=== PATIENT | male | born 1950 | race Caucasian/White ===

== ENCOUNTER 2017-08-21 09:41 | Inpatient (IN) | payer MEDICAID ==
[~2017-08-21] VITALS: Ht 182.9 cm; Wt 97.9 kg
[2017-08-21 10:30] LABS: Basophils # (auto) 0 uL; Basophils % (auto) 0.3 % (0.0-2.0); Eosinophils # (auto) 0.1 uL; Eosinophils % (auto) 1.2 % (0.0-7.0); Hematocrit 39.4 % (41.0-53.0); Hemoglobin 13.5 g/dL (13.5-17.5); Lymphocytes # (auto) 0.8 uL; Lymphocytes % (auto) 12.4 % (10.0-50.0); Mean Corpuscular Hemoglobin 31.5 pg (28.0-32.0); Mean Corpuscular Hgb Conc. 34.3 g/dL (32.0-36.0); Mean Corpuscular Volume 91.9 fL (80.0-100.0); Monocytes # (auto) 0.4 uL; Monocytes % (auto) 5.7 % (0.0-12.0); Neutrophils # (auto) 5.1 uL; Neutrophils % (auto) 80.4 % (37.0-80.0); Nucleated Red Blood Cells % 0.1 %; Platelet Count (auto) 222 10^3/uL (140-450); Red Blood Cells 4.28 10^6/uL (4.5-5.90); Red Cell Distribution Width 14.2 % (11.8-14.3); White Blood Cell 6.3 10^3/uL (4.4-10.8)
[2017-08-21] MEDS ORDERED: ONDANSETRON HCL 4 MG/2 ML VIAL IV ONE (10:30)
[2017-08-21] MEDS ORDERED: MORPHINE SULFATE 8mg/ml INJ SDV IV ONE (10:30)
[2017-08-21] MEDS ORDERED: ASPirin 81 mg TAB PO ONE (10:30)
[2017-08-21 10:53] LABS: Alanine Aminotransferase 38 U/L (16-61); Albumin 2.9 g/dL (3.4-5.0); Alkaline Phosphatase 61 U/L (45-117); Anion Gap 7 (5-15); Aspartate Aminotransferase 22 U/L (15-37); BUN/Creatinine Ratio 13.5; Bilirubin, Total 0.5 mg/dL (0.2-1.0); Blood Urea Nitrogen 17 mg/dL (7-18); Calcium 8.7 mg/dL (8.5-10.1); Carbon Dioxide 30 mmol/L (21-32); Chloride 100 mmol/L (98-107); GFR African American 74 mL/min; GFR Non-African American 61 mL/min; Glucose 95 mg/dL (74-106); Magnesium 1.4 mg/dL (1.6-2.6); Potassium 3.7 mmol/L (3.5-5.1); Sodium 137 mmol/L (136-145); Total Protein 6.9 g/dL (6.4-8.2)
[2017-08-21] MEDS ORDERED: IOHEXOL 350 MG/ML 100ML IJ ONE (11:05)
[2017-08-21] MEDS ORDERED: NITROGLYCERIN 0.4 MG SL TAB SL PRN (13:15)
[2017-08-21] MEDS ORDERED: ALBUTEROL SULF 2.5 MG/0.5ML(0.5%) NEB SOLN NEB PRN (13:15)
[2017-08-21] MEDS ORDERED: cefTRIAXone 1GM/10ml IVPUSH 10 ML IV ONE (13:15)
[2017-08-21] MEDS ORDERED: AZITHROMYCIN 500MG/ 250ML 250 ML IV ONE (13:15)
[2017-08-21] MEDS ORDERED: LACTULOSE 20Gm/30ML SOLN PO PRN (13:15)
[2017-08-21] MEDS: PROMETHAZINE HCL 25 MG/ML 1ML IV PRN (14:10)
[2017-08-21] MEDS: MORPHINE SULFATE 8mg/ml INJ SDV IV PRN ×3 (14:14→20:50)
[2017-08-21] MEDS: SODIUM CHLORIDE 0.9% 1,000 ML IV SCH (14:17)
[2017-08-21] MEDS ORDERED: ENOXAPARIN SOD 40 MG/0.4 ML SYRINGE SC SCH (14:30)
[2017-08-21 14:35] LABS: Lactic Acid w/Reflex 3.5 mmol/L (0.4-2.0)
[2017-08-21] MEDS ORDERED: ENOXAPARIN SOD 100 MG/1 ML SYRINGE SC ONE (15:00)
[2017-08-21] MEDS: DIGOXIN (250MCG/ML) 2 ML AMPULE IV SCH ×2 (15:08→21:13)
[2017-08-21 16:53] LABS: INR 1.31 (0.9-1.15); Partial Thromboplastin Time 27.8 sec (23.78-33.04); Prothrombin Time 13.8 sec (9.27-12.13)
[2017-08-21] MEDS: LORazepam 0.5 MG TAB PO PRN (18:12)
[2017-08-21] MEDS: IPRATROPIUM BROM 0.5 MG/2.5ML INH SOL NEB SCH (19:00)
[2017-08-21] MEDS: ALBUTEROL SULF 2.5 MG/0.5ML(0.5%) NEB SOLN NEB SCH (19:00)
[2017-08-21 21:28] VITALS: BP 109/66
[2017-08-21] MEDS: ENOXAPARIN SOD 100 MG/1 ML SYRINGE SC SCH (22:06)
[2017-08-22] MEDS: ALBUTEROL SULF 2.5 MG/0.5ML(0.5%) NEB SOLN NEB SCH ×4 (00:56→18:52)
[2017-08-22] MEDS: IPRATROPIUM BROM 0.5 MG/2.5ML INH SOL NEB SCH ×4 (00:56→18:52)
[2017-08-22] MEDS: BUDESONIDE (INHALATION) 0.5 MG/2 ML NEB NEB SCH ×3 (00:56→18:52)
[2017-08-22] MEDS: TEMAZEPAM 15 MG CAP PO PRN (01:06)
[2017-08-22] MEDS: LORazepam 0.5 MG TAB PO PRN (01:06)
[2017-08-22] MEDS: SODIUM CHLORIDE 0.9% 1,000 ML IV SCH ×3 (04:00→23:54)
[2017-08-22] MEDS: DIGOXIN (250MCG/ML) 2 ML AMPULE IV SCH (04:00)
[2017-08-22] MEDS ORDERED: LORazepam 2MG/ML-1ML VIAL IV ONE (05:15)
[2017-08-22 05:37] LABS: INR 1.32 (0.9-1.15); Partial Thromboplastin Time 37.9 sec (23.78-33.04); Prothrombin Time 13.9 sec (9.27-12.13)
[2017-08-22] MEDS ORDERED: FUROSEMIDE 20 MG/2 ML VIAL IV ONE (05:45)
[2017-08-22] MEDS ORDERED: diphenhdrAMINE HCL 50 MG/1 ML VL IV ONE (08:00)
[2017-08-22] MEDS ORDERED: LORazepam 2MG/ML-1ML VIAL ONE (08:01)
[2017-08-22 08:48] LABS: Hemoglobin 11.9 g/dL (13.5-17.5); Mean Corpuscular Hemoglobin 31.2 pg (28.0-32.0); Platelet Count (auto) 176 10^3/uL (140-450); Red Blood Cells 3.81 10^6/uL (4.5-5.90); Red Cell Distribution Width 14.2 % (11.8-14.3); White Blood Cell 6.6 10^3/uL (4.4-10.8)
[2017-08-22 08:50] LABS: Basophils % (manual) 0 (0.0-2.0); Eosinophils % (manual) 0 (0-7)
[2017-08-22 08:51] LABS: Blast Cells 0; Myelocytes % 0; Promyelocytes % 0; Reactive Lymphocytes 0
[2017-08-22] MEDS ORDERED: cefTRIAXone 1GM/10ml IVPUSH 10 ML IV SCH (09:00)
[2017-08-22 09:05] LABS: Albumin 2.7 g/dL (3.4-5.0); BUN/Creatinine Ratio 14.8; Bilirubin, Total 0.6 mg/dL (0.2-1.0); Potassium 3.3 mmol/L (3.5-5.1); Total Protein 6.9 g/dL (6.4-8.2)
[2017-08-22 09:07] LABS: Lactic Acid w/Reflex 4.5 mmol/L (0.4-2.0)
[2017-08-22 09:41] LABS: Band Neutrophils % (manual) 30; Lymphocytes % (manual) 7 (10.0-50.0)
[2017-08-22 09:42] LABS: Metamyelocytes % 6; Monocytes % (manual) 14 (0-12)
[2017-08-22] MEDS ORDERED: DILTIAZEM 125mg/125ml BAG KIT 125 ML IV SCH (09:45)
[2017-08-22] MEDS ORDERED: DILTIAZEM HCL 25 MG/5 ML VIAL IV ONE (09:45)
[2017-08-22] MEDS: LORazepam 2MG/ML-1ML VIAL IV PRN ×2 (10:00→19:47)
[2017-08-22] MEDS: PROMETHAZINE HCL 25 MG/ML 1ML IV PRN ×2 (10:04→16:30)
[2017-08-22] MEDS: MORPHINE SULFATE 8mg/ml INJ SDV IV PRN ×2 (10:04→16:30)
[2017-08-22] MEDS: DIGOXIN 0.25 MG TAB PO SCH (10:15)
[2017-08-22] MEDS: LINEZOLID 600MG/300ML 300 ML IV SCH ×2 (10:24→22:21)
[2017-08-22] MEDS: AZITHROMYCIN 500MG/ 250ML 250 ML IV SCH (10:53)
[2017-08-22] MEDS: ENOXAPARIN SOD 100 MG/1 ML SYRINGE SC SCH ×2 (11:02→22:00)
[2017-08-22] MEDS: PIPERACILLIN-TAZOB 3.375GM 100 ML IV SCH ×3 (12:19→23:53)
[2017-08-22 12:51] LABS: Urine Amorphous Crystal FEW /hpf (None Seen); Urine Bacteria NONE SEEN /hpf (None Seen); Urine Blood 3+ /uL (Negative); Urine Hyaline Cast FEW /lpf (0 - 2); Urine Mucus FEW (None Seen); Urine Specific Gravity 1.014 (1.001-1.035); Urine WBC 1 /hpf (0 - 3)
[2017-08-22 13:05] LABS: Alcohol, Urine < 3.0 mg/dL (0-5); Amphetamine Screen, Urine NEGATIVE (NEGATIVE); Barbiturate Scree,Urine NEGATIVE (NEGATIVE); Benzodiazephine Screen, Urine NEGATIVE (NEGATIVE); Cannabinoid Screen, Urine NEGATIVE (NEGATIVE); Cocaine Screen, Urine NEGATIVE (NEGATIVE); Opiate Scree,Urine NEGATIVE (NEGATIVE); Phencyclidine Screen, Urine NEGATIVE (NEGATIVE)
[2017-08-22] MEDS ORDERED: SODIUM CHLORIDE 0.9% 500 ML IV ONE (14:00)
[2017-08-22] MEDS ORDERED: POTASSIUM CHL 20MEQ/100ML 100 ML IV ONE ×2 (14:15→20:39)
[2017-08-22] MEDS ORDERED: PANTOPRAZOLE 40 MG TAB PO ONE (14:30)
[2017-08-22] MEDS ORDERED: ATOR10TA52 (14:49)
[2017-08-22] MEDS ORDERED: CARV3.1240 (14:49)
[2017-08-22] MEDS ORDERED: DIGO0.1262 (14:49)
[2017-08-22] MEDS ORDERED: TIOTCAP (14:49)
[2017-08-22] MEDS ORDERED: ALBUAER3 (14:49)
[2017-08-22] MEDS ORDERED: WARFARIN SODIUM 2.5 MG TAB PO ONE (17:00)
[2017-08-22] MEDS ORDERED: METOPROLOL SUCCINATE XL 50 MG TAB PO ONE (17:30)
[2017-08-22] MEDS ORDERED: POTASSIUM CHLORIDE 40 MEQ, LIDOCAINE 1% (LOCAL ANESTH.) 4 ML in SODIUM CHL 0.9% 100 ML IV ONE ×2 (17:30→20:30)
[2017-08-22] MEDS: ACETAMINOPHEN 500 MG TAB PO PRN (18:08)
[2017-08-22] MEDS ORDERED: POTASSIUM CHL 20MEQ/100ML 100 ML IV SCH ×2 (18:15→20:45)
[2017-08-22] MEDS ORDERED: ALBUMIN 25% 50 ML IV ONE ×2 (20:45→20:49)
[2017-08-22] MEDS: POTASSIUM CHL 20MEQ/100ML 100 ML IV SCH ×2 (20:45→22:45)
[2017-08-22] MEDS ORDERED: FUROSEMIDE 40 MG/4 ML VIAL ONE (21:10)
[2017-08-22] MEDS ORDERED: FUROSEMIDE 40 MG/4 ML VIAL IV ONE (21:15)
[2017-08-22] MEDS: METOPROLOL SUCCINATE XL 50 MG TAB PO SCH (22:00)
[2017-08-22] MEDS: ATORVASTATIN 20 MG TAB PO SCH (22:21)
[2017-08-23] MEDS: SODIUM CHLORIDE 0.9% 1,000 ML IV SCH ×3 (00:15→13:12)
[2017-08-23] MEDS: IPRATROPIUM BROM 0.5 MG/2.5ML INH SOL NEB SCH ×4 (00:46→18:28)
[2017-08-23] MEDS: ALBUTEROL SULF 2.5 MG/0.5ML(0.5%) NEB SOLN NEB SCH ×4 (00:46→18:00)
[2017-08-23] MEDS: ACETAMINOPHEN 500 MG TAB PO PRN (02:08)
[2017-08-23] MEDS ORDERED: MAGNESIUM SULFATE 1GM/100ML 100 ML IV ONE ×2 (04:30→05:00)
[2017-08-23] MEDS: POTASSIUM CHL 20MEQ/100ML 100 ML IV SCH ×2 (05:37→08:10)
[2017-08-23] MEDS: PIPERACILLIN-TAZOB 3.375GM 100 ML IV SCH ×3 (05:46→17:12)
[2017-08-23] MEDS: BUDESONIDE (INHALATION) 0.5 MG/2 ML NEB NEB SCH ×2 (06:09→18:28)
[2017-08-23 07:06] LABS: Basophils # (auto) 0 uL; Basophils % (auto) 0.1 % (0.0-2.0); Eosinophils # (auto) 0 uL; Eosinophils % (auto) 0.5 % (0.0-7.0); Hematocrit 32.7 % (41.0-53.0); Hemoglobin 11.3 g/dL (13.5-17.5); Lymphocytes # (auto) 0.3 uL; Lymphocytes % (auto) 4.6 % (10.0-50.0); Mean Corpuscular Hemoglobin 31.8 pg (28.0-32.0); Mean Corpuscular Hgb Conc. 34.6 g/dL (32.0-36.0); Mean Corpuscular Volume 91.9 fL (80.0-100.0); Monocytes # (auto) 0.2 uL; Monocytes % (auto) 2.3 % (0.0-12.0); Neutrophils # (auto) 6.6 uL; Neutrophils % (auto) 92.5 % (37.0-80.0); Platelet Count (auto) 159 10^3/uL (140-450); Red Blood Cells 3.56 10^6/uL (4.5-5.90); Red Cell Distribution Width 14.3 % (11.8-14.3); White Blood Cell 7.1 10^3/uL (4.4-10.8)
[2017-08-23 07:11] LABS: INR 1.07 (0.9-1.15); Prothrombin Time 11.4 sec (9.27-12.13)
[2017-08-23 07:24] LABS: Albumin 2.6 g/dL (3.4-5.0); BUN/Creatinine Ratio 19.4; Bilirubin, Total 0.7 mg/dL (0.2-1.0); Calcium 8.5 mg/dL (8.5-10.1); Potassium 3.4 mmol/L (3.5-5.1); Total Protein 6.9 g/dL (6.4-8.2)
[2017-08-23] MEDS: DIGOXIN 0.25 MG TAB PO SCH (09:50)
[2017-08-23] MEDS: PANTOPRAZOLE 40 MG TAB PO SCH (09:51)
[2017-08-23] MEDS: METOPROLOL SUCCINATE XL 50 MG TAB PO SCH ×2 (09:51→22:40)
[2017-08-23] MEDS: PROMETHAZINE HCL 25 MG/ML 1ML IV PRN ×2 (09:51→22:44)
[2017-08-23] MEDS: AZITHROMYCIN 500MG/ 250ML 250 ML IV SCH (09:52)
[2017-08-23] MEDS: ENOXAPARIN SOD 100 MG/1 ML SYRINGE SC SCH (09:56)
[2017-08-23] MEDS ORDERED: VANCOMYCIN PER PHARMACY 0 MG IV SCH (10:00)
[2017-08-23] MEDS: VANCOMYCIN 1,250 MG in D5W 5% 250 ML IV SCH ×2 (10:33→22:01)
[2017-08-23] MEDS ORDERED: FUROSEMIDE 20 MG/2 ML VIAL IV ONE (11:15)
[2017-08-23] MEDS: LORazepam 2MG/ML-1ML VIAL IV PRN (13:59)
[2017-08-23] MEDS ORDERED: WARFARIN SODIUM 2.5 MG TAB PO ONE (17:00)
[2017-08-23] MEDS ORDERED: SALINE 0.65 % NASAL SPRAY 45ML BOTTLE EACHNOSTRI SCH (18:00)
[2017-08-23] MEDS: SALINE 0.65 % NASAL SPRAY 45ML BOTTLE EACHNOSTRI SCH ×2 (18:02→22:50)
[2017-08-23] MEDS: ATORVASTATIN 20 MG TAB PO SCH (22:37)
[2017-08-23] MEDS: TEMAZEPAM 15 MG CAP PO PRN (22:44)
[2017-08-24] MEDS: IPRATROPIUM BROM 0.5 MG/2.5ML INH SOL NEB SCH ×4 (00:19→19:28)
[2017-08-24] MEDS: ALBUTEROL SULF 2.5 MG/0.5ML(0.5%) NEB SOLN NEB SCH ×4 (00:19→19:28)
[2017-08-24] MEDS: PIPERACILLIN-TAZOB 3.375GM 100 ML IV SCH ×4 (00:49→17:44)
[2017-08-24] MEDS: SODIUM CHLORIDE 0.9% 1,000 ML IV SCH ×2 (03:18→17:44)
[2017-08-24 06:22] LABS: Basophils # (auto) 0 uL; Basophils % (auto) 0.1 % (0.0-2.0); Eosinophils # (auto) 0 uL; Eosinophils % (auto) 0.1 % (0.0-7.0); Hematocrit 32.2 % (41.0-53.0); Lymphocytes # (auto) 0.6 uL; Lymphocytes % (auto) 5.3 % (10.0-50.0); Mean Corpuscular Hemoglobin 31.5 pg (28.0-32.0); Mean Corpuscular Hgb Conc. 34.2 g/dL (32.0-36.0); Mean Corpuscular Volume 92.2 fL (80.0-100.0); Monocytes # (auto) 0.7 uL; Monocytes % (auto) 6.6 % (0.0-12.0); Neutrophils # (auto) 9.4 uL; Neutrophils % (auto) 87.9 % (37.0-80.0); Nucleated Red Blood Cells % 0.1 %; Platelet Count (auto) 183 10^3/uL (140-450); Red Blood Cells 3.49 10^6/uL (4.5-5.90); Red Cell Distribution Width 14.5 % (11.8-14.3); White Blood Cell 10.7 10^3/uL (4.4-10.8)
[2017-08-24 06:36] LABS: INR 1.33 (0.9-1.15); Partial Thromboplastin Time 27.3 sec (23.78-33.04)
[2017-08-24] MEDS: SALINE 0.65 % NASAL SPRAY 45ML BOTTLE EACHNOSTRI SCH ×4 (06:46→22:00)
[2017-08-24 06:50] LABS: BUN/Creatinine Ratio 27.9; Calcium 9.2 mg/dL (8.5-10.1); Potassium 3.2 mmol/L (3.5-5.1)
[2017-08-24] MEDS: METOPROLOL SUCCINATE XL 50 MG TAB PO SCH (10:00)
[2017-08-24] MEDS ORDERED: LORATADINE 10 MG TAB PO SCH (10:00)
[2017-08-24] MEDS: BUDESONIDE (INHALATION) 0.5 MG/2 ML NEB NEB SCH ×2 (10:00→19:29)
[2017-08-24] MEDS: VANCOMYCIN 1,250 MG in D5W 5% 250 ML IV SCH ×3 (10:01→22:37)
[2017-08-24] MEDS: DIGOXIN 0.25 MG TAB PO SCH (10:02)
[2017-08-24] MEDS: LORATADINE 10 MG TAB PO SCH (10:02)
[2017-08-24] MEDS: PANTOPRAZOLE 40 MG TAB PO SCH (10:02)
[2017-08-24] MEDS: AZITHROMYCIN 500MG/ 250ML 250 ML IV SCH (10:05)
[2017-08-24] MEDS ORDERED: POTASSIUM CHL 20 Meq TABLET PO ONE (12:30)
[2017-08-24 13:00] VITALS: BP 111/42
[2017-08-24 16:58] VITALS: BP 148/79
[2017-08-24 17:00] VITALS: BP 148/79
[2017-08-24] MEDS ORDERED: WARFARIN SODIUM 2.5 MG TAB PO ONE (17:00)
[2017-08-24] MEDS: PROMETHAZINE HCL 25 MG/ML 1ML IV PRN (17:47)
[2017-08-24] MEDS: HYDROcodone-ACET 5/325MG TAB PO PRN (20:21)
[2017-08-24] MEDS: TEMAZEPAM 15 MG CAP PO PRN (20:21)
[2017-08-24] MEDS: ACETAMINOPHEN 500 MG TAB PO PRN (21:42)
[2017-08-24 22:00] VITALS: BP 166/74
[2017-08-24 23:40] VITALS: BP 166/74
[2017-08-25] MEDS: ATORVASTATIN 20 MG TAB PO SCH ×2 (00:06→21:42)
[2017-08-25] MEDS: METOPROLOL SUCCINATE XL 50 MG TAB PO SCH ×3 (00:07→21:41)
[2017-08-25] MEDS: ALBUTEROL SULF 2.5 MG/0.5ML(0.5%) NEB SOLN NEB SCH ×4 (00:28→19:52)
[2017-08-25] MEDS: IPRATROPIUM BROM 0.5 MG/2.5ML INH SOL NEB SCH ×4 (00:28→19:52)
[2017-08-25] MEDS: PIPERACILLIN-TAZOB 3.375GM 100 ML IV SCH ×6 (01:41→23:15)
[2017-08-25] MEDS: LORazepam 2MG/ML-1ML VIAL IV PRN (01:53)
[2017-08-25] MEDS: SALINE 0.65 % NASAL SPRAY 45ML BOTTLE EACHNOSTRI SCH ×4 (06:00→21:53)
[2017-08-25 06:06] LABS: Hematocrit 37.2 % (41.0-53.0); Hemoglobin 12.5 g/dL (13.5-17.5); Mean Corpuscular Hemoglobin 30.8 pg (28.0-32.0); Mean Corpuscular Hgb Conc. 33.7 g/dL (32.0-36.0); Mean Corpuscular Volume 91.5 fL (80.0-100.0); Platelet Count (auto) 177 10^3/uL (140-450); Red Blood Cells 4.07 10^6/uL (4.5-5.90); Red Cell Distribution Width 14.7 % (11.8-14.3); White Blood Cell 11.2 10^3/uL (4.4-10.8)
[2017-08-25] MEDS: BUDESONIDE (INHALATION) 0.5 MG/2 ML NEB NEB SCH ×2 (06:18→19:52)
[2017-08-25 06:23] LABS: Basophils % (manual) 0 (0.0-2.0); Blast Cells 0; Metamyelocytes % 0; Myelocytes % 0; Promyelocytes % 0; Reactive Lymphocytes 0
[2017-08-25 06:25] LABS: INR 2.95 (0.9-1.15); Prothrombin Time 29.7 sec (9.27-12.13)
[2017-08-25 06:26] LABS: Albumin 2.4 g/dL (3.4-5.0); BUN/Creatinine Ratio 22.9
[2017-08-25 06:28] LABS: Bilirubin, Total 0.5 mg/dL (0.2-1.0); Total Protein 6.9 g/dL (6.4-8.2)
[2017-08-25 07:44] LABS: Band Neutrophils % (manual) 1; Eosinophils % (manual) 4 (0-7); Lymphocytes % (manual) 6 (10.0-50.0); Monocytes % (manual) 14 (0-12)
[2017-08-25] MEDS: SODIUM CHLORIDE 0.9% 1,000 ML IV SCH (09:04)
[2017-08-25] MEDS: LORATADINE 10 MG TAB PO SCH (09:48)
[2017-08-25] MEDS: DIGOXIN 0.25 MG TAB PO SCH (09:49)
[2017-08-25] MEDS: PANTOPRAZOLE 40 MG TAB PO SCH (09:49)
[2017-08-25] MEDS ORDERED: VANCOMYCIN 1,250 MG in D5W 5% 250 ML IV SCH (10:00)
[2017-08-25] MEDS: AZITHROMYCIN 500MG/ 250ML 250 ML IV SCH (11:13)
[2017-08-25 13:00] VITALS: BP 124/76
[2017-08-25] MEDS ORDERED: POTASSIUM CHL 20 Meq TABLET PO ONE (13:30)
[2017-08-25] MEDS: predniSONE 20 MG TAB PO SCH (14:23)
[2017-08-25] MEDS: SOD CHL 0.45% WITH 20MEQ KCL 1,000 ML IV SCH (14:23)
[2017-08-25 17:00] VITALS: BP 104/61
[2017-08-25 22:00] VITALS: BP 117/67
[2017-08-25 22:40] VITALS: BP 112/61
[2017-08-25] MEDS: TEMAZEPAM 15 MG CAP PO PRN (23:15)
[2017-08-26] MEDS: IPRATROPIUM BROM 0.5 MG/2.5ML INH SOL NEB SCH ×4 (01:36→19:27)
[2017-08-26] MEDS: ALBUTEROL SULF 2.5 MG/0.5ML(0.5%) NEB SOLN NEB SCH ×4 (01:36→19:27)
[2017-08-26] MEDS: SOD CHL 0.45% WITH 20MEQ KCL 1,000 ML IV SCH ×2 (03:32→21:09)
[2017-08-26 04:45] VITALS: BP 128/69
[2017-08-26] MEDS: PIPERACILLIN-TAZOB 3.375GM 100 ML IV SCH ×4 (05:29→23:42)
[2017-08-26] MEDS: SALINE 0.65 % NASAL SPRAY 45ML BOTTLE EACHNOSTRI SCH ×4 (05:29→21:09)
[2017-08-26] MEDS: BUDESONIDE (INHALATION) 0.5 MG/2 ML NEB NEB SCH ×2 (05:54→19:27)
[2017-08-26 06:41] LABS: Hematocrit 36.8 % (41.0-53.0); Hemoglobin 12.7 g/dL (13.5-17.5); Mean Corpuscular Hemoglobin 31.5 pg (28.0-32.0); Mean Corpuscular Hgb Conc. 34.5 g/dL (32.0-36.0); Mean Corpuscular Volume 91.3 fL (80.0-100.0); Platelet Count (auto) 204 10^3/uL (140-450); Red Blood Cells 4.03 10^6/uL (4.5-5.90); Red Cell Distribution Width 14.3 % (11.8-14.3); White Blood Cell 16.7 10^3/uL (4.4-10.8)
[2017-08-26 06:59] LABS: Calcium 9.1 mg/dL (8.5-10.1); Potassium 3.6 mmol/L (3.5-5.1)
[2017-08-26 07:02] LABS: BUN/Creatinine Ratio 24.2
[2017-08-26 07:16] LABS: Band Neutrophils % (manual) 0; Basophils % (manual) 0 (0.0-2.0); Blast Cells 0; Metamyelocytes % 0; Myelocytes % 0; Promyelocytes % 0; Reactive Lymphocytes 0
[2017-08-26 07:43] LABS: INR 3.29 (0.9-1.15); Partial Thromboplastin Time 32.4 sec (23.78-33.04); Prothrombin Time 32.9 sec (9.27-12.13)
[2017-08-26 09:00] VITALS: BP 113/57
[2017-08-26] MEDS: AZITHROMYCIN 500MG/ 250ML 250 ML IV SCH (10:06)
[2017-08-26] MEDS: DIGOXIN 0.25 MG TAB PO SCH (10:06)
[2017-08-26] MEDS: predniSONE 20 MG TAB PO SCH (10:06)
[2017-08-26] MEDS: METOPROLOL SUCCINATE XL 50 MG TAB PO SCH ×2 (10:07→21:10)
[2017-08-26] MEDS: LORATADINE 10 MG TAB PO SCH (10:07)
[2017-08-26] MEDS: PANTOPRAZOLE 40 MG TAB PO SCH (10:08)
[2017-08-26 10:17] LABS: Lymphocytes % (manual) 13 (10.0-50.0); Monocytes % (manual) 16 (0-12)
[2017-08-26 10:18] LABS: Eosinophils % (manual) 2 (0-7)
[2017-08-26 13:00] VITALS: BP 119/61
[2017-08-26 17:00] VITALS: BP 111/63
[2017-08-26 20:38] VITALS: BP 104/48
[2017-08-26] MEDS: ATORVASTATIN 20 MG TAB PO SCH (21:09)
[2017-08-26] MEDS: TEMAZEPAM 15 MG CAP PO PRN (21:10)
[2017-08-26 22:10] VITALS: BP 124/62
[2017-08-27] VITALS (7 sets, daily range): BP systolic 103–137; BP diastolic 49–67
[2017-08-27] MEDS: IPRATROPIUM BROM 0.5 MG/2.5ML INH SOL NEB SCH ×4 (00:41→19:07)
[2017-08-27] MEDS: ALBUTEROL SULF 2.5 MG/0.5ML(0.5%) NEB SOLN NEB SCH ×4 (00:41→19:08)
[2017-08-27] MEDS: PIPERACILLIN-TAZOB 3.375GM 100 ML IV SCH ×4 (05:29→23:42)
[2017-08-27] MEDS: SALINE 0.65 % NASAL SPRAY 45ML BOTTLE EACHNOSTRI SCH ×4 (05:29→21:36)
[2017-08-27] MEDS: SOD CHL 0.45% WITH 20MEQ KCL 1,000 ML IV SCH ×2 (05:29→19:05)
[2017-08-27 05:51] LABS: Hematocrit 34.7 % (41.0-53.0); Hemoglobin 11.6 g/dL (13.5-17.5); Mean Corpuscular Hgb Conc. 33.4 g/dL (32.0-36.0); Mean Corpuscular Volume 92.8 fL (80.0-100.0); Platelet Count (auto) 286 10^3/uL (140-450); Red Blood Cells 3.74 10^6/uL (4.5-5.90); Red Cell Distribution Width 14.6 % (11.8-14.3); White Blood Cell 28.4 10^3/uL (4.4-10.8)
[2017-08-27 06:05] LABS: INR 2.23 (0.9-1.15); Partial Thromboplastin Time 28.5 sec (23.78-33.04); Prothrombin Time 22.8 sec (9.27-12.13)
[2017-08-27 06:19] LABS: Band Neutrophils % (manual) 0; Basophils % (manual) 0 (0.0-2.0); Blast Cells 0; Promyelocytes % 0; Reactive Lymphocytes 0
[2017-08-27 06:23] LABS: BUN/Creatinine Ratio 17.2; Calcium 9.1 mg/dL (8.5-10.1)
[2017-08-27 06:37] LABS: Potassium 2.9 mmol/L (3.5-5.1)
[2017-08-27] MEDS: BUDESONIDE (INHALATION) 0.5 MG/2 ML NEB NEB SCH ×2 (06:37→19:08)
[2017-08-27] MEDS ORDERED: POTASSIUM CHL 20 Meq TABLET PO ONE (07:45)
[2017-08-27] MEDS: HYDROcodone-ACET 5/325MG TAB PO PRN ×2 (08:56→20:08)
[2017-08-27] MEDS: METOPROLOL SUCCINATE XL 50 MG TAB PO SCH ×2 (10:00→21:37)
[2017-08-27] MEDS: AZITHROMYCIN 500MG/ 250ML 250 ML IV SCH (10:04)
[2017-08-27] MEDS: predniSONE 20 MG TAB PO SCH (10:04)
[2017-08-27] MEDS: PANTOPRAZOLE 40 MG TAB PO SCH (10:04)
[2017-08-27] MEDS: LORATADINE 10 MG TAB PO SCH (10:05)
[2017-08-27] MEDS: DIGOXIN 0.25 MG TAB PO SCH (10:05)
[2017-08-27] MEDS: PROMETHAZINE HCL 25 MG/ML 1ML IV PRN ×2 (11:16→18:17)
[2017-08-27 11:48] LABS: Eosinophils % (manual) 3 (0-7); Lymphocytes % (manual) 18 (10.0-50.0); Metamyelocytes % 4; Monocytes % (manual) 9 (0-12); Myelocytes % 3
[2017-08-27] MEDS ORDERED: WARFARIN SODIUM 2 MG TAB PO ONE (17:00)
[2017-08-27] MEDS: ATORVASTATIN 20 MG TAB PO SCH (21:36)
[2017-08-28] MEDS: IPRATROPIUM BROM 0.5 MG/2.5ML INH SOL NEB SCH ×4 (01:17→18:35)
[2017-08-28] MEDS: ALBUTEROL SULF 2.5 MG/0.5ML(0.5%) NEB SOLN NEB SCH ×4 (01:17→18:35)
[2017-08-28 04:50] VITALS: BP 108/75
[2017-08-28] MEDS: HYDROcodone-ACET 5/325MG TAB PO PRN (05:06)
[2017-08-28] MEDS: SALINE 0.65 % NASAL SPRAY 45ML BOTTLE EACHNOSTRI SCH ×4 (05:19→21:23)
[2017-08-28] MEDS: PIPERACILLIN-TAZOB 3.375GM 100 ML IV SCH ×4 (05:20→23:28)
[2017-08-28 05:52] LABS: Hematocrit 33.8 % (41.0-53.0); Mean Corpuscular Hemoglobin 30.5 pg (28.0-32.0); Mean Corpuscular Hgb Conc. 32.7 g/dL (32.0-36.0); Mean Corpuscular Volume 93.4 fL (80.0-100.0); Platelet Count (auto) 341 10^3/uL (140-450); Red Blood Cells 3.62 10^6/uL (4.5-5.90); Red Cell Distribution Width 14.8 % (11.8-14.3); White Blood Cell 27.5 10^3/uL (4.4-10.8)
[2017-08-28 06:06] LABS: Basophils % (manual) 0 (0.0-2.0); Blast Cells 0; Metamyelocytes % 0; Myelocytes % 0; Promyelocytes % 0
[2017-08-28 06:09] LABS: INR 1.89 (0.9-1.15); Partial Thromboplastin Time 26.8 sec (23.78-33.04); Prothrombin Time 19.5 sec (9.27-12.13)
[2017-08-28 06:40] LABS: Calcium 8.7 mg/dL (8.5-10.1); Magnesium 2.1 mg/dL (1.6-2.6); Potassium 3.4 mmol/L (3.5-5.1)
[2017-08-28] MEDS: BUDESONIDE (INHALATION) 0.5 MG/2 ML NEB NEB SCH ×2 (07:07→18:35)
[2017-08-28 07:57] LABS: Band Neutrophils % (manual) 5; Eosinophils % (manual) 2 (0-7); Lymphocytes % (manual) 27 (10.0-50.0); Monocytes % (manual) 5 (0-12); Reactive Lymphocytes 4
[2017-08-28 08:02] VITALS: BP 119/57
[2017-08-28] MEDS: SOD CHL 0.45% WITH 20MEQ KCL 1,000 ML IV SCH ×2 (08:25→17:00)
[2017-08-28] MEDS: LORATADINE 10 MG TAB PO SCH (09:39)
[2017-08-28] MEDS: PANTOPRAZOLE 40 MG TAB PO SCH (09:39)
[2017-08-28] MEDS: METOPROLOL SUCCINATE XL 50 MG TAB PO SCH ×2 (09:40→21:24)
[2017-08-28] MEDS: DIGOXIN 0.25 MG TAB PO SCH (09:41)
[2017-08-28] MEDS ORDERED: predniSONE 20 MG TAB PO SCH (10:00)
[2017-08-28 11:55] VITALS: BP 124/52
[2017-08-28] MEDS ORDERED: TEMAZEPAM 15 MG CAP PO PRN (13:00)
[2017-08-28] MEDS ORDERED: POTASSIUM CHL 20 Meq TABLET PO ONE (13:00)
[2017-08-28] MEDS ORDERED: HYDROcodone-ACET 5/325MG TAB PO PRN (13:00)
[2017-08-28 16:06] VITALS: BP 115/68
[2017-08-28] MEDS ORDERED: WARFARIN SODIUM 5 MG TAB PO ONE (17:00)
[2017-08-28] MEDS: ATORVASTATIN 20 MG TAB PO SCH (21:23)
[2017-08-28 22:00] VITALS: BP 110/64
[2017-08-28] MEDS: PROMETHAZINE HCL 25 MG/ML 1ML IV PRN (23:32)
[2017-08-29 05:00] VITALS: BP 115/71
[2017-08-29] MEDS: PROMETHAZINE HCL 25 MG/ML 1ML IV PRN ×2 (05:02→06:24)
[2017-08-29 05:45] LABS: Basophils # (auto) 0.1 uL; Basophils % (auto) 0.3 % (0.0-2.0); Eosinophils # (auto) 0.4 uL; Hematocrit 32.5 % (41.0-53.0); Hemoglobin 10.9 g/dL (13.5-17.5); Lymphocytes # (auto) 4.1 uL; Lymphocytes % (auto) 19.5 % (10.0-50.0); Mean Corpuscular Hemoglobin 31.2 pg (28.0-32.0); Mean Corpuscular Hgb Conc. 33.6 g/dL (32.0-36.0); Mean Corpuscular Volume 92.9 fL (80.0-100.0); Monocytes # (auto) 1.8 uL; Monocytes % (auto) 8.7 % (0.0-12.0); Neutrophils # (auto) 14.5 uL; Neutrophils % (auto) 69.5 % (37.0-80.0); Nucleated Red Blood Cells % 0.1 %; Platelet Count (auto) 365 10^3/uL (140-450); Red Cell Distribution Width 14.5 % (11.8-14.3); White Blood Cell 20.9 10^3/uL (4.4-10.8)
[2017-08-29 06:05] LABS: Potassium 3.5 mmol/L (3.5-5.1)
[2017-08-29] MEDS: PIPERACILLIN-TAZOB 3.375GM 100 ML IV SCH ×2 (06:23→11:50)
[2017-08-29] MEDS: SALINE 0.65 % NASAL SPRAY 45ML BOTTLE EACHNOSTRI SCH ×2 (06:23→11:50)
[2017-08-29] MEDS: IPRATROPIUM BROM 0.5 MG/2.5ML INH SOL NEB SCH ×3 (07:01→11:55)
[2017-08-29] MEDS: ALBUTEROL SULF 2.5 MG/0.5ML(0.5%) NEB SOLN NEB SCH ×3 (07:02→11:55)
[2017-08-29] MEDS: BUDESONIDE (INHALATION) 0.5 MG/2 ML NEB NEB SCH (07:02)
[2017-08-29 09:00] VITALS: BP 112/72
[2017-08-29] MEDS: PANTOPRAZOLE 40 MG TAB PO SCH (09:22)
[2017-08-29] MEDS: DIGOXIN 0.25 MG TAB PO SCH (09:22)
[2017-08-29] MEDS: LORATADINE 10 MG TAB PO SCH (09:22)
[2017-08-29] MEDS: METOPROLOL SUCCINATE XL 50 MG TAB PO SCH (09:23)
[2017-08-29] MEDS ORDERED: predniSONE 20 MG TAB PO SCH (10:00)
[2017-08-29] MEDS: SOD CHL 0.45% WITH 20MEQ KCL 1,000 ML IV SCH (11:06)
[2017-08-29 11:20] LABS: INR 1.4 (0.9-1.15); Prothrombin Time 14.7 sec (9.27-12.13)
[2017-08-29] MEDS ORDERED: POTASSIUM CHL 20 Meq TABLET PO ONE (11:30)
[2017-08-29 13:00] VITALS: BP_SYST 105; BP_SYST 175; BP_DIAS 57; BP_DIAS 80
[2017-08-29 13:10] LABS: Hematocrit 36.4 % (41.0-53.0); Mean Corpuscular Hemoglobin 30.8 pg (28.0-32.0); Mean Corpuscular Hgb Conc. 32.9 g/dL (32.0-36.0); Mean Corpuscular Volume 93.7 fL (80.0-100.0); Platelet Count (auto) 413 10^3/uL (140-450); Red Blood Cells 3.89 10^6/uL (4.5-5.90); Red Cell Distribution Width 15.1 % (11.8-14.3); White Blood Cell 18.5 10^3/uL (4.4-10.8)
[2017-08-29 13:24] LABS: Basophils % (manual) 0 (0.0-2.0); Blast Cells 0; Promyelocytes % 0; Reactive Lymphocytes 0
[2017-08-29 13:42] LABS: Band Neutrophils % (manual) 1; Eosinophils % (manual) 2 (0-7); Lymphocytes % (manual) 17 (10.0-50.0); Metamyelocytes % 3; Monocytes % (manual) 4 (0-12); Myelocytes % 3
[2017-08-29] MEDS ORDERED: LEVO750T2 PO (14:19)
[2017-08-29] MEDS ORDERED: TIOTCAP IN (14:19)
[2017-08-29] MEDS ORDERED: APIX5TAB PO (14:19)
[2017-08-29] MEDS ORDERED: ALBUAER3 IN (14:19)
[2017-08-29] MEDS ORDERED: SACC250C PO (14:22)
[2017-08-29] MEDS ORDERED: APIXABAN 5 MG TAB PO SCH (22:00)
== END 2017-08-29 16:50 | disposition home health service (06) | DRG 720 ==
LOC: ER 09:41 → TELE 09:42 → TELE-WESTW 08-24 12:41
PROVIDERS: ADMIT Internal Medicine; ATTEND Internal Medicine
DX: A41.9 Sepsis, unspecified organism (principal); N17.0 Acute kidney failure with tubular necrosis; J96.01 Acute respiratory failure with hypoxia; J13 Pneumonia due to Streptococcus pneumoniae; E44.0 Moderate protein-calorie malnutrition; I11.9 Hypertensive heart disease without heart failure; K76.0 Fatty (change of) liver, not elsewhere classified; J44.0 Chronic obstructive pulmonary disease with (acute) lower respiratory infection; I48.0 Paroxysmal atrial fibrillation; I48.91 Unspecified atrial fibrillation; F41.9 Anxiety disorder, unspecified; G47.00 Insomnia, unspecified; J44.1 Chronic obstructive pulmonary disease with (acute) exacerbation; E87.6 Hypokalemia; I25.10 Atherosclerotic heart disease of native coronary artery without angina pectoris; E78.5 Hyperlipidemia, unspecified; E66.01 Morbid (severe) obesity due to excess calories; T38.0X5A Adverse effect of glucocorticoids and synthetic analogues, initial encounter; Z86.711 Personal history of pulmonary embolism; I25.2 Old myocardial infarction; Z87.891 Personal history of nicotine dependence; Z95.5 Presence of coronary angioplasty implant and graft; Z68.29 Body mass index [BMI] 29.0-29.9, adult
CPT/HCPCS: 36415; 36600; 71045; 71046; 71275; 80048; 80053; 80061; 80162; 80202; 80307; 81001; 82805; 82962; 83605; 83735; 83880; 84132; 84484; 85007; 85025; 85027; 85610; 85730; 87040; 87070; 87077; 87086; 87186; 87205; 93005; 93306; 94640; 97110; 97116; 97163; 97530; 99291; J2001; J2270; J2543; J3480; J7060

== ENCOUNTER 2017-09-10 11:13 | Emergency (ER) | payer MEDICAID ==
[~2017-09-10] VITALS: Ht 185.4 cm; Wt 93.0 kg
[~2017-09-10 11:13] MED LIST: ALBUAER3; ALBUAER3 IN; APIX5TAB PO; ATOR10TA52; CARV3.1240; DIGO0.1262; LEVO750T2 PO; SACC250C PO; TIOTCAP; TIOTCAP IN
[2017-09-10 11:30] VITALS: BP 94/70
[2017-09-10 12:50] LABS: Basophils # (auto) 0.1 uL; Basophils % (auto) 1.1 % (0.0-2.0); Eosinophils # (auto) 0.4 uL; Eosinophils % (auto) 3.2 % (0.0-7.0); Hematocrit 37.9 % (41.0-53.0); Hemoglobin 12.8 g/dL (13.5-17.5); Lymphocytes % (auto) 21.6 % (10.0-50.0); Mean Corpuscular Hgb Conc. 33.7 g/dL (32.0-36.0); Monocytes # (auto) 0.7 uL; Monocytes % (auto) 5.4 % (0.0-12.0); Neutrophils # (auto) 9.4 uL; Neutrophils % (auto) 68.7 % (37.0-80.0); Platelet Count (auto) 377 10^3/uL (140-450); Red Blood Cells 4.12 10^6/uL (4.5-5.90); Red Cell Distribution Width 13.9 % (11.8-14.3); White Blood Cell 13.7 10^3/uL (4.4-10.8)
[2017-09-10 13:28] LABS: Alanine Aminotransferase 40 U/L (16-61); Albumin 2.8 g/dL (3.4-5.0); Alkaline Phosphatase 86 U/L (45-117); Anion Gap 8 (5-15); Aspartate Aminotransferase 22 U/L (15-37); BUN/Creatinine Ratio 10.9; Bilirubin, Total 0.4 mg/dL (0.2-1.0); Blood Urea Nitrogen 10 mg/dL (7-18); Calcium 9.1 mg/dL (8.5-10.1); Carbon Dioxide 26 mmol/L (21-32); Chloride 106 mmol/L (98-107); GFR African American 106 mL/min; GFR Non-African American 88 mL/min; Glucose 101 mg/dL (74-106); Magnesium 2.1 mg/dL (1.6-2.6); Potassium 4.4 mmol/L (3.5-5.1); Sodium 140 mmol/L (136-145); Total Protein 7.8 g/dL (6.4-8.2)
== END 2017-09-10 18:28 | disposition home or self-care (01) ==
LOC: ER 11:13
DX: R42 Dizziness and giddiness (principal); R53.1 Weakness; J44.9 Chronic obstructive pulmonary disease, unspecified; I10 Essential (primary) hypertension; E78.5 Hyperlipidemia, unspecified; Z79.899 Other long term (current) drug therapy
CPT/HCPCS: 36415; 70450; 71046; 80053; 82962; 83735; 84484; 85025; 93005; 94761

== ENCOUNTER → 2018-11-01 | Outpatient (CLI) | payer MEDICARE, OTHER ==
[~2018-11-01] MED LIST changes: -ALBUAER3; -APIX5TAB PO; +ASPI-404 PO; -ATOR10TA52; +ATOR10TA52 PO; -CARV3.1240; +CARV3.1240 PO; -DIGO0.1262; +DIGO0.1262 PO; -LEVO750T2 PO; +METO25TA5 PO; +POM PO; -SACC250C PO; -TIOTCAP
[2018-11-01 10:50] LABS: Basophils # (auto) 0.1 uL; Eosinophils # (auto) 0.3 uL; Eosinophils % (auto) 3.1 % (0.0-7.0); Hemoglobin 14.2 g/dL (13.5-17.5); Lymphocytes # (auto) 2.1 uL; Mean Corpuscular Hemoglobin 32.2 pg (28.0-32.0); Mean Corpuscular Hgb Conc. 33.8 g/dL (32.0-36.0); Mean Corpuscular Volume 95.2 fL (80.0-100.0); Monocytes # (auto) 0.7 uL; Monocytes % (auto) 7.8 % (0.0-12.0); Neutrophils # (auto) 5.9 uL; Neutrophils % (auto) 65.1 % (37.0-80.0); Nucleated Red Blood Cells % 0.1 %; Platelet Count (auto) 250 10^3/uL (140-450); Red Blood Cells 4.41 10^6/uL (4.5-5.90)
[2018-11-01 11:01] LABS: Albumin 3.8 g/dL (3.4-5.0); BUN/Creatinine Ratio 21.4; Calcium 9.6 mg/dL (8.5-10.1); Potassium 3.8 mmol/L (3.5-5.1)
[2018-11-01 11:06] LABS: Bilirubin, Total 0.5 mg/dL (0.2-1.0)
== END | disposition home or self-care (01) ==
LOC: LAB 10:10
PROVIDERS: ATTEND Internal Medicine
DX: I25.2 Old myocardial infarction (principal); I48.0 Paroxysmal atrial fibrillation; I70.0 Atherosclerosis of aorta; I11.9 Hypertensive heart disease without heart failure; J43.9 Emphysema, unspecified; Z87.891 Personal history of nicotine dependence
CPT/HCPCS: 36415; 80053; 80061; 84153; 84443; 85025

== ENCOUNTER → 2018-12-04 | Outpatient (CLI) | payer MEDICARE, OTHER ==
[2018-12-04 13:08] LABS: Free T4 (Free Thyroxine) 1.23 ng/dL (0.89-1.76); T3 Total 0.97 ng/mL (0.60-1.81)
== END | disposition home or self-care (01) ==
LOC: LAB 11:07
PROVIDERS: ATTEND Internal Medicine
DX: E03.9 Hypothyroidism, unspecified (principal)
CPT/HCPCS: 36415; 84439; 84443; 84480

== ENCOUNTER 2019-08-04 16:28 | Inpatient (IN) | payer BC, MEDICAID ==
[~2019-08-04] VITALS: Ht 182.9 cm; Wt 102.7 kg
[2019-08-04] MEDS: MAGNESIUM SULFATE 1GM/100ML 100 ML IV SCH ×4 (01:32→23:36)
[~2019-08-04 16:28] MED LIST changes: +DIGO0.12 PO; -DIGO0.1262 PO
[2019-08-04] MEDS ORDERED: FUROSEMIDE 40 MG/4 ML VIAL IV ONE (17:00)
[2019-08-04 17:27] LABS: Basophils # (auto) 0.1 10 ^3/uL (0-0.2); Basophils % (auto) 0.8 % (0.0-2.0); Eosinophils # (auto) 0.5 10 ^3/uL (0-0.8); Eosinophils % (auto) 6.2 % (0.0-7.0); Hematocrit 37.2 % (41.0-53.0); Hemoglobin 12.4 g/dL (13.5-17.5); Lymphocytes # (auto) 1.4 10 ^3/uL (0.4-5.4); Mean Corpuscular Hemoglobin 31.7 pg (28.0-32.0); Mean Corpuscular Hgb Conc. 33.2 g/dL (32.0-36.0); Mean Corpuscular Volume 95.4 fL (80.0-100.0); Monocytes # (auto) 0.6 10 ^3/uL (0-1.3); Monocytes % (auto) 7.2 % (0.0-12.0); Neutrophils # (auto) 5.7 10 ^3/uL (1.6-8.6); Neutrophils % (auto) 68.8 % (37.0-80.0); Nucleated Red Blood Cells % 0.1 %; Platelet Count (auto) 217 10^3/uL (140-450); Red Cell Distribution Width 14.9 % (11.8-14.3); White Blood Cell 8.3 10^3/uL (4.4-10.8)
[2019-08-04 17:53] LABS: Alanine Aminotransferase 49 U/L (16-61); Albumin 2.9 g/dL (3.4-5.0); Anion Gap 6 (5-15); Calcium 9.1 mg/dL (8.5-10.1); Carbon Dioxide 27 mmol/L (21-32); Chloride 105 mmol/L (98-107); Glucose 103 mg/dL (74-106); Magnesium 1.2 mg/dL (1.6-2.6); Potassium 3.6 mmol/L (3.5-5.1); Sodium 138 mmol/L (136-145)
[2019-08-04 17:58] LABS: Alkaline Phosphatase 92 U/L (45-117); Aspartate Aminotransferase 42 U/L (15-37); BUN/Creatinine Ratio 18.1; Bilirubin, Total 0.4 mg/dL (0.2-1.0); Blood Urea Nitrogen 15 mg/dL (7-18); GFR African American 119 mL/min; GFR Non-African American 98 mL/min; Total Protein 7.1 g/dL (6.4-8.2)
[2019-08-04] MEDS ORDERED: NITROGLYCERIN 0.4 MG SL TAB SL PRN (18:15)
[2019-08-04] MEDS ORDERED: MORPHINE SULF INJ 2 MG/ML SYRINGE 1ML IV PRN (18:15)
[2019-08-04] MEDS ORDERED: IPRATROPIUM BROM 0.5 MG/2.5ML INH SOL NEB ONE (19:15)
[2019-08-04] MEDS ORDERED: ALBUTEROL SULF 2.5 MG/0.5ML(0.5%) NEB SOLN NEB ONE (19:30)
[2019-08-04] MEDS: IPRATROPIUM BROM 0.5 MG/2.5ML INH SOL NEB PRN (21:48)
[2019-08-04] MEDS: BUDESONIDE (INHALATION) 0.5 MG/2 ML NEB NEB SCH (21:50)
[2019-08-04] MEDS ORDERED: BUDESONIDE (INHALATION) 0.5 MG/2 ML NEB ONE (21:50)
[2019-08-04] MEDS: CARVEDILOL 3.125 MG TAB PO SCH (22:05)
[2019-08-04] MEDS: ATORVASTATIN 20 MG TAB PO SCH (22:05)
[2019-08-04] MEDS: DIGOXIN 0.125 MG TAB PO SCH (22:05)
[2019-08-04] MEDS: methylPREDNISolone SOD SUCC 40 MG/ML VL IV SCH (22:05)
[2019-08-04] MEDS: METOPROLOL TARTRATE 25 MG TAB PO SCH (22:06)
[2019-08-04] MEDS: DOXYCYCLINE 100 MG TAB/CAP PO SCH (22:30)
[2019-08-05] MEDS: BUDESONIDE (INHALATION) 0.5 MG/2 ML NEB NEB SCH ×3 (00:56→19:40)
[2019-08-05 01:45] VITALS: BP 104/69
[2019-08-05] MEDS: IPRATROPIUM BROM 0.5 MG/2.5ML INH SOL NEB PRN ×5 (01:51→22:42)
[2019-08-05] MEDS: ALBUTEROL SULF 2.5 MG/0.5ML(0.5%) NEB SOLN NEB PRN ×5 (01:51→22:42)
[2019-08-05 04:20] VITALS: BP 135/65
[2019-08-05 04:52] VITALS: BP 137/88
[2019-08-05] MEDS: FUROSEMIDE 40 MG/4 ML VIAL IV SCH ×2 (06:26→18:00)
[2019-08-05] MEDS: LEVOTHYROXINE SODIUM 100 MCG TAB PO SCH (06:26)
[2019-08-05 07:19] LABS: Basophils # (auto) 0 10 ^3/uL (0-0.2); Basophils % (auto) 0.6 % (0.0-2.0); Eosinophils # (auto) 0 10 ^3/uL (0-0.8); Eosinophils % (auto) 0.2 % (0.0-7.0); Hematocrit 39.8 % (41.0-53.0); Hemoglobin 13.4 g/dL (13.5-17.5); Lymphocytes # (auto) 0.4 10 ^3/uL (0.4-5.4); Mean Corpuscular Hemoglobin 31.9 pg (28.0-32.0); Mean Corpuscular Hgb Conc. 33.8 g/dL (32.0-36.0); Mean Corpuscular Volume 94.6 fL (80.0-100.0); Monocytes # (auto) 0.1 10 ^3/uL (0-1.3); Monocytes % (auto) 1.1 % (0.0-12.0); Neutrophils # (auto) 6.8 10 ^3/uL (1.6-8.6); Neutrophils % (auto) 92.1 % (37.0-80.0); Nucleated Red Blood Cells % 0.2 %; Platelet Count (auto) 243 10^3/uL (140-450); Red Blood Cells 4.21 10^6/uL (4.5-5.90); Red Cell Distribution Width 14.7 % (11.8-14.3); White Blood Cell 7.4 10^3/uL (4.4-10.8)
[2019-08-05 07:32] LABS: INR 1.02 (0.9-1.15); Partial Thromboplastin Time 24.7 sec (23.64-32.05)
[2019-08-05 07:41] LABS: Albumin 3.4 g/dL (3.4-5.0); Calcium 9.2 mg/dL (8.5-10.1); Magnesium 2.3 mg/dL (1.6-2.6)
[2019-08-05 07:46] LABS: BUN/Creatinine Ratio 19.6; Bilirubin, Total 0.4 mg/dL (0.2-1.0); Phosphorus 1.8 mg/dL (2.5-4.90); Total Protein 7.9 g/dL (6.4-8.2)
[2019-08-05 09:00] VITALS: BP 125/68
[2019-08-05] MEDS: methylPREDNISolone SOD SUCC 40 MG/ML VL IV SCH ×2 (10:46→21:38)
[2019-08-05] MEDS: AMIODARONE HCL 200 MG TAB PO SCH (10:47)
[2019-08-05] MEDS: CARVEDILOL 3.125 MG TAB PO SCH ×2 (10:49→21:34)
[2019-08-05] MEDS: ASPirin-EC 81 mg tab PO SCH (10:49)
[2019-08-05] MEDS: DOXYCYCLINE 100 MG TAB/CAP PO SCH ×2 (10:50→21:35)
[2019-08-05] MEDS: METOPROLOL TARTRATE 25 MG TAB PO SCH ×2 (10:50→21:36)
[2019-08-05] MEDS: LISINOPRIL 10 MG TAB PO SCH (10:50)
[2019-08-05 11:38] LABS: Urine Bacteria NONE SEEN /hpf (None Seen); Urine Blood Negative /uL (Negative); Urine Specific Gravity 1.007 (1.001-1.035); Urine WBC 6 /hpf (0 - 3)
[2019-08-05 13:00] VITALS: BP 134/81
[2019-08-05] MEDS ORDERED: BUDE1AER4 IN (16:07)
[2019-08-05] MEDS ORDERED: ATOR40TA52 PO (16:14)
[2019-08-05] MEDS ORDERED: HYDR12.56 PO (16:16)
[2019-08-05] MEDS ORDERED: AMIO200T33 PO (16:16)
[2019-08-05] MEDS ORDERED: RIVA20TA PO (16:17)
[2019-08-05] MEDS ORDERED: LEVO100T8 PO (16:18)
[2019-08-05] MEDS ORDERED: ALBU0.084 NEB (16:18)
[2019-08-05] MEDS ORDERED: RIVAROXABAN 20 MG TAB PO SCH (18:00)
[2019-08-05] MEDS ORDERED: FUROSEMIDE 100 MG/10ML VIAL IV ONE (20:15)
[2019-08-05] MEDS: RIVAROXABAN 20 MG TAB PO SCH (21:35)
[2019-08-05] MEDS: ATORVASTATIN 20 MG TAB PO SCH (21:36)
[2019-08-05] MEDS: DIGOXIN 0.125 MG TAB PO SCH (21:37)
[2019-08-05 22:00] VITALS: BP 120/69
[2019-08-06] MEDS: guaiFENesin-DM 100/10mg/5ml SYR PO PRN ×4 (00:59→20:02)
[2019-08-06] MEDS: IPRATROPIUM BROM 0.5 MG/2.5ML INH SOL NEB PRN ×3 (02:39→10:24)
[2019-08-06] MEDS: ALBUTEROL SULF 2.5 MG/0.5ML(0.5%) NEB SOLN NEB PRN ×3 (02:39→10:24)
[2019-08-06 05:00] VITALS: BP 116/64
[2019-08-06] MEDS: BUDESONIDE (INHALATION) 0.5 MG/2 ML NEB NEB SCH ×2 (06:16→19:04)
[2019-08-06] MEDS: LEVOTHYROXINE SODIUM 100 MCG TAB PO SCH (06:25)
[2019-08-06] MEDS: FUROSEMIDE 40 MG/4 ML VIAL IV SCH ×2 (06:25→17:45)
[2019-08-06] MEDS ORDERED: ADENOSINE 87 MG in GIVE UN-DILUTED 0 ML IV STA (08:33)
[2019-08-06 09:00] VITALS: BP 115/68
[2019-08-06] MEDS: methylPREDNISolone SOD SUCC 40 MG/ML VL IV SCH ×2 (10:38→22:32)
[2019-08-06] MEDS: CARVEDILOL 3.125 MG TAB PO SCH ×2 (10:40→22:33)
[2019-08-06] MEDS: AMIODARONE HCL 200 MG TAB PO SCH (10:40)
[2019-08-06] MEDS: METOPROLOL TARTRATE 25 MG TAB PO SCH ×2 (10:41→22:36)
[2019-08-06] MEDS: DOXYCYCLINE 100 MG TAB/CAP PO SCH ×2 (10:41→22:36)
[2019-08-06] MEDS: ASPirin-EC 81 mg tab PO SCH (10:41)
[2019-08-06] MEDS: LISINOPRIL 10 MG TAB PO SCH (10:42)
[2019-08-06 13:00] VITALS: BP 117/67
[2019-08-06] MEDS: ALBUTEROL SULF 2.5 MG/0.5ML(0.5%) NEB SOLN NEB SCH ×3 (14:37→22:29)
[2019-08-06] MEDS: IPRATROPIUM BROM 0.5 MG/2.5ML INH SOL NEB SCH ×3 (14:37→22:29)
[2019-08-06 17:00] VITALS: BP 137/85
[2019-08-06] MEDS ORDERED: SODIUM PHOSPHATES 24 MEQ in SODIUM CHL 0.9% 100 ML IV ONE (17:45)
[2019-08-06] MEDS: RIVAROXABAN 20 MG TAB PO SCH (17:45)
[2019-08-06 22:00] VITALS: BP 111/43
[2019-08-06] MEDS: DIGOXIN 0.125 MG TAB PO SCH (22:34)
[2019-08-06] MEDS: ATORVASTATIN 20 MG TAB PO SCH (22:34)
[2019-08-07] MEDS: guaiFENesin-DM 100/10mg/5ml SYR PO PRN ×5 (00:27→22:07)
[2019-08-07] MEDS: ALBUTEROL SULF 2.5 MG/0.5ML(0.5%) NEB SOLN NEB SCH ×6 (02:34→22:14)
[2019-08-07] MEDS: IPRATROPIUM BROM 0.5 MG/2.5ML INH SOL NEB SCH ×6 (02:34→22:14)
[2019-08-07 04:58] VITALS: BP 113/59
[2019-08-07] MEDS: FUROSEMIDE 40 MG/4 ML VIAL IV SCH ×2 (06:06→18:28)
[2019-08-07] MEDS: LEVOTHYROXINE SODIUM 100 MCG TAB PO SCH (06:07)
[2019-08-07 09:00] VITALS: BP 125/65
[2019-08-07] MEDS: AMIODARONE HCL 200 MG TAB PO SCH (09:54)
[2019-08-07] MEDS: ASPirin-EC 81 mg tab PO SCH (09:55)
[2019-08-07] MEDS: DOXYCYCLINE 100 MG TAB/CAP PO SCH ×2 (09:55→22:08)
[2019-08-07] MEDS: METOPROLOL TARTRATE 25 MG TAB PO SCH ×2 (09:55→22:10)
[2019-08-07] MEDS: CARVEDILOL 3.125 MG TAB PO SCH ×2 (09:55→22:08)
[2019-08-07] MEDS: LISINOPRIL 10 MG TAB PO SCH (09:56)
[2019-08-07] MEDS: BUDESONIDE (INHALATION) 0.5 MG/2 ML NEB NEB SCH ×2 (10:10→18:16)
[2019-08-07] MEDS ORDERED: DOCUSATE SOD 100 MG CAP PO ONE (11:15)
[2019-08-07] MEDS ORDERED: SENNA 8.6 MG TAB PO ONE (11:45)
[2019-08-07] MEDS ORDERED: DOCUSATE SOD 100 MG CAP PO SCH ×2 (12:00→22:00)
[2019-08-07 13:00] VITALS: BP 118/61
[2019-08-07] MEDS: methylPREDNISolone SOD SUCC 40 MG/ML VL IV SCH ×2 (13:46→22:11)
[2019-08-07 15:52] VITALS: BP 118/61
[2019-08-07 17:00] VITALS: BP 126/61
[2019-08-07 22:00] VITALS: BP 116/69
[2019-08-07] MEDS: DIGOXIN 0.125 MG TAB PO SCH (22:09)
[2019-08-07] MEDS: ATORVASTATIN 20 MG TAB PO SCH (22:09)
[2019-08-07] MEDS: DOCUSATE SOD 100 MG CAP PO SCH (22:10)
[2019-08-08] MEDS: SODIUM CHLORIDE 0.9% 500 ML IV SCH ×2 (00:01→10:01)
[2019-08-08] MEDS: ALBUTEROL SULF 2.5 MG/0.5ML(0.5%) NEB SOLN NEB SCH ×4 (02:00→14:28)
[2019-08-08] MEDS: IPRATROPIUM BROM 0.5 MG/2.5ML INH SOL NEB SCH ×4 (02:00→14:28)
[2019-08-08 05:00] VITALS: BP 128/54
[2019-08-08] MEDS: LEVOTHYROXINE SODIUM 100 MCG TAB PO SCH (06:46)
[2019-08-08] MEDS: BUDESONIDE (INHALATION) 0.5 MG/2 ML NEB NEB SCH (06:46)
[2019-08-08] MEDS: FUROSEMIDE 40 MG/4 ML VIAL IV SCH (06:46)
[2019-08-08 07:08] LABS: Basophils # (auto) 0 10 ^3/uL (0-0.2); Basophils % (auto) 0.1 % (0.0-2.0); Eosinophils # (auto) 0 10 ^3/uL (0-0.8); Eosinophils % (auto) 0.1 % (0.0-7.0); Hemoglobin 13.1 g/dL (13.5-17.5); Lymphocytes # (auto) 0.6 10 ^3/uL (0.4-5.4); Lymphocytes % (auto) 6.6 % (10.0-50.0); Mean Corpuscular Hemoglobin 31.9 pg (28.0-32.0); Mean Corpuscular Hgb Conc. 33.7 g/dL (32.0-36.0); Mean Corpuscular Volume 94.6 fL (80.0-100.0); Monocytes # (auto) 0.3 10 ^3/uL (0-1.3); Neutrophils # (auto) 7.4 10 ^3/uL (1.6-8.6); Neutrophils % (auto) 89.2 % (37.0-80.0); Platelet Count (auto) 262 10^3/uL (140-450); Red Blood Cells 4.12 10^6/uL (4.5-5.90); Red Cell Distribution Width 14.9 % (11.8-14.3); White Blood Cell 8.3 10^3/uL (4.4-10.8)
[2019-08-08 07:17] LABS: INR 1.07 (0.9-1.15); Partial Thromboplastin Time 23.2 sec (23.64-32.05)
[2019-08-08 07:28] LABS: Calcium 8.2 mg/dL (8.5-10.1)
[2019-08-08 07:29] LABS: BUN/Creatinine Ratio 36.3
[2019-08-08 09:00] VITALS: BP 115/68
[2019-08-08] MEDS: methylPREDNISolone SOD SUCC 40 MG/ML VL IV SCH (10:00)
[2019-08-08] MEDS: METOPROLOL TARTRATE 25 MG TAB PO SCH (10:00)
[2019-08-08] MEDS: ASPirin-EC 81 mg tab PO SCH (10:00)
[2019-08-08] MEDS: DOCUSATE SOD 100 MG CAP PO SCH (10:00)
[2019-08-08] MEDS: DOXYCYCLINE 100 MG TAB/CAP PO SCH (10:00)
[2019-08-08] MEDS: CARVEDILOL 3.125 MG TAB PO SCH (10:00)
[2019-08-08] MEDS: AMIODARONE HCL 200 MG TAB PO SCH (10:00)
[2019-08-08] MEDS: LISINOPRIL 10 MG TAB PO SCH (10:00)
[2019-08-08] MEDS ORDERED: IOHEXOL 350 MG/ML 100ML IJ ONE ×2 (12:07→12:20)
[2019-08-08] MEDS ORDERED: LIDOCAINE 2%HCL (LOCAL ANESTH.) INJ 20ML MDV ONE (12:07)
[2019-08-08] MEDS ORDERED: SODIUM CHL 0.9% 0 ML ONE (12:20)
[2019-08-08] MEDS ORDERED: ANGIOMAX 250 MG VIAL IV ONE (12:20)
[2019-08-08] MEDS ORDERED: fentaNYL CITRATE 100 MCG/2 ML VL ONE (12:20)
[2019-08-08] MEDS ORDERED: MIDAZOLAM HCL 1MG/1ML-2 ML VIAL ONE (12:20)
[2019-08-08] MEDS ORDERED: VERAPAMIL 2.5MG/ML INJ 2ML VIAL IV ONE (12:20)
[2019-08-08] MEDS ORDERED: HEPARIN SODIUM (PORCINE) 5000 UNITS/ML 1ML VIAL ONE (12:20)
[2019-08-08 17:00] VITALS: BP 104/51
[2019-08-08 17:36] VITALS: BP 128/54
[2019-08-08] MEDS ORDERED: SENNA 8.6 MG TAB PO SCH (22:00)
[2019-08-09] MEDS ORDERED: RIVAROXABAN 20 MG TAB PO SCH (18:00)
== END 2019-08-08 18:30 | disposition home or self-care (01) | DRG 286 ==
LOC: EDBD 16:28 → ER 16:28 → EDUNIT# 16:28 → TELE 16:29 → TELE-WESTW 08-05 02:45
PROVIDERS: ADMIT Hospitalist; ATTEND Internal Medicine
PROC: 4A023N7 Measurement of Cardiac Sampling and Pressure, Left Heart, Percutaneous Approach (ICD-10-PCS; principal; 2019-08-08)
PROC: B2111ZZ Fluoroscopy of Multiple Coronary Arteries using Low Osmolar Contrast (ICD-10-PCS; 2019-08-08)
PROC: B2151ZZ Fluoroscopy of Left Heart using Low Osmolar Contrast (ICD-10-PCS; 2019-08-08)
DX: I11.0 Hypertensive heart disease with heart failure (principal); J96.01 Acute respiratory failure with hypoxia; J44.1 Chronic obstructive pulmonary disease with (acute) exacerbation; E44.0 Moderate protein-calorie malnutrition; J98.11 Atelectasis; I74.9 Embolism and thrombosis of unspecified artery; I50.23 Acute on chronic systolic (congestive) heart failure; I25.10 Atherosclerotic heart disease of native coronary artery without angina pectoris; I25.5 Ischemic cardiomyopathy; E83.42 Hypomagnesemia; I48.0 Paroxysmal atrial fibrillation; I25.9 Chronic ischemic heart disease, unspecified; E66.9 Obesity, unspecified; E03.9 Hypothyroidism, unspecified; E11.9 Type 2 diabetes mellitus without complications; E78.00 Pure hypercholesterolemia, unspecified; E78.5 Hyperlipidemia, unspecified; F17.200 Nicotine dependence, unspecified, uncomplicated; F41.9 Anxiety disorder, unspecified; Z68.30 Body mass index [BMI] 30.0-30.9, adult; Z95.5 Presence of coronary angioplasty implant and graft; Z79.01 Long term (current) use of anticoagulants; Z79.82 Long term (current) use of aspirin; Z82.49 Family history of ischemic heart disease and other diseases of the circulatory system; Z83.3 Family history of diabetes mellitus; Z86.711 Personal history of pulmonary embolism; Z95.1 Presence of aortocoronary bypass graft
CPT/HCPCS: 36415; 71045; 71250; 78452; 80048; 80053; 80061; 81001; 83036; 83605; 83735; 83880; 84100; 84484; 85025; 85610; 85730; 87040; 93005; 93017; 93306; 93458; 93975; 94640; 96374; 99291; G0378; J0153; J2250

== ENCOUNTER → 2020-09-14 | Outpatient (CLI) | payer BC, MEDICAID ==
[~2020-09-14] MED LIST changes: +ALBU0.084 NEB; +AMIO200T33 PO; -ASPI-404 PO; +ASPI-543 PO; -ATOR10TA52 PO; +ATOR40TA52 PO; +BUDE1AER4 IN; -CARV3.1240 PO; -DIGO0.12 PO; +HYDR12.56 PO; +LEVO100T8 PO; -POM PO; +RIVA20TA PO
== END | disposition home or self-care (01) ==
LOC: LAB 10:40
PROVIDERS: ATTEND Internal Medicine Pulmonary Disease
DX: Z01.812 Encounter for preprocedural laboratory examination (principal); Z20.822 Contact with and (suspected) exposure to COVID-19
CPT/HCPCS: 36415; 87426

== ENCOUNTER → 2021-12-27 | Outpatient (CLI) | payer BC, MEDICAID | END | disposition home or self-care (01) | LOC: XYW 14:36 | PROVIDERS: ATTEND Nurse Practitioner Acute Care | DX: Z01.810 Encounter for preprocedural cardiovascular examination (principal); I08.2 Rheumatic disorders of both aortic and tricuspid valves | CPT/HCPCS: 93306 ==

== ENCOUNTER 2022-02-28 02:42 | Inpatient (IN) | payer BC ==
[~2022-02-28] VITALS: Ht 188 cm; Wt 94.2 kg
[2022-02-28] MEDS ORDERED: ALBUTEROL SULF 2.5 MG/0.5ML(0.5%) NEB SOLN NEB ONE ×3 (03:00→07:45)
[2022-02-28] MEDS ORDERED: IPRATROPIUM BROM 0.5 MG/2.5ML INH SOL NEB ONE ×2 (03:00→07:45)
[2022-02-28 03:15] LABS: Basophils # (auto) 0.1 10 ^3/uL (0-0.2); Basophils % (auto) 0.6 % (0.0-2.0); Eosinophils # (auto) 0.2 10 ^3/uL (0-0.8); Eosinophils % (auto) 2.4 % (0.0-7.0); Hemoglobin 10.3 g/dL (13.5-17.5); Lymphocytes # (auto) 0.8 10 ^3/uL (0.4-5.4); Lymphocytes % (auto) 8.6 % (10.0-50.0); Mean Corpuscular Hemoglobin 29.8 pg (28.0-32.0); Mean Corpuscular Hgb Conc. 33.3 g/dL (32.0-36.0); Mean Corpuscular Volume 89.4 fL (80.0-100.0); Monocytes # (auto) 0.8 10 ^3/uL (0-1.3); Monocytes % (auto) 8.2 % (0.0-12.0); Neutrophils # (auto) 7.9 10 ^3/uL (1.6-8.6); Neutrophils % (auto) 80.2 % (37.0-80.0); Nucleated Red Blood Cells % 0.1 %; Red Blood Cells 3.46 10^6/uL (4.5-5.90); Red Cell Distribution Width 15.6 % (11.8-14.3); White Blood Cell 9.8 10^3/uL (4.4-10.8)
[2022-02-28 03:28] LABS: INR 2.83 (0.9-1.15); Partial Thromboplastin Time 37.9 sec (24.6-33.4)
[2022-02-28 03:34] LABS: Potassium 3.1 mmol/L (3.5-5.1); Sodium 135 mmol/L (136-145)
[2022-02-28 03:35] LABS: Alanine Aminotransferase 32 U/L (16-61); Albumin 2.6 g/dL (3.4-5.0); Alkaline Phosphatase 76 U/L (45-117); Anion Gap 13 (5-15); Aspartate Aminotransferase 41 U/L (15-37); BUN/Creatinine Ratio 14.6; Bilirubin, Total 0.5 mg/dL (0.2-1.0); Blood Urea Nitrogen 31 mg/dL (7-18); Calcium 8.1 mg/dL (8.5-10.1); Carbon Dioxide 17 mmol/L (21-32); Chloride 105 mmol/L (98-107); GFR African American 40 mL/min; GFR Non-African American 33 mL/min; Glucose 133 mg/dL (74-106); Magnesium 1.6 mg/dL (1.6-2.6); Total Protein 8.2 g/dL (6.4-8.2)
[2022-02-28] MEDS ORDERED: MAGNESIUM SULFATE 1GM/100ML 100 ML IV ONE (04:00)
[2022-02-28] MEDS ORDERED: POTASSIUM EFFERVESENT TAB 25 MEQ PO ONE ×2 (04:00→13:15)
[2022-02-28 06:59] LABS: Urine Bacteria NONE SEEN /hpf (None Seen); Urine Blood Negative /uL (Negative); Urine Hyaline Cast FEW /lpf (0 - 2); Urine WBC 2 /hpf (0 - 3)
[2022-02-28] MEDS ORDERED: methylPREDNISolone SOD SUCC 125 MG/2 ML VL IV ONE (07:45)
[2022-02-28] MEDS ORDERED: NITROGLYCERIN 0.4 MG SL TAB SL PRN (10:30)
[2022-02-28] MEDS ORDERED: cefTRIAXone 1GM/50ML D5W 50 ML IV ONE (10:30)
[2022-02-28] MEDS ORDERED: SODIUM CHLORIDE 0.9% 1,000 ML IV ONE ×2 (10:30)
[2022-02-28] MEDS ORDERED: AZITHROMYCIN 500MG/ 250ML 250 ML IV ONE (10:30)
[2022-02-28] MEDS ORDERED: IPRATROPIUM BROM 0.5 MG/2.5ML INH SOL NEB PRN (11:00)
[2022-02-28] MEDS ORDERED: ALBUTEROL SULF 2.5 MG/0.5ML(0.5%) NEB SOLN NEB PRN (11:00)
[2022-02-28] MEDS: METOPROLOL TARTRATE 25 MG TAB PO SCH ×2 (11:08→23:56)
[2022-02-28] MEDS: ASPirin-EC 81 mg tab PO SCH (11:09)
[2022-02-28 11:10] VITALS: BP 107/71
[2022-02-28 11:16] LABS: Magnesium 1.9 mg/dL (1.6-2.6); Potassium 3.3 mmol/L (3.5-5.1)
[2022-02-28 11:19] LABS: Lactic Acid w/Reflex 3.3 mmol/L (0.4-2.0)
[2022-02-28] MEDS: ALBUTEROL SULF 2.5 MG/0.5ML(0.5%) NEB SOLN NEB SCH ×2 (11:34→19:33)
[2022-02-28] MEDS: IPRATROPIUM BROM 0.5 MG/2.5ML INH SOL NEB SCH ×2 (11:34→19:33)
[2022-02-28] MEDS ORDERED: guaiFENesin-DM 100/10mg/5ml SYR PO ONE (12:15)
[2022-02-28] MEDS ORDERED: AMIODARONE HCL 150 MG in D5W 5% 100 ML IV ONE (13:15)
[2022-02-28] MEDS ORDERED: DIGOXIN (250MCG/ML) 2 ML AMPULE IV ONE (13:15)
[2022-02-28] MEDS ORDERED: MAGNESIUM OXIDE 400 MG TAB PO ONE (13:15)
[2022-02-28] MEDS ORDERED: AMIODARONE 450mg/250ml AE 250 ML IV SCH (13:30)
[2022-02-28] MEDS: MORPHINE SULFATE INJ 2 MG/ml SYRG IV PRN ×2 (14:57→20:32)
[2022-02-28] MEDS ORDERED: WARFARIN SODIUM 2 MG TAB PO ONE (17:00)
[2022-02-28] MEDS: guaiFENesin-DM 100/10mg/5ml SYR PO PRN ×2 (17:08→20:33)
[2022-02-28] MEDS: AMIODARONE 450mg/250ml AE 250 ML IV SCH (20:30)
[2022-02-28] MEDS: methylPREDNISolone SOD SUCC 125 MG/2 ML VL IV SCH (21:48)
[2022-02-28] MEDS ORDERED: PATIENTS OWN MEDICATION (Atorvastatin Calcium 1 TAB) PO SCH (22:00)
[2022-02-28] MEDS: ATORVASTATIN 20 MG TAB PO SCH (23:55)
[2022-03-01 00:30] LABS: Urine Bacteria FEW /hpf (None Seen); Urine Blood TRACE /uL (Negative); Urine Mucus FEW (None Seen); Urine Specific Gravity 1.009 (1.001-1.035); Urine WBC 1 /hpf (0 - 3)
[2022-03-01] MEDS: AMIODARONE 450mg/250ml AE 250 ML IV SCH (00:40)
[2022-03-01] MEDS: guaiFENesin-DM 100/10mg/5ml SYR PO PRN ×3 (03:42→22:23)
[2022-03-01 04:12] LABS: Basophils # (auto) 0 10 ^3/uL (0-0.2); Basophils % (auto) 0.2 % (0.0-2.0); Eosinophils # (auto) 0 10 ^3/uL (0-0.8); Hematocrit 27.2 % (41.0-53.0); Lymphocytes # (auto) 0.8 10 ^3/uL (0.4-5.4); Lymphocytes % (auto) 5.6 % (10.0-50.0); Mean Corpuscular Hemoglobin 29.8 pg (28.0-32.0); Mean Corpuscular Hgb Conc. 33.2 g/dL (32.0-36.0); Mean Corpuscular Volume 89.9 fL (80.0-100.0); Monocytes # (auto) 0.8 10 ^3/uL (0-1.3); Monocytes % (auto) 5.7 % (0.0-12.0); Neutrophils % (auto) 88.5 % (37.0-80.0); Red Blood Cells 3.03 10^6/uL (4.5-5.90); Red Cell Distribution Width 15.4 % (11.8-14.3); White Blood Cell 14.7 10^3/uL (4.4-10.8)
[2022-03-01 04:29] LABS: Albumin 2.4 g/dL (3.4-5.0); Calcium 8.5 mg/dL (8.5-10.1); INR 3.61 (0.9-1.15); Potassium 4.3 mmol/L (3.5-5.1)
[2022-03-01 04:33] LABS: BUN/Creatinine Ratio 18.5; Bilirubin, Total 0.4 mg/dL (0.2-1.0); Total Protein 8.3 g/dL (6.4-8.2)
[2022-03-01] MEDS: LEVOTHYROXINE SODIUM 100 MCG TAB PO SCH (06:56)
[2022-03-01] MEDS ORDERED: AZITHROMYCIN 500MG/ 250ML 250 ML IV SCH (10:00)
[2022-03-01] MEDS ORDERED: ENOXAPARIN SOD 40 MG/0.4 ML SYRINGE SC SCH (10:00)
[2022-03-01] MEDS: cefTRIAXone 1GM/50ML D5W 50 ML IV SCH (11:33)
[2022-03-01] MEDS: methylPREDNISolone SOD SUCC 125 MG/2 ML VL IV SCH ×2 (11:37→22:30)
[2022-03-01] MEDS: ASPirin-EC 81 mg tab PO SCH (11:38)
[2022-03-01] MEDS: HCTZ 25 MG TAB PO SCH (11:39)
[2022-03-01] MEDS: DIGOXIN 0.125 MG TAB PO SCH (11:39)
[2022-03-01] MEDS: METOPROLOL TARTRATE 25 MG TAB PO SCH ×2 (11:41→22:29)
[2022-03-01] MEDS ORDERED: IOHEXOL 300 MG/ML 100ML BOTTLE IJ ONE (11:54)
[2022-03-01] MEDS: IPRATROPIUM BROM 0.5 MG/2.5ML INH SOL NEB SCH ×3 (12:00→19:07)
[2022-03-01] MEDS: ALBUTEROL SULF 2.5 MG/0.5ML(0.5%) NEB SOLN NEB SCH ×3 (12:00→19:07)
[2022-03-01 13:23] LABS: Basophils # (auto) 0 10 ^3/uL (0-0.2); Basophils % (auto) 0.2 % (0.0-2.0); Eosinophils # (auto) 0 10 ^3/uL (0-0.8); Hematocrit 28.4 % (41.0-53.0); Hemoglobin 9.3 g/dL (13.5-17.5); Lymphocytes % (auto) 5.4 % (10.0-50.0); Mean Corpuscular Hemoglobin 29.5 pg (28.0-32.0); Mean Corpuscular Hgb Conc. 32.8 g/dL (32.0-36.0); Mean Corpuscular Volume 89.8 fL (80.0-100.0); Monocytes # (auto) 1.3 10 ^3/uL (0-1.3); Monocytes % (auto) 7.6 % (0.0-12.0); Neutrophils # (auto) 15.3 10 ^3/uL (1.6-8.6); Neutrophils % (auto) 86.8 % (37.0-80.0); Nucleated Red Blood Cells % 0.1 %; Red Blood Cells 3.16 10^6/uL (4.5-5.90); Red Cell Distribution Width 15.6 % (11.8-14.3); White Blood Cell 17.6 10^3/uL (4.4-10.8)
[2022-03-01 13:38] LABS: BUN/Creatinine Ratio 19.7; Calcium 8.8 mg/dL (8.5-10.1); Potassium 3.9 mmol/L (3.5-5.1)
[2022-03-01 21:58] VITALS: BP 122/53
[2022-03-01] MEDS: DOXYCYCLINE 100 MG TAB/CAP PO SCH (22:23)
[2022-03-01] MEDS: ATORVASTATIN 20 MG TAB PO SCH (22:24)
[2022-03-02] MEDS: AMIODARONE 450mg/250ml AE 250 ML IV SCH ×2 (01:30→10:33)
[2022-03-02] MEDS: guaiFENesin-DM 100/10mg/5ml SYR PO PRN ×4 (02:59→22:01)
[2022-03-02 05:00] VITALS: BP 105/48
[2022-03-02 05:52] LABS: INR 3.67 (0.9-1.15); Partial Thromboplastin Time 36.7 sec (24.6-33.4)
[2022-03-02] MEDS: LEVOTHYROXINE SODIUM 100 MCG TAB PO SCH (06:07)
[2022-03-02] MEDS: ALBUTEROL SULF 2.5 MG/0.5ML(0.5%) NEB SOLN NEB SCH ×3 (07:15→18:53)
[2022-03-02] MEDS: IPRATROPIUM BROM 0.5 MG/2.5ML INH SOL NEB SCH ×3 (07:16→18:54)
[2022-03-02 09:00] VITALS: BP 120/57
[2022-03-02] MEDS: cefTRIAXone 1GM/50ML D5W 50 ML IV SCH (09:14)
[2022-03-02] MEDS: DOXYCYCLINE 100 MG TAB/CAP PO SCH ×2 (10:00→21:58)
[2022-03-02] MEDS: DIGOXIN 0.125 MG TAB PO SCH (10:00)
[2022-03-02] MEDS: METOPROLOL TARTRATE 25 MG TAB PO SCH ×2 (10:01→21:57)
[2022-03-02] MEDS: HCTZ 25 MG TAB PO SCH (10:01)
[2022-03-02] MEDS: methylPREDNISolone SOD SUCC 125 MG/2 ML VL IV SCH ×2 (10:02→21:56)
[2022-03-02] MEDS: ASPirin-EC 81 mg tab PO SCH (10:32)
[2022-03-02] MEDS ORDERED: AMIODARONE HCL 200 MG TAB PO ONE (11:45)
[2022-03-02] MEDS ORDERED: FURO40TA4 PO (12:08)
[2022-03-02] MEDS ORDERED: WARF2.5T39 PO (12:08)
[2022-03-02] MEDS ORDERED: FLUT1AER7 IN (12:08)
[2022-03-02] MEDS ORDERED: PNEUMOCOCCAL VACC POLYS 25 MCG/0.5 ML VIAL IM ONE (12:15)
[2022-03-02 13:00] VITALS: BP 127/63
[2022-03-02 17:00] VITALS: BP 128/73
[2022-03-02] MEDS: MORPHINE SULFATE INJ 2 MG/ml SYRG IV PRN (18:33)
[2022-03-02] MEDS: OXYMETAZOLINE NASAL SPRAY EACHNOSTRI SCH (21:56)
[2022-03-02] MEDS: ATORVASTATIN 20 MG TAB PO SCH (21:57)
[2022-03-02] MEDS: AMIODARONE HCL 200 MG TAB PO SCH (21:57)
[2022-03-02 22:00] VITALS: BP 146/68
[2022-03-03] MEDS: MORPHINE SULFATE INJ 2 MG/ml SYRG IV PRN ×5 (01:27→19:11)
[2022-03-03 05:00] VITALS: BP 94/41
[2022-03-03 05:54] LABS: INR 3.45 (0.9-1.15)
[2022-03-03] MEDS: ALBUTEROL SULF 2.5 MG/0.5ML(0.5%) NEB SOLN NEB SCH ×4 (06:00→18:05)
[2022-03-03] MEDS: IPRATROPIUM BROM 0.5 MG/2.5ML INH SOL NEB SCH ×4 (06:00→18:05)
[2022-03-03] MEDS: LEVOTHYROXINE SODIUM 100 MCG TAB PO SCH (06:57)
[2022-03-03] MEDS: guaiFENesin-DM 100/10mg/5ml SYR PO PRN ×5 (07:05→23:13)
[2022-03-03 07:07] VITALS: BP 133/65
[2022-03-03 09:30] VITALS: BP 122/66
[2022-03-03] MEDS: methylPREDNISolone SOD SUCC 125 MG/2 ML VL IV SCH ×2 (09:38→21:43)
[2022-03-03] MEDS: cefTRIAXone 1GM/50ML D5W 50 ML IV SCH (09:39)
[2022-03-03] MEDS: DOXYCYCLINE 100 MG TAB/CAP PO SCH ×2 (09:40→21:44)
[2022-03-03] MEDS: AMIODARONE HCL 200 MG TAB PO SCH ×2 (09:40→21:43)
[2022-03-03] MEDS: METOPROLOL TARTRATE 25 MG TAB PO SCH ×2 (09:41→21:44)
[2022-03-03] MEDS: DIGOXIN 0.125 MG TAB PO SCH (09:41)
[2022-03-03] MEDS: OXYMETAZOLINE NASAL SPRAY EACHNOSTRI SCH ×2 (09:42→21:42)
[2022-03-03] MEDS: HCTZ 25 MG TAB PO SCH (09:43)
[2022-03-03] MEDS: ASPirin-EC 81 mg tab PO SCH (09:46)
[2022-03-03 16:27] VITALS: BP 149/55
[2022-03-03 17:40] VITALS: BP 139/64
[2022-03-03] MEDS: ATORVASTATIN 20 MG TAB PO SCH (21:43)
[2022-03-03 21:58] VITALS: BP 125/72
[2022-03-03] MEDS ORDERED: METOPROLOL TARTRATE 25 MG TAB PO ONE (22:35)
[2022-03-04] MEDS ORDERED: ACETAMINOPHEN 325 MG TAB PO PRN (00:17)
[2022-03-04] MEDS: MORPHINE SULFATE INJ 2 MG/ml SYRG IV PRN ×7 (01:58→23:42)
[2022-03-04 05:00] VITALS: BP 100/62
[2022-03-04] MEDS: guaiFENesin-DM 100/10mg/5ml SYR PO PRN ×5 (06:13→23:44)
[2022-03-04] MEDS: LEVOTHYROXINE SODIUM 100 MCG TAB PO SCH (06:13)
[2022-03-04 06:55] LABS: Basophils # (auto) 0 10 ^3/uL (0-0.2); Basophils % (auto) 0.1 % (0.0-2.0); Eosinophils # (auto) 0 10 ^3/uL (0-0.8); Hematocrit 27.4 % (41.0-53.0); Hemoglobin 9.3 g/dL (13.5-17.5); Lymphocytes # (auto) 1.2 10 ^3/uL (0.4-5.4); Lymphocytes % (auto) 5.8 % (10.0-50.0); Mean Corpuscular Hemoglobin 29.9 pg (28.0-32.0); Mean Corpuscular Hgb Conc. 33.9 g/dL (32.0-36.0); Mean Corpuscular Volume 88.4 fL (80.0-100.0); Monocytes # (auto) 1.9 10 ^3/uL (0-1.3); Neutrophils # (auto) 18.3 10 ^3/uL (1.6-8.6); Neutrophils % (auto) 85.1 % (37.0-80.0); Nucleated Red Blood Cells % 0.1 %; Red Cell Distribution Width 15.3 % (11.8-14.3); White Blood Cell 21.5 10^3/uL (4.4-10.8)
[2022-03-04 07:04] LABS: INR 2.14 (0.9-1.15); Partial Thromboplastin Time 30.8 sec (24.6-33.4)
[2022-03-04 07:05] LABS: Calcium 8.6 mg/dL (8.5-10.1); Potassium 4.7 mmol/L (3.5-5.1)
[2022-03-04] MEDS: IPRATROPIUM BROM 0.5 MG/2.5ML INH SOL NEB SCH ×3 (07:11→19:12)
[2022-03-04] MEDS: ALBUTEROL SULF 2.5 MG/0.5ML(0.5%) NEB SOLN NEB SCH ×3 (07:11→19:12)
[2022-03-04 08:00] VITALS: BP 118/60
[2022-03-04 09:00] VITALS: BP 118/60
[2022-03-04] MEDS: methylPREDNISolone SOD SUCC 125 MG/2 ML VL IV SCH ×2 (09:42→21:12)
[2022-03-04] MEDS: cefTRIAXone 1GM/50ML D5W 50 ML IV SCH (09:42)
[2022-03-04] MEDS: METOPROLOL TARTRATE 50 MG TAB PO SCH ×2 (09:43→21:13)
[2022-03-04] MEDS: DOXYCYCLINE 100 MG TAB/CAP PO SCH ×2 (09:43→21:14)
[2022-03-04] MEDS: ASPirin-EC 81 mg tab PO SCH (09:44)
[2022-03-04] MEDS: DIGOXIN 0.125 MG TAB PO SCH (09:44)
[2022-03-04] MEDS: HCTZ 25 MG TAB PO SCH (09:44)
[2022-03-04] MEDS: AMIODARONE HCL 200 MG TAB PO SCH ×2 (10:28→21:13)
[2022-03-04 13:30] VITALS: BP 121/66
[2022-03-04] MEDS: OXYMETAZOLINE NASAL SPRAY EACHNOSTRI SCH ×2 (13:39→21:12)
[2022-03-04 16:00] VITALS: BP 119/65
[2022-03-04] MEDS ORDERED: WARFARIN SODIUM 2 MG TAB PO ONE (17:00)
[2022-03-04] MEDS: MEROPENEM 1GM IVPB 100 ML IV SCH (20:25)
[2022-03-04] MEDS: ATORVASTATIN 20 MG TAB PO SCH (21:13)
[2022-03-04 22:00] VITALS: BP 110/62
[2022-03-05] MEDS: MEROPENEM 1GM IVPB 100 ML IV SCH ×3 (03:41→22:23)
[2022-03-05 05:00] VITALS: BP 100/48
[2022-03-05] MEDS: guaiFENesin-DM 100/10mg/5ml SYR PO PRN ×5 (06:03→22:41)
[2022-03-05] MEDS: LEVOTHYROXINE SODIUM 100 MCG TAB PO SCH (06:13)
[2022-03-05] MEDS: MORPHINE SULFATE INJ 2 MG/ml SYRG IV PRN ×5 (06:14→22:42)
[2022-03-05 06:49] LABS: Hematocrit 30.3 % (41.0-53.0); Hemoglobin 10.2 g/dL (13.5-17.5); Mean Corpuscular Hemoglobin 29.8 pg (28.0-32.0); Mean Corpuscular Hgb Conc. 33.6 g/dL (32.0-36.0); Mean Corpuscular Volume 88.6 fL (80.0-100.0); Red Blood Cells 3.42 10^6/uL (4.5-5.90); Red Cell Distribution Width 15.3 % (11.8-14.3); White Blood Cell 22.8 10^3/uL (4.4-10.8)
[2022-03-05 06:52] LABS: Basophils % (manual) 0 (0.0-2.0); Blast Cells 0; Eosinophils % (manual) 0 (0-7); Promyelocytes % 0; Reactive Lymphocytes 0
[2022-03-05] MEDS: IPRATROPIUM BROM 0.5 MG/2.5ML INH SOL NEB SCH ×3 (06:56→18:13)
[2022-03-05] MEDS: ALBUTEROL SULF 2.5 MG/0.5ML(0.5%) NEB SOLN NEB SCH ×3 (06:56→18:13)
[2022-03-05 07:00] LABS: INR 1.91 (0.9-1.15); Partial Thromboplastin Time 28.7 sec (24.6-33.4)
[2022-03-05 07:17] LABS: Potassium 4.5 mmol/L (3.5-5.1)
[2022-03-05 07:31] LABS: BUN/Creatinine Ratio 28.9; Bilirubin, Total 0.5 mg/dL (0.2-1.0); Calcium 8.8 mg/dL (8.5-10.1); Total Protein 7.5 g/dL (6.4-8.2)
[2022-03-05 08:58] VITALS: BP 117/62
[2022-03-05 08:59] LABS: Band Neutrophils % (manual) 4; Lymphocytes % (manual) 10 (10.0-50.0); Metamyelocytes % 1; Monocytes % (manual) 6 (0-12); Myelocytes % 4
[2022-03-05] MEDS ORDERED: PNEUMOCOCCAL VACC POLYS 25 MCG/0.5 ML VIAL IM ONE (10:00)
[2022-03-05] MEDS: DOXYCYCLINE 100 MG TAB/CAP PO SCH ×2 (10:23→22:27)
[2022-03-05] MEDS: methylPREDNISolone SOD SUCC 125 MG/2 ML VL IV SCH ×2 (10:23→22:25)
[2022-03-05] MEDS: AMIODARONE HCL 200 MG TAB PO SCH ×2 (10:23→22:26)
[2022-03-05] MEDS: DIGOXIN 0.125 MG TAB PO SCH (10:23)
[2022-03-05] MEDS: METOPROLOL TARTRATE 50 MG TAB PO SCH ×2 (10:24→22:27)
[2022-03-05] MEDS: HCTZ 25 MG TAB PO SCH (10:25)
[2022-03-05] MEDS: ASPirin-EC 81 mg tab PO SCH (10:43)
[2022-03-05] MEDS ORDERED: POLYETHYLENE GLYCOL 17 GM PWDR PO ONE (11:00)
[2022-03-05] MEDS: DOCUSATE SOD 100 MG CAP PO SCH ×2 (11:38→22:25)
[2022-03-05 13:00] VITALS: BP 129/69
[2022-03-05 17:00] VITALS: BP 116/66
[2022-03-05] MEDS ORDERED: WARFARIN SODIUM 1 MG TAB PO ONE (17:00)
[2022-03-05] MEDS ORDERED: ALBUTEROL MEDNEB 2.5 mg/3ml NEB ONE (18:04)
[2022-03-05 22:00] VITALS: BP 107/48
[2022-03-05] MEDS: ATORVASTATIN 20 MG TAB PO SCH (22:26)
[2022-03-05] MEDS: POLYETHYLENE GLYCOL 17 GM PWDR PO SCH (22:27)
[2022-03-06] MEDS: MORPHINE SULFATE INJ 2 MG/ml SYRG IV PRN ×5 (02:54→23:24)
[2022-03-06] MEDS: guaiFENesin-DM 100/10mg/5ml SYR PO PRN ×4 (02:55→23:19)
[2022-03-06] MEDS: OXYMETAZOLINE NASAL SPRAY EACHNOSTRI SCH ×3 (03:01→23:14)
[2022-03-06] MEDS: MEROPENEM 1GM IVPB 100 ML IV SCH ×3 (04:41→20:35)
[2022-03-06 05:00] VITALS: BP 118/60
[2022-03-06] MEDS: IPRATROPIUM BROM 0.5 MG/2.5ML INH SOL NEB SCH ×3 (05:43→19:10)
[2022-03-06] MEDS: ALBUTEROL SULF 2.5 MG/0.5ML(0.5%) NEB SOLN NEB SCH ×3 (05:43→19:10)
[2022-03-06] MEDS ORDERED: ALBUTEROL MEDNEB 2.5 mg/3ml NEB ONE ×3 (06:03→17:58)
[2022-03-06] MEDS: LEVOTHYROXINE SODIUM 100 MCG TAB PO SCH (06:04)
[2022-03-06 06:21] LABS: INR 1.85 (0.9-1.15); Partial Thromboplastin Time 28.2 sec (24.6-33.4)
[2022-03-06 06:22] LABS: Hematocrit 31.6 % (41.0-53.0); Hemoglobin 10.3 g/dL (13.5-17.5); Mean Corpuscular Hemoglobin 29.2 pg (28.0-32.0); Mean Corpuscular Hgb Conc. 32.6 g/dL (32.0-36.0); Mean Corpuscular Volume 89.6 fL (80.0-100.0); Red Blood Cells 3.53 10^6/uL (4.5-5.90); Red Cell Distribution Width 15.1 % (11.8-14.3); White Blood Cell 20.7 10^3/uL (4.4-10.8)
[2022-03-06 06:27] LABS: Potassium 4.9 mmol/L (3.5-5.1)
[2022-03-06 06:35] LABS: BUN/Creatinine Ratio 31.7; Bilirubin, Total 0.5 mg/dL (0.2-1.0); Calcium 8.6 mg/dL (8.5-10.1)
[2022-03-06 06:54] LABS: Basophils % (manual) 0 (0.0-2.0); Blast Cells 0; Eosinophils % (manual) 0 (0-7); Metamyelocytes % 0; Promyelocytes % 0; Reactive Lymphocytes 0
[2022-03-06 08:40] VITALS: BP 120/59
[2022-03-06] MEDS: methylPREDNISolone SOD SUCC 125 MG/2 ML VL IV SCH ×2 (09:03→23:14)
[2022-03-06] MEDS: AMIODARONE HCL 200 MG TAB PO SCH ×2 (09:03→23:15)
[2022-03-06] MEDS: DOCUSATE SOD 100 MG CAP PO SCH ×2 (09:03→22:00)
[2022-03-06] MEDS: POLYETHYLENE GLYCOL 17 GM PWDR PO SCH ×2 (09:04→22:00)
[2022-03-06] MEDS: DOXYCYCLINE 100 MG TAB/CAP PO SCH (09:04)
[2022-03-06] MEDS: METOPROLOL TARTRATE 50 MG TAB PO SCH ×2 (09:04→23:16)
[2022-03-06] MEDS: DIGOXIN 0.125 MG TAB PO SCH (09:04)
[2022-03-06] MEDS: HCTZ 25 MG TAB PO SCH (09:05)
[2022-03-06 09:30] LABS: Band Neutrophils % (manual) 12; Lymphocytes % (manual) 6 (10.0-50.0); Monocytes % (manual) 2 (0-12); Myelocytes % 1
[2022-03-06] MEDS: ASPirin-EC 81 mg tab PO SCH (10:00)
[2022-03-06 13:29] VITALS: BP 124/68
[2022-03-06] MEDS ORDERED: WARFARIN SODIUM 5 MG TAB PO ONE (17:00)
[2022-03-06 17:19] VITALS: BP 154/61
[2022-03-06 22:00] VITALS: BP 112/75
[2022-03-06] MEDS: ATORVASTATIN 20 MG TAB PO SCH (23:15)
[2022-03-07] MEDS: MEROPENEM 1GM IVPB 100 ML IV SCH ×2 (04:21→11:51)
[2022-03-07] MEDS: guaiFENesin-DM 100/10mg/5ml SYR PO PRN ×2 (04:25→10:45)
[2022-03-07 05:00] VITALS: BP 111/52
[2022-03-07 05:42] LABS: Basophils # (auto) 0.1 10 ^3/uL (0-0.2); Basophils % (auto) 0.6 % (0.0-2.0); Eosinophils # (auto) 0 10 ^3/uL (0-0.8); Eosinophils % (auto) 0.1 % (0.0-7.0); Hematocrit 31.3 % (41.0-53.0); Hemoglobin 10.4 g/dL (13.5-17.5); Lymphocytes % (auto) 5.1 % (10.0-50.0); Mean Corpuscular Hemoglobin 29.4 pg (28.0-32.0); Mean Corpuscular Hgb Conc. 33.2 g/dL (32.0-36.0); Mean Corpuscular Volume 88.6 fL (80.0-100.0); Monocytes # (auto) 0.9 10 ^3/uL (0-1.3); Monocytes % (auto) 4.6 % (0.0-12.0); Neutrophils # (auto) 17.7 10 ^3/uL (1.6-8.6); Neutrophils % (auto) 89.6 % (37.0-80.0); Red Blood Cells 3.53 10^6/uL (4.5-5.90); Red Cell Distribution Width 15.4 % (11.8-14.3); White Blood Cell 19.7 10^3/uL (4.4-10.8)
[2022-03-07 05:52] LABS: INR 1.9 (0.9-1.15); Partial Thromboplastin Time 29.6 sec (24.6-33.4)
[2022-03-07 06:02] LABS: Albumin 1.9 g/dL (3.4-5.0); Potassium 4.5 mmol/L (3.5-5.1)
[2022-03-07 06:06] LABS: BUN/Creatinine Ratio 35.7; Bilirubin, Total 0.6 mg/dL (0.2-1.0); Calcium 8.3 mg/dL (8.5-10.1); Total Protein 6.9 g/dL (6.4-8.2)
[2022-03-07] MEDS ORDERED: ALBUTEROL MEDNEB 2.5 mg/3ml NEB ONE (06:23)
[2022-03-07] MEDS ORDERED: IPRATROPIUM BROM 0.5 MG/2.5ML INH SOL ONE (06:23)
[2022-03-07] MEDS: ALBUTEROL SULF 2.5 MG/0.5ML(0.5%) NEB SOLN NEB SCH ×2 (06:26→11:28)
[2022-03-07] MEDS: IPRATROPIUM BROM 0.5 MG/2.5ML INH SOL NEB SCH ×2 (06:26→11:28)
[2022-03-07] MEDS: LEVOTHYROXINE SODIUM 100 MCG TAB PO SCH (06:31)
[2022-03-07 07:46] VITALS: BP 103/65
[2022-03-07] MEDS ORDERED: PRED20TA2 PO (09:47)
[2022-03-07] MEDS ORDERED: GUAI200T2 PO (09:48)
[2022-03-07] MEDS: POLYETHYLENE GLYCOL 17 GM PWDR PO SCH (10:00)
[2022-03-07] MEDS: methylPREDNISolone SOD SUCC 125 MG/2 ML VL IV SCH (10:45)
[2022-03-07] MEDS: AMIODARONE HCL 200 MG TAB PO SCH (10:46)
[2022-03-07] MEDS: ASPirin-EC 81 mg tab PO SCH (10:46)
[2022-03-07] MEDS: METOPROLOL TARTRATE 50 MG TAB PO SCH (10:47)
[2022-03-07] MEDS: DIGOXIN 0.125 MG TAB PO SCH (10:48)
[2022-03-07] MEDS: HCTZ 25 MG TAB PO SCH (10:48)
[2022-03-07] MEDS: DOCUSATE SOD 100 MG CAP PO SCH (10:50)
[2022-03-07] MEDS: OXYMETAZOLINE NASAL SPRAY EACHNOSTRI SCH (11:56)
[2022-03-07 12:02] VITALS: BP 142/67
[2022-03-07] MEDS ORDERED: WARFARIN SODIUM 5 MG TAB PO ONE (17:00)
== END 2022-03-07 16:52 | disposition home health service (06) | DRG 871 ==
LOC: EDBD 02:42 → ER 02:45 → TELE 10:21 → TELE-CENTR 03-01 21:30
PROVIDERS: ADMIT Registered Nurse; ATTEND Internal Medicine Pulmonary Disease
DX: A41.52 Sepsis due to Pseudomonas (principal); E43 Unspecified severe protein-calorie malnutrition; J15.1 Pneumonia due to Pseudomonas; J96.21 Acute and chronic respiratory failure with hypoxia; I48.92 Unspecified atrial flutter; I50.32 Chronic diastolic (congestive) heart failure; J44.0 Chronic obstructive pulmonary disease with (acute) lower respiratory infection; J44.1 Chronic obstructive pulmonary disease with (acute) exacerbation; N17.9 Acute kidney failure, unspecified; Z16.24 Resistance to multiple antibiotics; Z20.822 Contact with and (suspected) exposure to COVID-19; E66.9 Obesity, unspecified; E78.5 Hyperlipidemia, unspecified; E87.6 Hypokalemia; I11.0 Hypertensive heart disease with heart failure; I25.10 Atherosclerotic heart disease of native coronary artery without angina pectoris; I27.20 Pulmonary hypertension, unspecified; I48.0 Paroxysmal atrial fibrillation; Z79.01 Long term (current) use of anticoagulants; Z98.61 Coronary angioplasty status; Z86.711 Personal history of pulmonary embolism; Z82.49 Family history of ischemic heart disease and other diseases of the circulatory system; Z86.718 Personal history of other venous thrombosis and embolism; Z83.3 Family history of diabetes mellitus; I25.2 Old myocardial infarction; Z68.27 Body mass index [BMI] 27.0-27.9, adult
CPT/HCPCS: 36415; 36600; 71045; 71250; 80048; 80053; 80061; 81001; 82805; 83036; 83605; 83735; 83880; 84132; 84443; 84484; 85007; 85025; 85027; 85610; 85730; 87040; 87070; 87077; 87186; 87205; 87426; 87804; 93005; 94640; 94668; 96365; 96375; G0378; J0696; J2185; J7060

== ENCOUNTER → 2022-09-04 | Outpatient (CLI) | payer BC ==
[~2022-09-04] MED LIST changes: -BUDE1AER4 IN; +FLUT1AER7 IN; +FURO40TA4 PO; +GUAI200T6 PO; -HYDR12.56 PO; +HYDR12.59 PO; +PRED20TA2 PO; -RIVA20TA PO; +WARF-110 PO
[2022-09-04 13:50] LABS: Basophils # (auto) 0.1 10 ^3/uL (0-0.2); Basophils % (auto) 0.9 % (0.0-2.0); Eosinophils # (auto) 0.4 10 ^3/uL (0-0.8); Eosinophils % (auto) 4.2 % (0.0-7.0); Hematocrit 35.6 % (41.0-53.0); Hemoglobin 11.9 g/dL (13.5-17.5); Lymphocytes # (auto) 1.5 10 ^3/uL (0.4-5.4); Lymphocytes % (auto) 16.1 % (10.0-50.0); Mean Corpuscular Hemoglobin 29.3 pg (28.0-32.0); Mean Corpuscular Hgb Conc. 33.6 g/dL (32.0-36.0); Mean Corpuscular Volume 87.2 fL (80.0-100.0); Monocytes # (auto) 0.7 10 ^3/uL (0-1.3); Monocytes % (auto) 7.2 % (0.0-12.0); Neutrophils # (auto) 6.8 10 ^3/uL (1.6-8.6); Neutrophils % (auto) 71.6 % (37.0-80.0); Nucleated Red Blood Cells % 0.1 %; Red Blood Cells 4.08 10^6/uL (4.5-5.90); Red Cell Distribution Width 15.8 % (11.8-14.3); White Blood Cell 9.5 10^3/uL (4.4-10.8)
[2022-09-04 14:10] LABS: INR 2.27 (0.9-1.15); Partial Thromboplastin Time 31.1 sec (24.6-33.4)
[2022-09-04 14:23] LABS: BUN/Creatinine Ratio 17.1 (10.0-20.0); Calcium 7.8 mg/dL (8.5-10.1)
== END | disposition home or self-care (01) ==
LOC: LAB 13:36
PROVIDERS: ATTEND Internal Medicine Pulmonary Disease
DX: Z01.812 Encounter for preprocedural laboratory examination (principal); I82.409 Acute embolism and thrombosis of unspecified deep veins of unspecified lower extremity; R01.1 Cardiac murmur, unspecified
CPT/HCPCS: 36415; 80048; 85025; 85610; 85730

== ENCOUNTER → 2022-09-18 | Outpatient (CLI) | payer BC ==
[2022-09-18 12:02] LABS: Basophils # (auto) 0.1 10 ^3/uL (0-0.2); Eosinophils # (auto) 0.2 10 ^3/uL (0-0.8); Eosinophils % (auto) 1.9 % (0.0-7.0); Hematocrit 40.4 % (41.0-53.0); Hemoglobin 13.4 g/dL (13.5-17.5); Lymphocytes # (auto) 1.5 10 ^3/uL (0.4-5.4); Lymphocytes % (auto) 12.3 % (10.0-50.0); Mean Corpuscular Hemoglobin 29.6 pg (28.0-32.0); Mean Corpuscular Hgb Conc. 33.2 g/dL (32.0-36.0); Mean Corpuscular Volume 89.1 fL (80.0-100.0); Monocytes # (auto) 0.8 10 ^3/uL (0-1.3); Monocytes % (auto) 6.7 % (0.0-12.0); Neutrophils # (auto) 9.6 10 ^3/uL (1.6-8.6); Neutrophils % (auto) 78.1 % (37.0-80.0); Red Blood Cells 4.53 10^6/uL (4.5-5.90); Red Cell Distribution Width 16.8 % (11.8-14.3); White Blood Cell 12.3 10^3/uL (4.4-10.8)
[2022-09-18 13:06] LABS: INR 1.07 (0.9-1.15); Partial Thromboplastin Time 24.8 SEC (24.5-34.5)
== END | disposition home or self-care (01) ==
LOC: LAB 11:35
PROVIDERS: ATTEND Internal Medicine Pulmonary Disease
DX: Z01.812 Encounter for preprocedural laboratory examination (principal); I82.409 Acute embolism and thrombosis of unspecified deep veins of unspecified lower extremity
CPT/HCPCS: 36415; 85025; 85610; 85730

== ENCOUNTER → 2022-09-20 | Outpatient (CLI) | payer BC, MEDICAID ==
[~2022-09-20] MED LIST changes: +LIDOCAINE 2%HCL (LOCAL ANESTH.) INJ 10ml MDV ONE; +MIDAZOLAM HCL 2MG/2ML 2ml VIAL (1mg/ml) IV ONE; +MIDAZOLAM HCL 2MG/2ML 2ml VIAL (1mg/ml) ONE; +fentaNYL CITRATE 100 MCG/2 ML VL IV ONE; +fentaNYL CITRATE 100 MCG/2 ML VL ONE
== END | disposition home or self-care (01) ==
LOC: CT 08:35
PROVIDERS: ATTEND Internal Medicine Pulmonary Disease
DX: J43.9 Emphysema, unspecified (principal); R91.1 Solitary pulmonary nodule
CPT/HCPCS: 71250; J2001; J3010; J2250

== ENCOUNTER → 2023-01-09 | Outpatient (CLI) | payer BC ==
[~2023-01-09] MED LIST changes: +ALBUTEROL SULF 2.5 MG/0.5ML(0.5%) NEB SOLN ONE; -LIDOCAINE 2%HCL (LOCAL ANESTH.) INJ 10ml MDV ONE; -MIDAZOLAM HCL 2MG/2ML 2ml VIAL (1mg/ml) IV ONE; -MIDAZOLAM HCL 2MG/2ML 2ml VIAL (1mg/ml) ONE; -fentaNYL CITRATE 100 MCG/2 ML VL IV ONE; -fentaNYL CITRATE 100 MCG/2 ML VL ONE
== END | disposition home or self-care (01) ==
LOC: RT 10:32
PROVIDERS: ATTEND Internal Medicine Pulmonary Disease
DX: J44.9 Chronic obstructive pulmonary disease, unspecified (principal); R06.09 Other forms of dyspnea
CPT/HCPCS: 94060; 94727; 94729

== ENCOUNTER 2024-03-27 17:57 | Inpatient (IN) | payer BC, MEDICAID, MEDICARE ==
[~2024-03-27] VITALS: Ht 182.9 cm; Wt 91.3 kg
[~2024-03-27 17:57] MED LIST changes: -ALBUTEROL SULF 2.5 MG/0.5ML(0.5%) NEB SOLN ONE
--- NOTE | 2024-03-27 19:16 | ED.PDOC ---
HPI Comments 73-year-old male that came to ER via EMS for chest pains. Patient has history of AFib and COPD. States he underwent cardiac ablation at [facility] 2 weeks ago. Patient was apparently well until 10 a.m. today, when he developed sudden onset, unprovoked, substernal chest pains, described as "angina-like', non radiating. Denies any palpitations or shortness of breath. Patient was given aspirin while EN route to the ER. Chief Complaint: Chest Pain Time Seen by MD: 19:15 Primary Care Provider: ALBINA Reviewed Notes: Nurses Notes, Financial Services Consultant Notes Allergies: Coded Allergies: NO KNOWN ALLERGIES (Unverified , 08/04/19) Home Meds Active Scripts Guaifenesin (Guaifenesin) 200 Mg Tab, 200 MG PO QID for 7 Days, #28 TAB Prov:RIO SULTANA MD 03/07/22 Prednisone (Prednisone) 20 Mg Tab, 20 MG PO BID for 5 Days, #10 TAB Prov:RIO SULTANA MD 03/07/22 Reported Medications Furosemide (Furosemide) 40 Mg Tab, 40 MG PO DAILY for 30 Days 03/02/22 Warfarin Sodium (Warfarin Sodium) 2.5 Mg Tab, 2.5 MG PO DAILY for 30 Days, MG 03/02/22 Fluticasone-Salmeterol (Wixela Inhub 500-50 Mcg/Dose) 1 Aer Aer, 1 AER IN BID, AER 03/02/22 Albuterol Sulfate (Albuterol Sulfate) 0.083 % Neb, 1 VIAL NEB Q6HPRN PRN for SHORTNESS OF BREATH, #50 VIAL 08/05/19 Levothyroxine Sodium (Levothyroxine Sodium) 100 Mcg Tab, 100 MCG PO QAM for 30 Days, MCG 08/05/19 Hydrochlorothiazide (Hydrochlorothiazide) 12.5 Mg Cap, 12.5 MG PO DAILY, MG 08/05/19 Amiodarone Hcl (Amiodarone Hcl) 200 Mg Tab, 200 MG PO DAILY 08/05/19 Atorvastatin Calcium (ATORVASTATIN CALCIUM) 40 Mg Tab, 1 TAB PO HS, #30 TAB 5 Refills 08/05/19 Metoprolol Tartrate (Metoprolol Tartrate) 25 Mg Tab, 25 MG PO BID for 30 Days, MG 09/03/18 Tiotropium [place] Monohydrate (Spiriva Handihaler) 18 Mcg Cap, 18 MCG IN QAM, CAP 08/09/18 Albuterol Sulfate (VENTOLIN MDI) 90 Mcg Ih, 2 PUFF IN TID PRN for SHORTNESS OF BREATH for 30 Days, MCG 08/09/18 Aspirin (Aspir-Low) 81 Mg Tab, 81 MG PO DAILY for 30 Days, MG 08/09/18 Information Source: Patient Mode of Arrival: EMS Severity: Moderate Timing: Hours Duration: Since onset Prehospital treatment: 12 Lead EKG, ASA, Oxygen Location: Substernal Radiation: No Radiation Quality: Aching, Tightness Onset: At Rest Cardiac Risk Factors: HTN, Other (AFib) PE Risk Factors: Recent Surgery History of: Similar pain in past Modifying Factors: Nothing Associated Signs and Symptoms: None Past Medical History PAST MEDICAL HISTORY: AFIB, CAD, COPD, High Lipids, SD, PE Surgical History: PTCA, Tonsillectomy Family History Family History: Reviewed,noncontributory to illness Social History Smoker: Non-Smoker Alcohol: Occasionally Drugs: Denies Drug Use Lives In: Home Constitutional: denies: chills, diaphoresis, fatigue, fever, malaise, sweats, w eakness, others EENTM: denies: blurred vision, double vision, ear bleeding, ear discharge, ear drainage, ear pain, ear ringing, eye pain, eye redness, hearing loss, mouth pain, mouth swelling, nasal discharge, nose bleeding, nose congestion, nose pain, photophobia, tearing, throat pain, throat swelling, voice changes, others Respiratory: reports: SOB at rest, shortness of breath; denies: cough, hemoptysis, orthopnea, SOB with excertion, stridor, wheezing, others Cardiovascular: reports: chest pain; denies: dizzy spells, diaphoresis, Dyspnea on exertion, edema, irregular heart beat, left arm pain, lightheadedness, palpitations, PND, syncope, others Gastrointestinal: denies: abdomen distended, abdominal pain, blood streaked bowels, constipated, diarrhea, dysphagia, difficulty swallowing, hematemesis, melena, nausea, poor appetite, poor fluid intake, rectal bleeding, rectal pain, vomiting, others Genitourinary: denies: burning, dysuria, flank pain, frequency, hematuria, incontinence, penile discharge, penile sore, pain, testicle pain, testicle swelling, urgency, others Neurological: denies: dizziness, fainting, headache, left sided numbness, left sided weakness, numbness, paresthesia, pre-existing deficit, right sided numbness, right sided weakness, seizure, speech problems, tingling, tremors, weakness, others Musculoskeletal: denies: back pain, gout, joint pain, joint swelling, muscle pain, muscle stiffness, neck pain, others Integumetry: denies: bruises, change in color, change in hair/nails, dryness, laceration, lesions, lumps, rash, wounds, others Allergic/Immunocompromised: denies: Difficulty Healing, Frequent Infections, Hives, Itching, others Hematologic/Lymphatic: denies: anemia, blood clots, easy bleeding, easy bruising, swollen glands, others Endocrine: denies: excessive hunger, excessive sweating, excessive thirst, excessive urination, flushing, intolerance to cold, intolerance to heat, unexplained weight gain, unexplained weight loss, others Psychiatric: denies: anxiety, bipolar disorder, depression, hopeless, panic disorder, schizophrenia, sleepless, suicidal, others Physical Exam General Appearance: No Apparent Distress, Normal HEENT: Normal ENT Inspection, Pharynx Normal, TMs Normal Neck: Full Range of Motion, Non-Tender, Normal, Normal Inspection Respiratory: Chest Non-Tender, Lungs Clear, No Accessory Muscle Use, No Respiratory Distress, Normal Breath Sounds Cardiovascular: No Edema, No JVD, No Murmur, No Gallop, Normal Peripheral Pulses, Regular Rate/Rhythm Breast Exam: Deferred Gastrointestinal: No Organomegaly, Non Tender, No Pulsatile Mass, Normal Bowel Sounds, Soft Genitalia: Deferred Pelvic: Deferred Rectal: Deferred Extremities: No calf tenderness, Normal capillary refill, Normal inspection, Normal range of motion, Non-tender, No pedal edema Musculoskeletal : Apperance: Normal Neurologic: Alert, middleware administrator II-XII nml as Tested, No Motor Deficits, Normal Affect, Normal Mood, No Sensory Deficits Cerebellar Function: Normal Reflexes: Normal Skin: Dry, Normal Color, Warm Lymphatic: No Adenopathy EKG EKG : Pulse Rate (adult): 114 Cardiac Rhythm: Afib Was a procedure done? Was a procedure done?: No CP Differential Dx Differential Diagnosis: A-fib, Angina, Anxiety / Panic Attack Differential Diagnosis: Angina, Chest Wall Pain, Costochondritis, Esophageal reflux/spasm, Gastritis, Myocardial Infarction X-Ray, Labs, Meds, VS Vital Signs Date Time Temp Pulse Resp B/P (MAP) Pulse Ox O2 Delivery O2 Flow Rate FiO2 03/27/24 19:16 114 03/27/24 19:01 111 03/27/24 18:43 98.2 114 20 99/63 (75) 97 03/27/24 17:57 119 Lab Test 03/27/24 19:28 03/27/24 18:47 Range/Units Troponin I High Sensitivity 11 11 </=54 ng/L White Blood Count 22.0 H 4.4-10.8 10^3/uL Red Blood Count 3.56 L 4.5-5.90 10^6/uL Hemoglobin 10.2 L 13.5-17.5 g/dL Hematocrit 30.5 L 41.0-53.0 % Mean Corpuscular Volume 85.8 80.0-100.0 fL Mean Corpuscular Hemoglobin 28.5 28.0-32.0 pg Mean Corpuscular Hemoglobin Concent 33.2 32.0-36.0 g/dL Red Cell Distribution Width 17.0 H 11.8-14.3 % Platelet Count 309 140-450 10^3/uL Mean Platelet Volume 7.1 6.9-10.8 fL Neutrophils (%) (Auto) 91.5 H 37.0-80.0 % Lymphocytes (%) (Auto) 4.6 L 10.0-50.0 % Monocytes (%) (Auto) 3.3 0.0-12.0 % Eosinophils (%) (Auto) 0.1 0.0-7.0 % Basophils (%) (Auto) 0.5 0.0-2.0 % Neutrophils # (Auto) 20.2 H 1.6-8.6 10 ^3/uL Lymphocytes # (Auto) 1.0 0.4-5.4 10 ^3/uL Monocytes # (Auto) 0.7 0-1.3 10 ^3/uL Eosinophils # (Auto) 0 0-0.8 10 ^3/uL Basophils # (Auto) 0.1 0-0.2 10 ^3/uL Nucleated Red Blood Cells 0.0 % Prothrombin Time 14.0 H 9.3-11.8 sec Prothrombin Time INR 1.35 H 0.9-1.15 Activated Partial Thromboplast Time 30.6 24.5-34.5 SEC Sodium Level 135 L 136-145 mmol/L Potassium Level 3.9 3.5-5.1 mmol/L Chloride Level 101 98-107 mmol/L Carbon Dioxide Level 28 20-31 mmol/L Anion Gap 6 5-15 Blood Urea Nitrogen 23 9-23 mg/dL Creatinine 1.54 H 0.700-1.30 mg/dL Glomerular Filtration Rate Calc 48 >90 mL/min BUN/Creatinine Ratio 14.9 10.0-20.0 Serum Glucose 100 74-106 mg/dL Calcium Level 8.3 L 8.7-10.4 mg/dL Total Bilirubin 0.5 0.2-1.0 mg/dL Aspartate Amino Transferase (AST) 22 13-40 U/L Alanine Aminotransferase (ALT) 21 7-40 U/L Alkaline Phosphatase 114 46-116 U/L B-Type Natriuretic Peptide 208.84 0-100 pg/mL Total Protein 7.3 5.7-8.2 g/dL Albumin 3.2 3.2-4.8 g/dL Time of 1ST Reevaluation: 19:11 Reevaluation 1ST: Unchanged Time of 2ND Reevaluation: 20:47 Reevaluation 2ND: Unchanged Patient Education/Counseling: Diagnosis, Treatment Family Education/Counseling: No Family Present Departure 1 Departure Time of Disposition: 20:48 Impression: Primary Impression: Atrial fibrillation Additional Impression: Unstable angina Disposition: ADMITTED INPATIENT Condition: Guarded Critical Care Note Critical Care Time?: Yes (35 min-critical care time only) Critical care comment: Chest pain Total critical care time: Approximately 36 minutes Due to a high probability of clinically significant, life threatening deterioration, the patient required my highest level of preparedness to interven e emergently and I personally spent this critical care time directly and personally managing the patient. This critical care time included obtaining a history; examining the patient; pulse oximetry; ordering and review of studies; arranging urgent treatment with development of a management plan; evaluation of patient's response to treatment; frequent reassessment; and, discussions with other providers. This critical care time was performed to assess and manage the high probability of imminent, life-threatening deterioration that could result in multi-organ failure. It was exclusive of separately billable procedures and treating other patients. Stability Stability form required: No Heart Score Heart Score: Heart Score Response (Comments) Value History Moderate Suspicious 1 EKG Repolarization Disturb 1 Age >65 2 Risk Factors >3 or Hx ASHD 2 Troponin Normal limit 0 Total 6 I personally scribed for DANNA GARCIA MD ([email or web address]) on 03/27/24 at 19:16. Electronically submitted by Néstor Atkinson ([email or web address]). DANNA GARCIA MD Mar 27, 2024 19:16
[2024-03-27 19:19] LABS: INR 1.35 (0.9-1.15); Partial Thromboplastin Time 30.6 SEC (24.5-34.5)
[2024-03-27 19:22] LABS: Alanine Aminotransferase 21 U/L (7-40); Alkaline Phosphatase 114 U/L (46-116); Anion Gap 6 (5-15); BUN/Creatinine Ratio 14.9 (10.0-20.0); Blood Urea Nitrogen 23 mg/dL (9-23); Carbon Dioxide 28 mmol/L (20-31); Chloride 101 mmol/L (98-107); Glucose 100 mg/dL (74-106); Potassium 3.9 mmol/L (3.5-5.1)
[2024-03-27 19:23] LABS: Albumin 3.2 g/dL (3.2-4.8); Aspartate Aminotransferase 22 U/L (13-40); Bilirubin, Total 0.5 mg/dL (0.2-1.0); Total Protein 7.3 g/dL (5.7-8.2)
[2024-03-27 19:25] LABS: Calcium 8.3 mg/dL (8.7-10.4); Sodium 135 mmol/L (136-145)
[2024-03-27 19:35] LABS: Basophils # (auto) 0.1 10 ^3/uL (0-0.2); Basophils % (auto) 0.5 % (0.0-2.0); Eosinophils # (auto) 0 10 ^3/uL (0-0.8); Eosinophils % (auto) 0.1 % (0.0-7.0); Hematocrit 30.5 % (41.0-53.0); Hemoglobin 10.2 g/dL (13.5-17.5); Lymphocytes % (auto) 4.6 % (10.0-50.0); Mean Corpuscular Hemoglobin 28.5 pg (28.0-32.0); Mean Corpuscular Hgb Conc. 33.2 g/dL (32.0-36.0); Mean Corpuscular Volume 85.8 fL (80.0-100.0); Monocytes # (auto) 0.7 10 ^3/uL (0-1.3); Monocytes % (auto) 3.3 % (0.0-12.0); Neutrophils # (auto) 20.2 10 ^3/uL (1.6-8.6); Neutrophils % (auto) 91.5 % (37.0-80.0); Platelet Count (auto) 309 10^3/uL (140-450); Red Blood Cells 3.56 10^6/uL (4.5-5.90)
[2024-03-27 19:45] VITALS: PULSE 111; RESP 16; O2SAT 96
--- NOTE | 2024-03-27 20:31 | DVH ---
CHEST RADIOGRAPH Indication: chest pain Technique: Single frontal view of the chest was obtained COMPARISON: CHEST PORTABLE on DOS: 02/28/22, CHEST PORTABLE on DOS: 08/04/19 FINDINGS: Lines and Tubes: None Lungs: Retrocardiac opacity may reflect pneumonia or aspiration Pleura: Small left pleural effusion. No pneumothorax. Cardiomediastinal contours: Unremarkable Bones: Unremarkable IMPRESSION: 1. Retrocardiac opacity may reflect pneumonia or aspiration. 2. Small left pleural effusion
[2024-03-27] MEDS: ONDANSETRON HCL 4 MG/2 ML VIAL IV ONE (20:47)
[2024-03-27] MEDS: ASPirin 81 mg TAB PO ONE (21:07)
[2024-03-27] MEDS: MORPHINE SULFATE 4 MG/ML SYR/VIAL IV ONE (21:08)
[2024-03-27] MEDS: METOPROLOL TARTRATE 1MG/1ML-5ML VIAL IV ONE (21:19)
[2024-03-27] MEDS ORDERED: DOCUSATE SOD 100 MG CAP PO PRN (21:45)
[2024-03-27] MEDS ORDERED: ACETAMINOPHEN 325 MG TAB PO PRN (21:45)
[2024-03-27] MEDS: CARVEDILOL 3.125 MG TAB PO SCH (22:00)
--- NOTE | 2024-03-27 22:05 | DVHHP2 ---
History of Present Illness Reason for Visit: Atrial fibrillation History of Present Illness The patient is a 73-year-old male with past medical history of AFib, Coronary artery disease, COPD, KS, PE, and hyperlipidemia who presented to [facility] ED with complaint of chest pain. Patient reports he underwent a cardiac ablation at [facility] 2 weeks ago. Patient reports sudden onset of substernal chest pain described as anginal-like sensation, nonradiating, racing heart rate, shortness of breaths, getting worse that prompted this visit. Patient was seen and evaluated in the ED, laboratory data shows WBC 22.0, hemoglobin 10.2, hematocrit 30.5, platelets 309, sodium 135, potassium 3.9, BUN 23, creatinine 1.54, GFR 48, troponin 11, glucose 100, BNP 208.84, blood pressure 91/64, heart rate 129 trending down to 106, temperature 99.9 F, O2 saturation 96% on oxygen. Chest x-ray revealing retrocardiac opacity may reflect pneumonia aspiration, small left pleural effusion. Patient was started IV antibiotic regimen azithromycin, please see medication orders section in the computer. On my assessment, patient denies chest pain at this moment, no headache, no dizziness, no diaphoresis, no palpitations, currently on oxygen, no nausea, no vomiting, no fever, no chills. Patient was admitted further evaluation and medical management. Past Medical History AFIB, CAD, COPD, High Lipids, KS, PE Past Surgical History PTCA, Tonsillectomy Family History Reviewed, noncontributory to the management of this case. Past Social History The patient lives at home, denies smoking, alcohol or illicit drugs abuse. Review of Systems Constitutional: Yes: Weakness; No: Fever, Chills, Sweats, Malaise, Other Eyes: No: Pain, Vision change, Conjunctivae inflammation, Eyelid inflammation, Other, Redness ENT: No: Ear pain, Ear discharge, Nose pain, Nose discharge, Nose congestion, Mouth pain, Mouth swelling, Throat pain, Throat swelling, Other Respiratory: Shortness of breath, SOB with excertion, Other (SOB at rest); No: Cough, Dry, Wheezing, Hemoptysis, Pleuritic Pain, Sputum, Wheezing Cardiovascular: Chest Pain; No: Palpitations, Orthopnea, Paroxysmal Noc. Dyspnea, Edema, Lt Headedness, Other Gastrointestinal: No: Nausea, Vomiting, Abdominal Pain, Diarrhea, Constipation, Melena, Hematochezia, Other Genitourinary: No Dysuria, No Frequency, No Incontinence, No Hematuria, No Retention, No Other Musculoskeletal: No: other, neck pain, shoulder pain, arm pain, back pain, hand pain, leg pain, foot pain Skin: No: Rash, Lesions, Jaundice, Bruising, Other Neurological: No: Weakness, Numbness, Incoordination, Change in speech, Confusion, Seizures, Other Allergies: Coded Allergies: NO KNOWN ALLERGIES (Unverified , 08/04/19) Medications Current Medications Medications Dose Ordered Sig/Saige Route Start Time Stop Time Status Last Admin Dose Admin Albuterol 2.5 mg Q4HPRN PRN NEB 03/27/24 21:45 UNV Ipratropium [place] 0.5 mg Q4HPRN PRN NEB 03/27/24 21:45 UNV Levothyroxine Sodium 100 mcg QAM@0600 PO 03/28/24 06:00 UNV Aspirin 81 mg DAILY PO 03/28/24 10:00 UNV Furosemide 20 mg DAILY IV 03/28/24 10:00 UNV Warfarin Sodium RX PROTOCOL PER PHARMACY PO 03/27/24 21:45 UNV Azithromycin 250 ml @ 125 mls/hr DAILY IV 03/28/24 10:00 UNV Ceftriaxone Sodium 50 ml @ 100 mls/hr DAILY@09 IV 03/28/24 09:00 UNV Atorvastatin Calcium 20 mg HS PO 03/27/24 22:00 UNV Sodium Chloride 10 ml Q8HR IV 03/27/24 22:00 UNV Acetaminophen/ Hydrocodone Bitart 1 tab Q4HP PRN PO 03/27/24 21:45 UNV Ondansetron HCl 4 mg Q4HP PRN IV 03/27/24 21:45 UNV Docusate Sodium 100 mg BIDPRN PRN PO 03/27/24 21:45 UNV Acetaminophen 650 mg Q6HP PRN PO 03/27/24 21:45 UNV Carvedilol 3.125 mg Q12HR PO 03/27/24 22:00 UNV Exam Vital Signs Vital Signs Date Time Temp Pulse Resp B/P (MAP) Pulse Ox O2 Delivery O2 Flow Rate FiO2 03/27/24 21:28 76 16 97/49 (65) 96 03/27/24 19:45 99.9 99.9 General Appearance: Alert, Oriented X3, Cooperative, No acute distress HEENT: Atraumatic, PERRLA, EOMI, Mucous membr. moist/pink Respiratory: Normal air movement, Other (Diminished breath sounds) Cardiovascular: Regular rate, Normal S1, Normal S2, No murmurs Abdominal: Normal bowel sounds, Soft, No tenderness, No hepatospenomegaly, No masses Extremities: No clubbing, No cyanosis, No edema, Normal pulses, No tenderness/swelling Skin: No rashes, No breakdown, No significant lesion Neuro: Normal speech, Normal tone, Sensation intact, Cranial nerves 3-12 NL, Reflexes 2+, Other (Generalized weakness) Psych/Mental Status: Mental status NL, Mood NL Labs/Xrays Labs Test 03/27/24 21:14 03/27/24 19:28 03/27/24 18:47 Range/Units Troponin I High Sensitivity 11 </=54 ng/L White Blood Count 22.0 H 4.4-10.8 10^3/uL Red Blood Count 3.56 L 4.5-5.90 10^6/uL Hemoglobin 10.2 L 13.5-17.5 g/dL Hematocrit 30.5 L 41.0-53.0 % Mean Corpuscular Volume 85.8 80.0-100.0 fL Mean Corpuscular Hemoglobin 28.5 28.0-32.0 pg Mean Corpuscular Hemoglobin Concent 33.2 32.0-36.0 g/dL Red Cell Distribution Width 17.0 H 11.8-14.3 % Platelet Count 309 140-450 10^3/uL Mean Platelet Volume 7.1 6.9-10.8 fL Neutrophils (%) (Auto) 91.5 H 37.0-80.0 % Lymphocytes (%) (Auto) 4.6 L 10.0-50.0 % Monocytes (%) (Auto) 3.3 0.0-12.0 % Eosinophils (%) (Auto) 0.1 0.0-7.0 % Basophils (%) (Auto) 0.5 0.0-2.0 % Neutrophils # (Auto) 20.2 H 1.6-8.6 10 ^3/uL Lymphocytes # (Auto) 1.0 0.4-5.4 10 ^3/uL Monocytes # (Auto) 0.7 0-1.3 10 ^3/uL Eosinophils # (Auto) 0 0-0.8 10 ^3/uL Basophils # (Auto) 0.1 0-0.2 10 ^3/uL Nucleated Red Blood Cells 0.0 % Prothrombin Time 14.0 H 9.3-11.8 sec Prothrombin Time INR 1.35 H 0.9-1.15 Activated Partial Thromboplast Time 30.6 24.5-34.5 SEC Sodium Level 135 L 136-145 mmol/L Potassium Level 3.9 3.5-5.1 mmol/L Chloride Level 101 98-107 mmol/L Carbon Dioxide Level 28 20-31 mmol/L Anion Gap 6 5-15 Blood Urea Nitrogen 23 9-23 mg/dL Creatinine 1.54 H 0.700-1.30 mg/dL Glomerular Filtration Rate Calc 48 >90 mL/min BUN/Creatinine Ratio 14.9 10.0-20.0 Serum Glucose 100 74-106 mg/dL Calcium Level 8.3 L 8.7-10.4 mg/dL Total Bilirubin 0.5 0.2-1.0 mg/dL Aspartate Amino Transferase (AST) 22 13-40 U/L Alanine Aminotransferase (ALT) 21 7-40 U/L Alkaline Phosphatase 114 46-116 U/L B-Type Natriuretic Peptide 208.84 0-100 pg/mL Total Protein 7.3 5.7-8.2 g/dL Albumin 3.2 3.2-4.8 g/dL PATIENT: JANET CHAN ACCT: [id number] UNIT: [id number] : 1950 LOC: ER ROOM / BED: / AGE / SEX: 73 / M ADM STATUS: REG ER SERVICE 181 ORDERING PHYSICIAN: DANNA GARCIA MD PROCEDURE(s): CXRP - CHEST PORTABLE REASON: chest pain ORDER NUMBER(s): [id number], ACCESSION NUMBER(s): [id number] CHEST RADIOGRAPH Indication: chest pain Technique: Single frontal view of the chest was obtained COMPARISON: CHEST PORTABLE on DOS: 02/28/22, CHEST PORTABLE on DOS: 08/04/19 FINDINGS: Lines and Tubes: None Lungs: Retrocardiac opacity may reflect pneumonia or aspiration Pleura: Small left pleural effusion. No pneumothorax. Cardiomediastinal contours: Unremarkable Bones: Unremarkable IMPRESSION: 1. Retrocardiac opacity may reflect pneumonia or aspiration. 2. Small left pleural effusion Assessment/Plan Assessment/Plan Atrial fibrillation Unstable angina Pleural effusion, left Leukocytosis, unspecified Pneumonia, unspecified organism Plan 1. Admit to telemetry unit 2. Breathing treatment 3. Pain control management 4. IV antibiotic management 5. Management of fluids and electrolytes 6. Consultation for cardiology 7. Diagnostic test chest x-ray 8. DVT prophylaxis-on aspirin 9. Repeat labs CBC, CMP in a.m. 10. Home medication reviewed and reconciled 11. Continue with current medical management 12. Treatment plan discussed with patient and RN. Patient verbalized understanding. Plan discussed with: Patient, Other (N) My Orders Orders - JOEY GEE DNP Procedure Category Date Status Time Albuterol Medneb PHA 03/27/24 Logged (Ventolin Medneb) 21:45 Ipratropium Medneb PHA 03/27/24 Logged (Atrovent Medneb) 21:45 Thyroid Stimulating LAB 03/27/24 Logged Hormone 21:44 Levothyroxine Tablet PHA 03/28/24 Logged (Synthroid Tablet) 06:00 Aspirin Tablet PHA 03/28/24 Logged 10:00 Furosemide Injection PHA 03/27/24 Logged (Lasix Injection) 21:45 Furosemide Injection PHA 03/28/24 Logged (Lasix Injection) 10:00 Warfarin Per Rx PHA 03/27/24 Logged Protocol (Coumadin 21:45 Azithromycin 500mg/ PHA 03/28/24 Logged 250ml (Zithromax 50 10:00 Azithromycin 500mg/ PHA 03/27/24 Logged 250ml (Zithromax 50 21:45 Ceftriaxone 1gm/50ml PHA 03/28/24 Logged D5w (Rocephin) 09:00 Ceftriaxone 1gm/50ml PHA 03/27/24 Logged D5w (Rocephin) 21:45 Atorvastatin (Lipitor) PHA 03/27/24 Logged 22:00 Allergies CHASE 03/27/24 In Process 21:44 Code Status CODE 03/27/24 Transmitted 21:44 Sodium Chloride Lock PHA 03/27/24 Logged (Saline Lock Ns) 22:00 Oxygen Per Hour RT 03/27/24 Transmitted 21:44 Hydrocodone-Acet PHA 03/27/24 Logged 5/325mg Tab ([place] 21:45 Ondansetron Hcl PHA 03/27/24 Logged (Zofran) 21:45 Docusate Sodium PHA 03/27/24 Logged Capsule (Colace 21:45 Complete Blood Count LAB 03/28/24 Verified 04:00 Comprehensive LAB 03/28/24 Verified Metabolic Panel 04:00 Cardiac DIET 03/28/24 Transmitted Diet-2gna,Lofat,Lochol Breakfast Echo 2d Mode Cardiac US 03/27/24 Logged DOP 21:44 Condition: Serious CHASE 03/27/24 In Process 21:44 Acetaminophen Tablet PHA 03/27/24 Logged (Tylenol Tablet) 21:45 Bedrest With Bathroom CHASE 03/27/24 In Process Privileg 21:44 Sequential CHASE 03/27/24 In Process Compression Device Carvedilol Tablet PHA 03/27/24 Logged (Coreg Tablet) 22:00 * Cardiology Consult CONS 03/27/24 Transmitted 22:02 Admit ADMIT 03/27/24 Verified 22:[address] [facility] 03/27/24 Verified Sublingual (Ntrostat 22:15 Morphine Sulfate PHA 03/27/24 Verified Injection 22:15 Notify Md Of Changes [facility] 03/27/24 Verified From Base 22:04 Card Cutter For [facility] 03/27/24 Verified 24 Hours 22:04 Emergency Dysrhythmia [facility] 03/27/24 Verified Protocol 22:04 Rhythm Strips Once [facility] 03/27/24 Verified Every Shift 22:04 Oxygen By Nasal RT 03/27/24 Verified Cannula 22:04 Problem List: (1) Atrial fibrillation (2) Unstable angina (3) Pleural effusion, left (4) Leukocytosis, unspecified (5) Pneumonia, unspecified organism Date of Service: Mar 27, 2024 Billing Provider: JOEY GEE DNP Common Visit Codes: [id number] INP/OBS CARE (HIGH) JOEY GEE DNP Mar 27, 2024 22:05
[2024-03-27] MEDS ORDERED: NITROGLYCERIN 0.4 MG SL TAB SL PRN (22:15)
[2024-03-27 22:35] LABS: Lactic Acid w/Reflex 2.8 mmol/L (0.4-2.0)
[2024-03-27] MEDS: FUROSEMIDE 20 MG/2 ML VIAL IV ONE (22:38)
[2024-03-27] MEDS: ATORVASTATIN 20 MG TAB PO SCH (22:38)
[2024-03-27] MEDS: AZITHROMYCIN 500MG/ 250ML 250 ML IV ONE (22:39)
[2024-03-27] MEDS: SODIUM CHLOR 0.9% PF (SALINE LOCK) 10ML VIAL/SYR IV SCH (22:39)
[2024-03-27] MEDS: cefTRIAXone 1GM/50ML D5W 50 ML IV ONE (22:39)
[2024-03-27 22:53] VITALS: O2SAT 97
[2024-03-27 22:55] VITALS: BP 104/55; PULSE 82; RESP 20; TEMP 99.9; O2SAT 97
[2024-03-27 23:15] VITALS: PULSE 111; RESP 22; O2SAT 96
[2024-03-28] VITALS (23 sets, daily range): BP systolic 79–113; BP diastolic 27–64; PULSE 78–117; RESP 14–23; TEMP 98.7–98.9; O2SAT 87–96
[2024-03-28] MEDS: ALBUTEROL SULF 2.5 MG/0.5ML(0.5%) NEB SOLN NEB PRN (01:40)
[2024-03-28] MEDS: IPRATROPIUM BROM 0.5 MG/2.5ML INH SOL NEB PRN (01:40)
[2024-03-28] MEDS: MIDODRINE HCL 10 MG TAB PO ONE (01:49)
[2024-03-28] MEDS: SODIUM CHLORIDE 0.9% 500 ML IV ONE (03:15)
--- NOTE | 2024-03-28 03:31 | ECG ---
[facility] Test Date: 2024-03-27 Test Time: 19:01:11 Pat Name: JANET CHAN Department: [facility] Room: [address] [place] [address] Gender: M Investigation Specialist: arnol : 1950 Requested By: GUILLE LOPEZ Order Number: [id number] Reading MD: Shmuel Burkett Measurements Intervals [place] Rate: 111 P: 0 NE: 0 QRS: 79 QRSD: 108 T: 1 QT: 340 QTc: 462 Interpretive Statements Atrial fibrillation Electronically Signed On 03-28-2024 12:09:26 PST by Shmuel Burkett Please click the below link to view image of tracing.
[2024-03-28] MEDS: NOREPINEPHRINE 8 MG/250ML KIT 250 ML IV SCH (04:28)
[2024-03-28 05:13] LABS: Hematocrit 28.9 % (41.0-53.0); Hemoglobin 9.4 g/dL (13.5-17.5); Mean Corpuscular Hgb Conc. 32.6 g/dL (32.0-36.0); Platelet Count (auto) 301 10^3/uL (140-450); Red Blood Cells 3.36 10^6/uL (4.5-5.90); Red Cell Distribution Width 16.9 % (11.8-14.3); White Blood Cell 23.6 10^3/uL (4.4-10.8)
[2024-03-28 05:26] LABS: Basophils % (manual) 0 (0.0-2.0); Blast Cells 0; Eosinophils % (manual) 0 (0-7); Metamyelocytes % 0; Myelocytes % 0; Promyelocytes % 0; Reactive Lymphocytes 0
[2024-03-28 05:37] LABS: Alanine Aminotransferase 20 U/L (7-40); Alkaline Phosphatase 88 U/L (46-116); Anion Gap 6 (5-15); Aspartate Aminotransferase 31 U/L (13-40); BUN/Creatinine Ratio 14.5 (10.0-20.0); Bilirubin, Total 0.7 mg/dL (0.2-1.0); Carbon Dioxide 26 mmol/L (20-31); Chloride 100 mmol/L (98-107); Glucose 84 mg/dL (74-106); Potassium 3.9 mmol/L (3.5-5.1); Total Protein 6.7 g/dL (5.7-8.2)
[2024-03-28 05:44] LABS: Blood Urea Nitrogen 24 mg/dL (9-23); Calcium 8.1 mg/dL (8.7-10.4); Sodium 132 mmol/L (136-145)
[2024-03-28 05:51] LABS: Band Neutrophils % (manual) 15; Lymphocytes % (manual) 7 (10.0-50.0); Monocytes % (manual) 5 (0-12); Platelet Estimate Adequate
[2024-03-28] MEDS: MIDODRINE HCL 10 MG TAB PO SCH (06:06)
[2024-03-28] MEDS: LEVOTHYROXINE SODIUM 100 MCG TAB PO SCH (06:06)
--- NOTE | 2024-03-28 06:15 | ECG ---
[facility] Test Date: 2024-03-27 Test Time: 20:59:18 Pat Name: JANET CHAN Department: ER Room: [address] [place] [address] A Gender: M Human Resources Intern: YENIFER : 1950 Requested By: GUILLE LOPEZ Order Number: [id number] Reading MD: Shmuel Burkett Measurements Intervals [place] Rate: 114 P: 0 MO: 0 QRS: 65 QRSD: 104 T: 19 QT: 371 QTc: 512 Interpretive Statements Pacemaker spikes or artifacts Atrial fibrillation Prolonged QT interval Electronically Signed On 03-28-2024 12:09:47 PST by Shmuel Burkett Please click the below link to view image of tracing.
[2024-03-28] MEDS: ONDANSETRON HCL 4 MG/2 ML VIAL IV PRN (08:11)
[2024-03-28] MEDS: MORPHINE SULFATE INJ 2 MG/ml SYRG IV PRN (08:12)
--- NOTE | 2024-03-28 08:36 | DVHINCON2 ---
RENE VILLALTA [facility] 03/28/24 0836: Date Seen: Mar 28, 2024 Referring Physician LIBORIO Souza Reason for Consultation Atrial fibrillation History of Present Illness This is a 73 year-old male who presented to the Emergency Room via EMS with a chief complaint of chest pain since 1000 on 03/27/2024. Describes his chest pain as left-sided, pressure like, unprovoked, non-radiating and associated with generalized weakness, SOB, and a productive cough with white sputum. He underwent multiple 12 lead electrocardiogram revealing an atrial fibrillation rhythm with rapid ventricular rate in the 110s bpm. Serial troponin levels are negative. Follows up with primary registered nurse hh case manager at [facility] and a local global mobility specialist undergoing recent cardiac ablation with follow-up on 03/31/2024. Reports undergoing an unremarkable Cardiolite stress test six months ago. Significant medical history includes unspecified atrial fibrillation on Xarelto/amiodarone therapy undergoing cardiac ablation at [facility] on 03/07/2024, coronary artery disease status post PTCA including three DMITRIY on 2011 status post PTCA with balloon angioplasty of an acutely restenosed RPLB on 08/09/2018, diastolic heart failure, history of PE/DVT, pulmonary hypertension, hypertension, dyslipidemia, advanced COPD, and remote history of tobacco use. Past Medical History Past medical history reviewed. No other significant than mentioned above. Past Surgical History Cardiac ablation, 03/07/2024 PTCA including three DMITRIY in 2011 status post PTCA with balloon angioplasty of an acutely restenosed RPLB on 08/09/2018 Tonsillectomy Family History: Diabetes mellitus GRANDMOTHER FHx: hypertension GRANDMOTHER Family History Family history reviewed. Social History Denies the use of illicit drugs, alcohol, or tobacco use. Allergies: Coded Allergies: NO KNOWN ALLERGIES (Unverified , 08/04/19) Home Meds Active Scripts Guaifenesin (Guaifenesin) 200 Mg Tab, 200 MG PO QID for 7 Days, #28 TAB Prov:RIO SULTANA MD 03/07/22 Prednisone (Prednisone) 20 Mg Tab, 20 MG PO BID for 5 Days, #10 TAB Prov:RIO SULTANA MD 03/07/22 Reported Medications Furosemide (Furosemide) 40 Mg Tab, 40 MG PO DAILY for 30 Days 03/02/22 Warfarin Sodium (Warfarin Sodium) 2.5 Mg Tab, 2.5 MG PO DAILY for 30 Days, MG 03/02/22 Fluticasone-Salmeterol (Wixela Inhub 500-50 Mcg/Dose) 1 Aer Aer, 1 AER IN BID, AER 03/02/22 Albuterol Sulfate (Albuterol Sulfate) 0.083 % Neb, 1 VIAL NEB Q6HPRN PRN for SHORTNESS OF BREATH, #50 VIAL 08/05/19 Levothyroxine Sodium (Levothyroxine Sodium) 100 Mcg Tab, 100 MCG PO QAM for 30 Days, MCG 08/05/19 Hydrochlorothiazide (Hydrochlorothiazide) 12.5 Mg Cap, 12.5 MG PO DAILY, MG 08/05/19 Amiodarone Hcl (Amiodarone Hcl) 200 Mg Tab, 200 MG PO DAILY 08/05/19 Atorvastatin Calcium (ATORVASTATIN CALCIUM) 40 Mg Tab, 1 TAB PO HS, #30 TAB 5 Refills 08/05/19 Metoprolol Tartrate (Metoprolol Tartrate) 25 Mg Tab, 25 MG PO BID for 30 Days, MG 09/03/18 Tiotropium [place] Monohydrate (Spiriva Handihaler) 18 Mcg Cap, 18 MCG IN QAM, CAP 08/09/18 Albuterol Sulfate (VENTOLIN MDI) 90 Mcg Ih, 2 PUFF IN TID PRN for SHORTNESS OF BREATH for 30 Days, MCG 08/09/18 Aspirin (Aspir-Low) 81 Mg Tab, 81 MG PO DAILY for 30 Days, MG 08/09/18 Home Meds Home medications reviewed. Current Medications Current Medications Medications (Trade) Dose Ordered Sig/Saige Route PRN Reason Start Time Stop Time Status Last Admin Albuterol (Ventolin Medneb) 2.5 mg Q4HPRN PRN NEB SHORTNESS OF BREATH 03/27/24 21:45 03/28/24 01:40 Ipratropium [place] (Atrovent Medneb) 0.5 mg Q4HPRN PRN NEB SHORTNESS OF BREATH 03/27/24 21:45 03/28/24 01:40 Levothyroxine Sodium (Synthroid Tablet) 100 mcg QAM@0600 PO 03/28/24 06:00 03/28/24 06:06 Aspirin 81 mg DAILY PO 03/28/24 10:00 Furosemide (Lasix Injection) 20 mg DAILY IV 03/28/24 10:00 Warfarin Sodium (Coumadin Per Rx Protocol) RX PROTOCOL PER PHARMACY PO 03/27/24 21:45 UNV Azithromycin 250 ml @ 125 mls/hr DAILY IV 03/28/24 10:00 Ceftriaxone Sodium 50 ml @ 100 mls/hr DAILY@09 IV 03/28/24 09:00 Atorvastatin Calcium (Lipitor) 20 mg HS PO 03/27/24 22:00 03/27/24 22:38 Sodium Chloride (Saline Lock Ns) 10 ml Q8HR IV 03/27/24 22:00 03/28/24 06:03 Acetaminophen/ Hydrocodone Bitart (Monon 5/325MG Tab) 1 tab Q4HP PRN PO MODERATE PAIN (4-6 PAIN SCALE) 03/27/24 21:45 Ondansetron HCl (Zofran) 4 mg Q4HP PRN IV NAUSEA / VOMITING 03/27/24 21:45 03/28/24 08:11 Docusate Sodium (Colace Capsule) 100 mg BIDPRN PRN PO FOR CONSTIPATION 03/27/24 21:45 Acetaminophen (Tylenol Tablet) 650 mg Q6HP PRN PO PAIN SCALE 1-3 OR TEMP>100.4 03/27/24 21:45 Carvedilol (Coreg Tablet) 3.125 mg Q12HR PO 03/27/24 22:00 Nitroglycerin (Ntrostat Sublingual) 0.4 mg Q5MINP PRN SL FOR CHEST PAIN 03/27/24 22:15 Morphine Sulfate 2 mg Q30M PRN IV FOR CHEST PAIN 03/27/24 22:15 03/28/24 08:12 Midodrine (Proamatine Tablet) 10 mg TID@0600,1200,1800 PO 03/28/24 06:00 03/28/24 06:06 Norepinephrine Bitartrate 250 ml @ 3.75 mls/hr Q24H IV 03/28/24 04:30 03/28/24 04:28 Review of Systems Constitutional: Generalized weakness Ears, Nose, & Throat: No symptom reported Eyes: No symptom reported Neurological: No symptoms reported Pulmonary/Respiratory: SOB Cardiovascular: Chest pain Gastrointestinal: No symptom reported Genitourinary: No symptom reported Musculoskeletal: No symptom reported Skin: No symptom reported Psychiatric: No symptom reported Endocrine: No symptom reported Hemotologic/Lymphatic: No symptom reported Vital Signs Vital Signs Date Time Temp Pulse Resp B/P (MAP) Pulse Ox O2 Delivery O2 Flow Rate FiO2 03/28/24 08:12 124 18 119/41 03/28/24 07:00 96 03/27/24 23:30 98.2 98.2 03/27/24 23:15 Nasal Cannula* 4 36 Physical Exam General Appearance: Cooperative. Well developed. Well nourished. In no acute distress Head Exam: Normal inspection Neck Exam: Normal inspection. Non-tender. Normal alignment Pulmonary/Respiratory: Chest non-tender. Coarse bilateral breath sounds. O2 via NC Cardiovascular/Chest: Irregularly irregular rate and rhythm. Atrial fibrillation, controlled rate. No murmurs. No JVD. Peripheral Pulses: 2+ Radial (R). 2+ Radial (L). 2+ Pedal (R). 2+ Pedal (L) Abdominal Exam: Normal bowel sounds. Soft. Nontender. No hepatospenomegaly. No masses Ankle Exam: Negative ankle edema Lower extremities: Negative lower extremity edema Neuro/Mental Status: A&O x4. Coherent Thoughts/Psych: Normal thought pattern. Appropriate mood and affect. Good judgement and insight Appearance: In no acute distress Skin Exam: Normal inspection. Normal color. Warm. Dry Labs/Diagnostic Data Labs Test 03/28/24 04:50 03/28/24 02:55 03/27/24 19:28 03/27/24 18:47 Range/Units White Blood Count 23.6 H 4.4-10.8 10^3/uL Red Blood Count 3.36 L 4.5-5.90 10^6/uL Hemoglobin 9.4 L 13.5-17.5 g/dL Hematocrit 28.9 L 41.0-53.0 % Mean Corpuscular Volume 86.0 80.0-100.0 fL Mean Corpuscular Hemoglobin 28.0 28.0-32.0 pg Mean Corpuscular Hemoglobin Concent 32.6 32.0-36.0 g/dL Red Cell Distribution Width 16.9 H 11.8-14.3 % Platelet Count 301 140-450 10^3/uL Mean Platelet Volume 6.8 L 6.9-10.8 fL Neutrophils (%) (Auto) 37.0-80.0 % Lymphocytes (%) (Auto) 10.0-50.0 % Monocytes (%) (Auto) 0.0-12.0 % Basophils (%) (Auto) 0.0-2.0 % Neutrophils # (Auto) 1.6-8.6 10 ^3/uL Lymphocytes # (Auto) 0.4-5.4 10 ^3/uL Monocytes # (Auto) 0-1.3 10 ^3/uL Differential Total Cells Counted 100.0 100 Neutrophils % (Manual) 73 37.0-80.0 Band Neutrophils % (Manual) 15 Lymphocytes % (Manual) 7 L 10.0-50.0 Monocytes % (Manual) 5 0-12 Eosinophils % (Manual) 0 0-7 Basophils % (Manual) 0 0.0-2.0 Metamyelocytes % (manual) 0 Myelocytes % (Manual) 0 Promyelocytes % (Manual) 0 Blast Cells % (Manual) 0 Reactive Lymphocytes 0 Platelet Estimate Adequate Sodium Level 132 L 136-145 mmol/L Potassium Level 3.9 3.5-5.1 mmol/L Chloride Level 100 98-107 mmol/L Carbon Dioxide Level 26 20-31 mmol/L Anion Gap 6 5-15 Blood Urea Nitrogen 24 H 9-23 mg/dL Creatinine 1.66 H 0.700-1.30 mg/dL Glomerular Filtration Rate Calc 44 >90 mL/min BUN/Creatinine Ratio 14.5 10.0-20.0 Serum Glucose 84 74-106 mg/dL Calcium Level 8.1 L 8.7-10.4 mg/dL Total Bilirubin 0.7 0.2-1.0 mg/dL Aspartate Amino Transferase (AST) 31 13-40 U/L Alanine Aminotransferase (ALT) 20 7-40 U/L Alkaline Phosphatase 88 46-116 U/L Total Protein 6.7 5.7-8.2 g/dL Albumin 3.0 L 3.2-4.8 g/dL Lactic Acid Level 1.6 0.4-2.0 mmol/L Troponin I High Sensitivity 11 </=54 ng/L Thyroid Stimulating Hormone (TSH) 6.65 H 0.55-4.78 uIU/mL Eosinophils (%) (Auto) 0.1 0.0-7.0 % Eosinophils # (Auto) 0 0-0.8 10 ^3/uL Basophils # (Auto) 0.1 0-0.2 10 ^3/uL Nucleated Red Blood Cells 0.0 % Prothrombin Time 14.0 H 9.3-11.8 sec Prothrombin Time INR 1.35 H 0.9-1.15 Activated Partial Thromboplast Time 30.6 24.5-34.5 SEC B-Type Natriuretic Peptide 208.84 0-100 pg/mL Assessment Septic shock with pneumonia Acute on chronic hypoxic respiratory failure Likely permanent atrial fibrillation, Stage IV, controlled rate Recent cardiac ablation on 03/07/2024, on xarelto/amiodarone therapy Coronary artery disease status post PTCA x 3DES Hypertension Dyslipidemia MICAELA Plan/Recommendation (Dr. Doan) The patient with c/o generalized weakness, chest pain and SOB is currently with septic shock secondary to PNA. We will continue further cardiac evaluation with a transthoracic echocardiogram to evaluate cardiac function. He underwent a recent cardiac ablation on 03/07/2024 and placed on Xarelto and amiodarone therapy by global mobility specialist. Continue amiodarone and therapeutic Lovenox in the meantime. Transition to Xarelto therapy when appropriate. Given history of CAD including 3DES continue single-antiplatelet therapy and lipid-lowering agent. Re-initiate metoprolol when able to tolerate, currently on vasopressor (titrate off as tolerated). ECGs reviewed with no evidence of acute ischemia, chest pain and SOB most likely secondary to acute PNA. He underwent a non-ischemic c ardiolite stress test 6 months ago. In the setting of an unremarkable echocardiogram, patient is to follow-up with primary EP on 03/31/2024 and primary registered nurse hh case manager as scheduled. There are no invasive cardiac interventions suggested at this time. Thank you for allowing us to participate in this patient's care. Please call if you have any questions or concerns. Critical care time: 45 min. This medical document was created using an electronic medical record system with voice recognition software and computerized dictation system. Although this document has been carefully reviewed, there might still be some phonetic and typographical errors. Occasional wrong-word or ``sound-alike substitutions may have occurred due to the inherent limitations of voice recognition software. These areas are purely typographical due to imperfections of the software programs and do not reflect any compromise in the patient's medical care. Please read the chart carefully and recognize, using context, where these substitutions have occurred. Plan discussed with: Patient, Other Date of Service: Mar 28, 2024 Billing Provider: LUIS DOAN MD Cardiology Common Codes: [id number] CARE 30-74 MIN LUIS DOAN MD 03/30/24 1047: Family History: Diabetes mellitus GRANDMOTHER FHx: hypertension GRANDMOTHER Allergies: Coded Allergies: NO KNOWN ALLERGIES (Unverified , 08/04/19) Home Meds Active Scripts Guaifenesin (Guaifenesin) 200 Mg Tab, 200 MG PO QID for 7 Days, #28 TAB Prov:RIO SULTANA MD 03/07/22 Prednisone (Prednisone) 20 Mg Tab, 20 MG PO BID for 5 Days, #10 TAB Prov:RIO SULTANA MD 03/07/22 Reported Medications Furosemide (Furosemide) 40 Mg Tab, 40 MG PO DAILY for 30 Days 03/02/22 Warfarin Sodium (Warfarin Sodium) 2.5 Mg Tab, 2.5 MG PO DAILY for 30 Days, MG 03/02/22 Fluticasone-Salmeterol (Wixela Inhub 500-50 Mcg/Dose) 1 Aer Aer, 1 AER IN BID, AER 03/02/22 Albuterol Sulfate (Albuterol Sulfate) 0.083 % Neb, 1 VIAL NEB Q6HPRN PRN for SHORTNESS OF BREATH, #50 VIAL 08/05/19 Levothyroxine Sodium (Levothyroxine Sodium) 100 Mcg Tab, 100 MCG PO QAM for 30 Days, MCG 08/05/19 Hydrochlorothiazide (Hydrochlorothiazide) 12.5 Mg Cap, 12.5 MG PO DAILY, MG 08/05/19 Amiodarone Hcl (Amiodarone Hcl) 200 Mg Tab, 200 MG PO DAILY 08/05/19 Atorvastatin Calcium (ATORVASTATIN CALCIUM) 40 Mg Tab, 1 TAB PO HS, #30 TAB 5 Refills 08/05/19 Metoprolol Tartrate (Metoprolol Tartrate) 25 Mg Tab, 25 MG PO BID for 30 Days, MG 09/03/18 Tiotropium [place] Monohydrate (Spiriva Handihaler) 18 Mcg Cap, 18 MCG IN QAM, CAP 08/09/18 Albuterol Sulfate (VENTOLIN MDI) 90 Mcg Ih, 2 PUFF IN TID PRN for SHORTNESS OF BREATH for 30 Days, MCG 08/09/18 Aspirin (Aspir-Low) 81 Mg Tab, 81 MG PO DAILY for 30 Days, MG 08/09/18 Plan/Recommendation I was present with during the history and exam. I discussed the case with the and agree with the findings and plan as documented in the note. RENE VILLALTA Mar 28, 2024 08:36 LUIS DOAN MD Mar 30, 2024 10:47
[2024-03-28] MEDS: cefTRIAXone 1GM/50ML D5W 50 ML IV SCH (09:24)
[2024-03-28] MEDS: SODIUM CHLORIDE 0.9% 1,000 ML IV ONE (09:24)
[2024-03-28 09:37] LABS: Magnesium 1.2 mg/dL (1.6-2.6)
[2024-03-28] MEDS: ENOXAPARIN SOD 100 MG/1 ML SYRINGE SC SCH (10:19)
[2024-03-28] MEDS: ASPirin 81 mg TAB PO SCH (10:20)
[2024-03-28] MEDS: AMIODARONE HCL 200 MG TAB PO SCH (10:20)
[2024-03-28] MEDS: FUROSEMIDE 20 MG/2 ML VIAL IV SCH (10:20)
[2024-03-28] MEDS: AZITHROMYCIN 500MG/ 250ML 250 ML IV SCH (10:28)
[2024-03-28 10:46] LABS: Rapid Influenza A Negative (Negative); Rapid Influenza B Negative (Negative)
[2024-03-28 11:08] LABS: COVID19 ANTIGEN SOFIA FIA NEGATIVE (NEGATIVE)
--- NOTE | 2024-03-28 11:10 | DVHSR ---
APPROVED REPORT EXAM: Two-dimensional and M-mode echocardiogram with Doppler and color Doppler. Blood Pressure: 119/41 mmHg INDICATION ELEVATED BNP RISK FACTORS Height: 6'0, Weight: 195 DIMENSIONS LVDd4.4 (3.8-5.7cm)LA (2D)3.7 (1.9-4.0cm)Aortic Root3.6 (2.0-3.7cm) LVDs3.2 (2.5-4.0cm)LA (MM) (1.9-4.0cm)Aortic Cusp Exc1.8 (1.5-2.0cm) EF (%) 60.0 (55-70%)Rt. Atrium3.8 (1.9-4.0cm)Asc. Aorta cm IVSd1.0 (0.7-1.1cm)RV (D) (1.8-2.4cm) PWd1.1 (0.7-1.1cm) Mitral Valve MitralMitral Stenosis E/A ratio0.02D MVAcm2 Aortic Valve Aortic ValveAortic Stenosis V11.29m/Tabby Mean GR.8mmHg V21.88m/Tabby Peak GR.14mmHg LVOT Diameter2.4 (1.8-2.4cm)Doppler AVA3.10cm2 Tricuspid Valve TR Velocity2.65m/s [id number] LEFT VENTRICLE Normal left ventricular size. Wall thickness is normal. Ejection fraction is normal and is estimate d at 60% based on visual estimate. There is no gross wall motion abnormalities but endocardial defin ition is suboptimal. Diastolic function is indeterminate. RIGHT VENTRICLE The right ventricle is likely mildly dilated in size. Right ventricular systolic function is normal. ATRIA Both atria are likely of normal size. MITRAL VALVE Mitral valve is normal structure and function. No significant mitral regurgitation. PULMONIC VALVE Not well visualized. TRICUSPID VALVE Normal structure and function. There is trace tricuspid regurgitation. PA systolic pressure is michael mated at 35 mm Hg. AORTIC VALVE Leaflets appear to be mildly calcified. No hemodynamically significant stenosis or regurgitation. GREAT VESSELS Aortic root is of normal size. Proximal ascending aorta is not well visualized. PERICARDIAL EFFUSION No significant pericardial effusion. IVC is of normal size and collapses normally with inspiration. Other Information Quality : Technically LimitedRhythm : Technically limited study due to patient position.body habitus. Conclusion The study is technically limited. Normal left ventricular size and systolic function. Right ventricle is likely mildly dilated in size with normal systolic function. Mildly calcified aortic valve with no significant stenosis. PA systolic pressure is estimated at 35 mm Hg. No pericardial effusion.
[2024-03-28 11:13] LABS: Urine Bacteria FEW /hpf (None Seen); Urine Blood 2+ /uL (Negative); Urine Clarity Turbid (Clear); Urine Color Light-Yellow (Yellow); Urine Hyaline Cast FEW /lpf (0 - 2); Urine Protein, UAD TRACE (Negative); Urine Squamous Epithelial Cell FEW /hpf (<5); Urine Urobilinogen Normal (Negative); Urine WBC 100 /hpf (0 - 3); Urine pH 5.5 (5.0-9.0)
[2024-03-28] MEDS ORDERED: VANCOMYCIN PER PHARMACY 0 MG IV SCH (12:00)
[2024-03-28] MEDS: methylPREDNISolone SOD SUCC 40 MG/ML VL IV ONE (12:18)
[2024-03-28] MEDS: VANCOMYCIN 1.25GM/250ML 250 ML IV ONE (12:18)
--- NOTE | 2024-03-28 13:42 | DVHPN2 ---
Subjective sitting up in bed/coughing periodically/denies any pain Changes from previous H/P or p: No Changes Eyes: No Pain, No Vision change, No Conjunctivae inflammation, No Eyelid inflammation, No Other, No Redness ENT: No Ear pain, No Ear discharge, No Nose pain, No Nose discharge, No Nose congestion, No Mouth pain, No Mouth swelling, No Throat pain, No Throat swelling, No Other Cardiovascular: Chest Pain; No Palpitations, No Orthopnea, No Paroxysmal Noc. Dyspnea, No Edema, No Lt Headedness, No Other Respiratory: No Cough, No Dry; Shortness of breath, SOB with excertion; No Wheezing, No Hemoptysis, No Pleuritic Pain, No Sputum; Other (SOB at rest) Gastrointestinal: No Nausea, No Vomiting, No Abdominal Pain, No Diarrhea, No Constipation, No Melena, No Hematochezia, No Other Genitourinary: No Dysuria, No Frequency, No Incontinence, No Hematuria, No Retention, No Other Musculoskeletal: No other, No neck pain, No shoulder pain, No arm pain, No back pain, No hand pain, No leg pain, No foot pain Skin: No Rash, No Lesions, No Jaundice, No Bruising, No Other Objective Vitals Vital Signs Date Time Temp Pulse Resp B/P (MAP) Pulse Ox O2 Delivery O2 Flow Rate FiO2 03/28/24 12:00 94 03/28/24 11:45 20 91/53 (66) 96 03/28/24 07:40 Nasal Cannula* 4 36 03/27/24 23:30 98.2 98.2 Intake/Output Intake and Output 03/28/24 07:00 Intake Total 300 ml Balance 300 ml Intake IV Total 300 ml General Appearance: Alert, Oriented X3, Cooperative, No acute distress Lungs: Clear to auscultation, Normal air movement, Other (scattered wheeze) Cardiovascular: Regular rate, Normal S1, Normal S2 Abdomen: Normal bowel sounds, Soft, No tenderness, No hepatospenomegaly Neuro: Normal gait, Normal speech, Strength at 5/5 X4 ext, Normal tone, S ensation intact, Cranial nerves 3-12 NL Medications Current Medications Medications Dose Ordered Sig/Saige Route Start Time Stop Time Status Last Admin Dose Admin Albuterol 2.5 mg Q4HPRN PRN NEB 03/27/24 21:45 03/28/24 01:40 2.5 MG Ipratropium [place] 0.5 mg Q4HPRN PRN NEB 03/27/24 21:45 03/28/24 01:40 0.5 MG Levothyroxine Sodium 100 mcg QAM@0600 PO 03/28/24 06:00 03/28/24 06:06 100 MCG Aspirin 81 mg DAILY PO 03/28/24 10:00 03/28/24 10:20 81 MG Furosemide 20 mg DAILY IV 03/28/24 10:00 03/28/24 10:20 20 MG Azithromycin 250 ml @ 125 mls/hr DAILY IV 03/28/24 10:00 03/28/24 10:28 125 MLS/HR Ceftriaxone Sodium 50 ml @ 100 mls/hr DAILY@09 IV 03/28/24 09:00 03/28/24 09:24 100 MLS/HR Sodium Chloride 10 ml Q8HR IV 03/27/24 22:00 03/28/24 06:03 10 ML Acetaminophen/ Hydrocodone Bitart 1 tab Q4HP PRN PO 03/27/24 21:45 Docusate Sodium 100 mg BIDPRN PRN PO 03/27/24 21:45 Acetaminophen 650 mg Q6HP PRN PO 03/27/24 21:45 Norepinephrine Bitartrate 250 ml @ 3.75 mls/hr Q24H IV 03/28/24 04:30 03/28/24 04:28 3.75 MLS/HR Atorvastatin Calcium 40 mg HS PO 03/28/24 22:00 Enoxaparin Sodium 90 mg Q12HR SC 03/28/24 10:00 03/28/24 10:19 90 MG Amiodarone HCl 200 mg Q12HR PO 03/28/24 10:00 03/28/24 10:20 200 MG Vancomycin HCl 0 ml @ 0 mls/hr UD IV 03/28/24 12:00 Methylprednisolone Sodium Succinate 40 mg Q8HR IV 03/28/24 22:00 Tamsulosin HCl 0.4 mg QPM PO 03/28/24 18:00 Laboratory Results Laboratory Tests 03/28/24 04:50 Chemistry Test 03/27/24 18:47 03/28/24 04:50 Albumin 3.2 g/dL (3.2-4.8) 3.0 g/dL (3.2-4.8) L Calcium Level 8.3 mg/dL (8.7-10.4) L 8.1 mg/dL (8.7-10.4) L Total Protein 7.3 g/dL (5.7-8.2) 6.7 g/dL (5.7-8.2) Magnesium Level 1.2 mg/dL (1.6-2.6) L Coagulation Test 03/27/24 18:47 Prothrombin Time 14.0 sec (9.3-11.8) H Prothrombin Time INR 1.35 (0.9-1.15) H Activated Partial Thromboplast Time 30.6 SEC (24.5-34.5) Lipid panel Test 03/28/24 04:50 Cholesterol Level 85 mg/dL (< 200) HDL Cholesterol 42 mg/dL (40-59) Triglycerides Level 30 mg/dL (< 150) Cardiac Markers Test 03/27/24 18:47 B-Type Natriuretic Peptide 208.84 pg/mL (0-100) LFT Test 03/27/24 18:47 03/28/24 04:50 Alanine Aminotransferase (ALT) 21 U/L (7-40) 20 U/L (7-40) Alkaline Phosphatase 114 U/L (46-116) 88 U/L (46-116) Aspartate Amino Transferase (AST) 22 U/L (13-40) 31 U/L (13-40) Total Bilirubin 0.5 mg/dL (0.2-1.0) 0.7 mg/dL (0.2-1.0) HgA1c, TSH Test 03/27/24 19:28 03/28/24 04:50 Thyroid Stimulating Hormone (TSH) 6.65 uIU/mL (0.55-4.78) H Hemoglobin A1c 5.2 % A1C (<5.7) Urinalysis Test 03/28/24 10:22 Urine Color Light-yellow (Yellow) Urine Clarity Turbid (Clear) H Urine pH 5.5 (5.0-9.0) Urine Specific [place] 1.010 (1.001-1.035) Urine Protein Trace (Negative) H Urine Ketones Negative (Negative) Urine Blood 2+ /uL (Negative) H Urine Nitrite Negative (Negative) Urine Bilirubin Negative (Negative) Urine Urobilinogen Normal mg/dL (Negative) Urine Leukocyte Esterase 3+ /uL (Negative) Urine RBC 3 /hpf (0 - 3) Urine WBC 100 /hpf (0 - 3) Urine Squamous Epithelial Cells Few /hpf (<5) Urine Bacteria Few /hpf (None Seen) H Urine Hyaline Casts Few /lpf (0 - 2) Urine Glucose Normal mg/dL (Normal) Labs and/or images reviewed: Labs reviewed by me, Image(s) reviewed by me Assessment/Plan Assessment/Plan pneumonia/community acquired copd exacerbation cad- stable atrial fibrillation bph- check bladder scan/add flomax Plan discussed with: Patient, Other My Orders Orders - AB BOURNE MD Procedure Category Date Status Time Vancomycin Per PHA 03/28/24 In Process Pharmacy 12:00 Obtain Sputum Within CHASE 03/28/24 In Process 45 Min 11:49 Complete Blood Count LAB 03/29/24 Verified 04:00 Basic Metabolic Panel LAB 03/29/24 Verified 04:00 Methylprednisolone PHA 03/28/24 In Process Sod Succ (Solu Medrol 22:00 Tamsulosin PHA 03/28/24 In Process Hydrochloride (Flomax) 18:00 Bladder Scan ED NURSING 03/28/24 Transmitted Date of Service: Mar 28, 2024 Billing Provider: AB BOURNE MD Common Visit Codes: [id number] INP/OBS CARE(HIGH) AB BOURNE MD Mar 28, 2024 13:41
[2024-03-28] MEDS: HYDROcodone-ACET 5/325MG TAB PO PRN (16:36)
--- NOTE | 2024-03-28 17:14 | DVHNC2 ---
Procedure - Procedure Note Pre-op. Diagnosis:1.Urethral Stricture2.Recurrent UTIs3.Urinary Retention Post-op. Diagnosis:1.Same as pre-op diagnosis Operation:1.Cystoscopy2.Urethral Dilatation3.Difficult Castano Catheter Placement over wire Anesthesia:LocalIndications:Indications, risks, complications, alternatives and benefits of bedside cystoscopy and above mentioned procedures were discussed with patient. All questions were encouraged and answered. Other options of management were informed. He consented to proceed. Details of Procedure:After prepping and draping the patient in the supine position, a flexible cystoscope was assembled and urethroscopy was done during which it was noted that patient has dense mid urethral strictures. I was able to pass the cystoscope up to the urethral stricture at which point a < 6 Fr urethral stricture was identified. A sensor tip guide wire was advanced past the stricture and the cystoscope was removed. At this point, sequential dilatation of the urethra was done with the Bard kit urethral dilators starting from 14Fr to 18 Fr without difficulty. Upon completion, a 16Fr Counsil tip catheter was inserted over the sensor tip wire . Bladder and prostate uretha were not evaulated. The Castano was left to drainage and continuous bladder irrigation was started. Specimens:None Complications:None Findings:Mid Urethral [id number] Counsil tip catheter placed over guidewire Notes:Repeat full cystoscopy in 3 weeks for evaluation of bladder and prostate ign off status: Completed ELOISA HILTON MD Mar 28, 2024 17:14
--- NOTE | 2024-03-28 17:18 | DVHINCON2 ---
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 Patient gives history of recurrent UTIs. He is admitted for atrial fib.and is on Xarelto Past Medical History as per H&P Family History: Diabetes mellitus GRANDMOTHER FHx: hypertension GRANDMOTHER Allergies: Coded Allergies: NO KNOWN ALLERGIES (Unverified , 08/04/19) Home Meds Active Scripts Guaifenesin (Guaifenesin) 200 Mg Tab, 200 MG PO QID for 7 Days, #28 TAB Prov:RIO SULTANA MD 03/07/22 Prednisone (Prednisone) 20 Mg Tab, 20 MG PO BID for 5 Days, #10 TAB Prov:RIO SULTANA MD 03/07/22 Reported Medications Furosemide (Furosemide) 40 Mg Tab, 40 MG PO DAILY for 30 Days 03/02/22 Warfarin Sodium (Warfarin Sodium) 2.5 Mg Tab, 2.5 MG PO DAILY for 30 Days, MG 03/02/22 Fluticasone-Salmeterol (Wixela Inhub 500-50 Mcg/Dose) 1 Aer Aer, 1 AER IN BID, AER 03/02/22 Albuterol Sulfate (Albuterol Sulfate) 0.083 % Neb, 1 VIAL NEB Q6HPRN PRN for SHORTNESS OF BREATH, #50 VIAL 08/05/19 Levothyroxine Sodium (Levothyroxine Sodium) 100 Mcg Tab, 100 MCG PO QAM for 30 Days, MCG 08/05/19 Hydrochlorothiazide (Hydrochlorothiazide) 12.5 Mg Cap, 12.5 MG PO DAILY, MG 08/05/19 Amiodarone Hcl (Amiodarone Hcl) 200 Mg Tab, 200 MG PO DAILY 08/05/19 Atorvastatin Calcium (ATORVASTATIN CALCIUM) 40 Mg Tab, 1 TAB PO HS, #30 TAB 5 Refills 08/05/19 Metoprolol Tartrate (Metoprolol Tartrate) 25 Mg Tab, 25 MG PO BID for 30 Days, MG 09/03/18 Tiotropium [place] Monohydrate (Spiriva Handihaler) 18 Mcg Cap, 18 MCG IN QAM, CAP 08/09/18 Albuterol Sulfate (VENTOLIN MDI) 90 Mcg Ih, 2 PUFF IN TID PRN for SHORTNESS OF BREATH for 30 Days, MCG 08/09/18 Aspirin (Aspir-Low) 81 Mg Tab, 81 MG PO DAILY for 30 Days, MG 08/09/18 Current Medications Current Medications Medications (Trade) Dose Ordered Sig/Saige Route PRN Reason Start Time Stop Time Status Last Admin Albuterol (Ventolin Medneb) 2.5 mg Q4HPRN PRN NEB SHORTNESS OF BREATH 03/27/24 21:45 03/28/24 01:40 Ipratropium [place] (Atrovent Medneb) 0.5 mg Q4HPRN PRN NEB SHORTNESS OF BREATH 03/27/24 21:45 03/28/24 01:40 Levothyroxine Sodium (Synthroid Tablet) 100 mcg QAM@0600 PO 03/28/24 06:00 03/28/24 06:06 Aspirin 81 mg DAILY PO 03/28/24 10:00 03/28/24 10:20 Furosemide (Lasix Injection) 20 mg DAILY IV 03/28/24 10:00 03/28/24 10:20 Warfarin Sodium (Coumadin Per Rx Protocol) RX PROTOCOL PER PHARMACY PO 03/27/24 21:45 03/28/24 08:41 DC Azithromycin 250 ml @ 125 mls/hr DAILY IV 03/28/24 10:00 03/28/24 10:28 Ceftriaxone Sodium 50 ml @ 100 mls/hr DAILY@09 IV 03/28/24 09:00 03/28/24 09:24 Atorvastatin Calcium (Lipitor) 20 mg HS PO 03/27/24 22:00 03/28/24 08:41 DC 03/27/24 22:38 Sodium Chloride (Saline Lock Ns) 10 ml Q8HR IV 03/27/24 22:00 03/28/24 14:09 Acetaminophen/ Hydrocodone Bitart ([place] 5/325MG Tab) 1 tab Q4HP PRN PO MODERATE PAIN (4-6 PAIN SCALE) 03/27/24 21:45 03/28/24 16:36 Ondansetron HCl (Zofran) 4 mg Q4HP PRN IV NAUSEA / VOMITING 03/27/24 21:45 03/28/24 11:52 DC 03/28/24 08:11 Docusate Sodium (Colace Capsule) 100 mg BIDPRN PRN PO FOR CONSTIPATION 03/27/24 21:45 Acetaminophen (Tylenol Tablet) 650 mg Q6HP PRN PO PAIN SCALE 1-3 OR TEMP>100.4 03/27/24 21:45 Carvedilol (Coreg Tablet) 3.125 mg Q12HR PO 03/27/24 22:00 03/28/24 08:41 DC Nitroglycerin (Ntrostat Sublingual) 0.4 mg Q5MINP PRN SL FOR CHEST PAIN 03/27/24 22:15 03/28/24 11:52 DC Morphine Sulfate 2 mg Q30M PRN IV FOR CHEST PAIN 03/27/24 22:15 03/28/24 11:52 DC 03/28/24 08:12 Midodrine (Proamatine Tablet) 10 mg TID@0600,1200,1800 PO 03/28/24 06:00 03/28/24 08:41 DC 03/28/24 06:06 Norepinephrine Bitartrate 250 ml @ 3.75 mls/hr Q24H IV 03/28/24 04:30 03/28/24 04:28 Atorvastatin Calcium (Lipitor) 40 mg HS PO 03/28/24 22:00 Enoxaparin Sodium (Lovenox) 90 mg Q12HR SC 03/28/24 10:00 03/28/24 10:19 Amiodarone HCl (Cordarone Tablet) 200 mg Q12HR PO 03/28/24 10:00 03/28/24 10:20 Vancomycin HCl 0 ml @ 0 mls/hr UD IV 03/28/24 12:00 Methylprednisolone Sodium Succinate (Solu Medrol) 40 mg Q8HR IV 03/28/24 22:00 Tamsulosin HCl (Flomax) 0.4 mg QPM PO 03/28/24 18:00 Vancomycin HCl 250 ml @ 200 mls/hr Q20H IV 03/29/24 08:00 Vital Signs Vital Signs Date Time Temp Pulse Resp B/P (MAP) Pulse Ox O2 Delivery O2 Flow Rate FiO2 03/28/24 17:00 99/41 03/28/24 15:45 98 20 92 03/28/24 07:40 Nasal Cannula* 4 36 03/27/24 23:30 98.2 98.2 Physical Exam : circumcised phallus Labs/Diagnostic Data Labs Test 03/28/24 10:22 03/28/24 08:34 03/28/24 04:50 03/28/24 02:55 Range/Units Urine Color Light-yellow Yellow Urine Clarity Turbid H Clear Urine pH 5.5 5.0-9.0 Urine Specific [place] 1.010 1.001-1.035 Urine Protein Trace H Negative Urine Ketones Negative Negative Urine Blood 2+ H Negative /uL Urine Nitrite Negative Negative Urine Bilirubin Negative Negative Urine Urobilinogen Normal Negative mg/dL Urine Leukocyte Esterase 3+ Negative /uL Urine RBC 3 0 - 3 /hpf Urine WBC 100 0 - 3 /hpf Urine Squamous Epithelial Cells Few <5 /hpf Urine Bacteria Few H None Seen /hpf Urine Hyaline Casts Few 0 - 2 /lpf Urine Glucose Normal Normal mg/dL Influenza Type A Antigen Negative Negative Influenza Type B Antigen Negative Negative SARS-CoV-2 Antigen (Rapid) Negative NEGATIVE White Blood Count 23.6 H 4.4-10.8 10^3/uL Red Blood Count 3.36 L 4.5-5.90 10^6/uL Hemoglobin 9.4 L 13.5-17.5 g/dL Hematocrit 28.9 L 41.0-53.0 % Mean Corpuscular Volume 86.0 80.0-100.0 fL Mean Corpuscular Hemoglobin 28.0 28.0-32.0 pg Mean Corpuscular Hemoglobin Concent 32.6 32.0-36.0 g/dL Red Cell Distribution Width 16.9 H 11.8-14.3 % Platelet Count 301 140-450 10^3/uL Mean Platelet Volume 6.8 L 6.9-10.8 fL Neutrophils (%) (Auto) 37.0-80.0 % Lymphocytes (%) (Auto) 10.0-50.0 % Monocytes (%) (Auto) 0.0-12.0 % Basophils (%) (Auto) 0.0-2.0 % Neutrophils # (Auto) 1.6-8.6 10 ^3/uL Lymphocytes # (Auto) 0.4-5.4 10 ^3/uL Monocytes # (Auto) 0-1.3 10 ^3/uL Differential Total Cells Counted 100.0 100 Neutrophils % (Manual) 73 37.0-80.0 Band Neutrophils % (Manual) 15 Lymphocytes % (Manual) 7 L 10.0-50.0 Monocytes % (Manual) 5 0-12 Eosinophils % (Manual) 0 0-7 Basophils % (Manual) 0 0.0-2.0 Metamyelocytes % (manual) 0 Myelocytes % (Manual) 0 Promyelocytes % (Manual) 0 Blast Cells % (Manual) 0 Reactive Lymphocytes 0 Platelet Estimate Adequate Sodium Level 132 L 136-145 mmol/L Potassium Level 3.9 3.5-5.1 mmol/L Chloride Level 100 98-107 mmol/L Carbon Dioxide Level 26 20-31 mmol/L Anion Gap 6 5-15 Blood Urea Nitrogen 24 H 9-23 mg/dL Creatinine 1.66 H 0.700-1.30 mg/dL Glomerular Filtration Rate Calc 44 >90 mL/min BUN/Creatinine Ratio 14.5 10.0-20.0 Serum Glucose 84 74-106 mg/dL Hemoglobin A1c 5.2 <5.7 % A1C Calcium Level 8.1 L 8.7-10.4 mg/dL Magnesium Level 1.2 L 1.6-2.6 mg/dL Total Bilirubin 0.7 0.2-1.0 mg/dL Aspartate Amino Transferase (AST) 31 13-40 U/L Alanine Aminotransferase (ALT) 20 7-40 U/L Alkaline Phosphatase 88 46-116 U/L Total Protein 6.7 5.7-8.2 g/dL Albumin 3.0 L 3.2-4.8 g/dL Triglycerides Level 30 < 150 mg/dL Cholesterol Level 85 < 200 mg/dL LDL Cholesterol 33 < 100 mg/dL HDL Cholesterol 42 40-59 mg/dL Lactic Acid Level 1.6 0.4-2.0 mmol/L Test 03/27/24 19:28 03/27/24 18:47 Range/Units Troponin I High Sensitivity 11 </=54 ng/L Thyroid Stimulating Hormone (TSH) 6.65 H 0.55-4.78 uIU/mL Eosinophils (%) (Auto) 0.1 0.0-7.0 % Eosinophils # (Auto) 0 0-0.8 10 ^3/uL Basophils # (Auto) 0.1 0-0.2 10 ^3/uL Nucleated Red Blood Cells 0.0 % Prothrombin Time 14.0 H 9.3-11.8 sec Prothrombin Time INR 1.35 H 0.9-1.15 Activated Partial Thromboplast Time 30.6 24.5-34.5 SEC B-Type Natriuretic Peptide 208.84 0-100 pg/mL Assessment USD Plan/Recommendation Bedside cystoscopy with urethral dilation and Castano placement done. Castano x 3 weeks Outpatient follow up in clinic for cystoscopy with calibration in 3-4 weeks Urine culture Renal US PSA Plan discussed with: Patient, Other ELOISA LUNA MD Mar 28, 2024 17:18
--- NOTE | 2024-03-28 18:04 | DVH ---
INDICATION: urinary retention TECHNIQUE: Multiple real-time sonographic images of the kidneys and bladder were obtained. COMPARISON: None FINDINGS: The right kidney measures 11.2 cm in length, which is normal in size. There is normal echogenicity of the right kidney. No hydronephrosis. The left kidney measures 12.1 cm in length, which is normal in size. There is normal echogenicity of the left kidney. No hydronephrosis. Castano catheter within the decompressed urinary bladder. IMPRESSION: 1. Normal sonographic appearance of the kidneys. No hydronephrosis. 2. Castano catheter in place. HS:Y
[2024-03-28] MEDS: TAMSULOSIN HYDROCHLORIDE 0.4 MG CAP PO SCH (18:16)
[2024-03-28] MEDS: methylPREDNISolone SOD SUCC 40 MG/ML VL IV SCH (21:12)
[2024-03-28] MEDS: ATORVASTATIN 20 MG TAB PO SCH (21:13)
[2024-03-29] VITALS (37 sets, daily range): BP systolic 83–119; BP diastolic 33–64; PULSE 81–137; RESP 10–23; TEMP 98.3–98.7; O2SAT 86–99
[2024-03-29 05:49] LABS: Basophils # (auto) 0 10 ^3/uL (0-0.2); Eosinophils # (auto) 0 10 ^3/uL (0-0.8); Hematocrit 29.4 % (41.0-53.0); Hemoglobin 9.6 g/dL (13.5-17.5); Lymphocytes # (auto) 0.5 10 ^3/uL (0.4-5.4); Lymphocytes % (auto) 2.4 % (10.0-50.0); Mean Corpuscular Hemoglobin 27.8 pg (28.0-32.0); Mean Corpuscular Hgb Conc. 32.6 g/dL (32.0-36.0); Mean Corpuscular Volume 85.1 fL (80.0-100.0); Monocytes # (auto) 0.5 10 ^3/uL (0-1.3); Monocytes % (auto) 2.5 % (0.0-12.0); Neutrophils # (auto) 20.4 10 ^3/uL (1.6-8.6); Neutrophils % (auto) 95.1 % (37.0-80.0); Platelet Count (auto) 297 10^3/uL (140-450); Red Blood Cells 3.46 10^6/uL (4.5-5.90); Red Cell Distribution Width 16.3 % (11.8-14.3); White Blood Cell 21.4 10^3/uL (4.4-10.8)
[2024-03-29 06:02] LABS: Anion Gap 6 (5-15); Carbon Dioxide 24 mmol/L (20-31); Chloride 104 mmol/L (98-107); Potassium 3.5 mmol/L (3.5-5.1)
[2024-03-29 06:03] LABS: Calcium 9.2 mg/dL (8.7-10.4)
[2024-03-29 06:23] LABS: Glucose 244 mg/dL (74-106); Sodium 134 mmol/L (136-145)
[2024-03-29 06:25] LABS: BUN/Creatinine Ratio 28.3 (10.0-20.0)
[2024-03-29 06:29] LABS: Blood Urea Nitrogen 47 mg/dL (9-23)
[2024-03-29] MEDS: VANCOMYCIN 1.25GM/250ML 250 ML IV SCH (08:15)
--- NOTE | 2024-03-29 12:38 | DVHPN2 ---
Subjective looks rested/urology help with landa appreciated- Changes from previous H/P or p: No Changes Eyes: No Pain, No Vision change, No Conjunctivae inflammation, No Eyelid inflammation, No Other, No Redness ENT: No Ear pain, No Ear discharge, No Nose pain, No Nose discharge, No Nose congestion, No Mouth pain, No Mouth swelling, No Throat pain, No Throat swelling, No Other Cardiovascular: Chest Pain; No Palpitations, No Orthopnea, No Paroxysmal Noc. Dyspnea, No Edema, No Lt Headedness, No Other Respiratory: No Cough, No Dry; Shortness of breath, SOB with excertion; No Wheezing, No Hemoptysis, No Pleuritic Pain, No Sputum; Other (SOB at rest) Gastrointestinal: No Nausea, No Vomiting, No Abdominal Pain, No Diarrhea, No Constipation, No Melena, No Hematochezia, No Other Genitourinary: No Dysuria, No Frequency, No Incontinence, No Hematuria, No Retention, No Other Musculoskeletal: No other, No neck pain, No shoulder pain, No arm pain, No back pain, No hand pain, No leg pain, No foot pain Skin: No Rash, No Lesions, No Jaundice, No Bruising, No Other Objective Vitals Vital Signs Date Time Temp Pulse Resp B/P (MAP) Pulse Ox O2 Delivery O2 Flow Rate FiO2 03/29/24 11:30 94 16 105/45 (65) 96 03/29/24 07:45 97.5 97.5 03/29/24 07:30 Nasal Cannula* 4 36 Intake/Output Intake and Output 03/29/24 07:00 Intake Total 1141.25 ml Output Total 1000 ml Balance 141.25 ml Intake Oral 400 ml IV Total 741.25 ml Output Urine Total 1000 ml General Appearance: Alert, Oriented X3, Cooperative, No acute distress Lungs: Clear to auscultation, Normal air movement, Other (scattered wheeze) Cardiovascular: Regular rate, Normal S1, Normal S2 Abdomen: Normal bowel sounds, Soft, No tenderness, No hepatospenomegaly Neuro: Normal gait, Normal speech, Strength at 5/5 X4 ext, Normal tone, S ensation intact, Cranial nerves 3-12 NL Medications Current Medications Medications Dose Ordered Sig/Saige Route Start Time Stop Time Status Last Admin Dose Admin Albuterol 2.5 mg Q4HPRN PRN NEB 03/27/24 21:45 03/29/24 07:08 2.5 MG Ipratropium [place] 0.5 mg Q4HPRN PRN NEB 03/27/24 21:45 03/29/24 07:08 0.5 MG Levothyroxine Sodium 100 mcg QAM@0600 PO 03/28/24 06:00 03/29/24 05:47 100 MCG Aspirin 81 mg DAILY PO 03/28/24 10:00 03/29/24 10:07 81 MG Furosemide 20 mg DAILY IV 03/28/24 10:00 03/29/24 10:08 20 MG Azithromycin 250 ml @ 125 mls/hr DAILY IV 03/28/24 10:00 03/29/24 10:09 125 MLS/HR Ceftriaxone Sodium 50 ml @ 100 mls/hr DAILY@09 IV 03/28/24 09:00 03/29/24 09:35 100 MLS/HR Sodium Chloride 10 ml Q8HR IV 03/27/24 22:00 03/29/24 05:44 10 ML Acetaminophen/ Hydrocodone Bitart 1 tab Q4HP PRN PO 03/27/24 21:45 03/28/24 21:13 1 TAB Docusate Sodium 100 mg BIDPRN PRN PO 03/27/24 21:45 Acetaminophen 650 mg Q6HP PRN PO 03/27/24 21:45 Norepinephrine Bitartrate 250 ml @ 3.75 mls/hr Q24H IV 03/28/24 04:30 03/29/24 06:38 18.75 MLS/HR Atorvastatin Calcium 40 mg HS PO 03/28/24 22:00 03/28/24 21:13 40 MG Enoxaparin Sodium 90 mg Q12HR SC 03/28/24 10:00 03/29/24 10:06 90 MG Amiodarone HCl 200 mg Q12HR PO 03/28/24 10:00 03/29/24 10:07 200 MG Vancomycin HCl 0 ml @ 0 mls/hr UD IV 03/28/24 12:00 Methylprednisolone Sodium Succinate 40 mg Q8HR IV 03/28/24 22:00 03/29/24 05:47 40 MG Tamsulosin HCl 0.4 mg QPM PO 03/28/24 18:00 03/28/24 18:16 0.4 MG Vancomycin HCl 250 ml @ 200 mls/hr Q20H IV 03/29/24 08:00 03/29/24 08:15 200 MLS/HR Laboratory Results Laboratory Tests 03/29/24 05:25 Chemistry Test 03/29/24 05:25 Calcium Level 9.2 mg/dL (8.7-10.4) Urinalysis Test 03/28/24 10:22 Urine Color Light-yellow (Yellow) Urine Clarity Turbid (Clear) H Urine pH 5.5 (5.0-9.0) Urine Specific [place] 1.010 (1.001-1.035) Urine Protein Trace (Negative) H Urine Ketones Negative (Negative) Urine Blood 2+ /uL (Negative) H Urine Nitrite Negative (Negative) Urine Bilirubin Negative (Negative) Urine Urobilinogen Normal mg/dL (Negative) Urine Leukocyte Esterase 3+ /uL (Negative) Urine RBC 3 /hpf (0 - 3) Urine WBC 100 /hpf (0 - 3) Urine Squamous Epithelial Cells Few /hpf (<5) Urine Bacteria Few /hpf (None Seen) H Urine Hyaline Casts Few /lpf (0 - 2) Urine Glucose Normal mg/dL (Normal) Microbiology Microbiology Date/Time Source Procedure Growth Status 03/28/24 10:22 Voided Urine Urine Culture - Preliminary Resulted 03/27/24 21:14 Blood Blood Culture - Preliminary NO GROWTH AFTER 24 HOURS OF INCUBATION. 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
[2024-03-29] MEDS: DOXYCYCLINE 100MG/250ML 250 ML IV SCH (16:15)
[2024-03-30] VITALS (7 sets, daily range): BP systolic 124–141; BP diastolic 56–82; PULSE 100–119; RESP 18–20; TEMP 97.6–97.7; O2SAT 96–100
[2024-03-30 07:03] LABS: Basophils # (auto) 0 10 ^3/uL (0-0.2); Basophils % (auto) 0.2 % (0.0-2.0); Eosinophils # (auto) 0 10 ^3/uL (0-0.8); Hemoglobin 8.4 g/dL (13.5-17.5); Lymphocytes # (auto) 0.6 10 ^3/uL (0.4-5.4); White Blood Cell 13.5 10^3/uL (4.4-10.8)
[2024-03-30 07:06] LABS: Hematocrit 25.3 % (41.0-53.0); Lymphocytes % (auto) 4.8 % (10.0-50.0); Mean Corpuscular Hgb Conc. 33.4 g/dL (32.0-36.0); Mean Corpuscular Volume 83.9 fL (80.0-100.0); Monocytes # (auto) 0.6 10 ^3/uL (0-1.3); Monocytes % (auto) 4.2 % (0.0-12.0); Neutrophils # (auto) 12.2 10 ^3/uL (1.6-8.6); Neutrophils % (auto) 90.8 % (37.0-80.0); Platelet Count (auto) 241 10^3/uL (140-450); Red Blood Cells 3.01 10^6/uL (4.5-5.90); Red Cell Distribution Width 16.2 % (11.8-14.3)
[2024-03-30 08:06] LABS: PSA Free 0.4 ng/mL; Prostate Specific Antigen 1.7 ng/mL (0.0-4.0)
--- NOTE | 2024-03-30 11:06 | DVHPN2 ---
Subjective looks rested/urology help with landa appreciated- Changes from previous H/P or p: No Changes Eyes: No Pain, No Vision change, No Conjunctivae inflammation, No Eyelid inflammation, No Other, No Redness ENT: No Ear pain, No Ear discharge, No Nose pain, No Nose discharge, No Nose congestion, No Mouth pain, No Mouth swelling, No Throat pain, No Throat swelling, No Other Cardiovascular: Chest Pain; No Palpitations, No Orthopnea, No Paroxysmal Noc. Dyspnea, No Edema, No Lt Headedness, No Other Respiratory: No Cough, No Dry; Shortness of breath, SOB with excertion; No Wheezing, No Hemoptysis, No Pleuritic Pain, No Sputum; Other (SOB at rest) Gastrointestinal: No Nausea, No Vomiting, No Abdominal Pain, No Diarrhea, No Constipation, No Melena, No Hematochezia, No Other Genitourinary: No Dysuria, No Frequency, No Incontinence, No Hematuria, No Retention, No Other Musculoskeletal: No other, No neck pain, No shoulder pain, No arm pain, No back pain, No hand pain, No leg pain, No foot pain Skin: No Rash, No Lesions, No Jaundice, No Bruising, No Other Objective Vitals Vital Signs Date Time Temp Pulse Resp B/P (MAP) Pulse Ox O2 Delivery O2 Flow Rate FiO2 03/30/24 10:12 127/61 03/30/24 09:08 112 19 100 03/30/24 09:00 Nasal Cannula* 4 36 03/30/24 06:15 97.9 97.9 Intake/Output Intake and Output 03/30/24 07:00 Intake Total 3686.25 ml Output Total 4750 ml Balance -1063.75 ml Intake Oral 2400 ml IV Total 1286.25 ml Output Urine Total 4750 ml General Appearance: Alert, Oriented X3, Cooperative, No acute distress Lungs: Clear to auscultation, Normal air movement, Other (scattered wheeze) Cardiovascular: Regular rate, Normal S1, Normal S2 Abdomen: Normal bowel sounds, Soft, No tenderness, No hepatospenomegaly Neuro: Normal gait, Normal speech, Strength at 5/5 X4 ext, Normal tone, S ensation intact, Cranial nerves 3-12 NL Medications Current Medications Medications Dose Ordered Sig/Saige Route Start Time Stop Time Status Last Admin Dose Admin Albuterol 2.5 mg Q4HPRN PRN NEB 03/27/24 21:45 03/30/24 09:00 2.5 MG Ipratropium [place] 0.5 mg Q4HPRN PRN NEB 03/27/24 21:45 03/30/24 09:00 0.5 MG Levothyroxine Sodium 100 mcg QAM@0600 PO 03/28/24 06:00 03/30/24 06:10 100 MCG Aspirin 81 mg DAILY PO 03/28/24 10:00 03/30/24 10:11 81 MG Furosemide 20 mg DAILY IV 03/28/24 10:00 03/30/24 10:12 20 MG Ceftriaxone Sodium 50 ml @ 100 mls/hr DAILY@09 IV 03/28/24 09:00 03/30/24 09:00 100 MLS/HR Sodium Chloride 10 ml Q8HR IV 03/27/24 22:00 03/30/24 05:50 10 ML Acetaminophen/ Hydrocodone Bitart 1 tab Q4HP PRN PO 03/27/24 21:45 03/28/24 21:13 1 TAB Docusate Sodium 100 mg BIDPRN PRN PO 03/27/24 21:45 Acetaminophen 650 mg Q6HP PRN PO 03/27/24 21:45 Norepinephrine Bitartrate 250 ml @ 3.75 mls/hr Q24H IV 03/28/24 04:30 03/30/24 01:07 7.5 MLS/HR Atorvastatin Calcium 40 mg HS PO 03/28/24 22:00 03/29/24 21:41 40 MG Enoxaparin Sodium 90 mg Q12HR SC 03/28/24 10:00 03/30/24 10:13 90 MG Amiodarone HCl 200 mg Q12HR PO 03/28/24 10:00 03/30/24 10:11 200 MG Vancomycin HCl 0 ml @ 0 mls/hr UD IV 03/28/24 12:00 Methylprednisolone Sodium Succinate 40 mg Q8HR IV 03/28/24 22:00 03/30/24 06:09 40 MG Tamsulosin HCl 0.4 mg QPM PO 03/28/24 18:00 03/29/24 18:09 0.4 MG Vancomycin HCl 250 ml @ 200 mls/hr Q20H IV 03/29/24 08:00 03/30/24 03:47 200 MLS/HR Doxycycline Hyclate 250 ml @ 125 mls/hr Q12H IV 03/29/24 16:15 03/30/24 03:47 125 MLS/HR Laboratory Results Laboratory Tests 03/29/24 05:25 03/30/24 06:52 Urinalysis Test 03/28/24 10:22 Urine Color Light-yellow (Yellow) Urine Clarity Turbid (Clear) H Urine pH 5.5 (5.0-9.0) Urine Specific [place] 1.010 (1.001-1.035) Urine Protein Trace (Negative) H Urine Ketones Negative (Negative) Urine Blood 2+ /uL (Negative) H Urine Nitrite Negative (Negative) Urine Bilirubin Negative (Negative) Urine Urobilinogen Normal mg/dL (Negative) Urine Leukocyte Esterase 3+ /uL (Negative) Urine RBC 3 /hpf (0 - 3) Urine WBC 100 /hpf (0 - 3) Urine Squamous Epithelial Cells Few /hpf (<5) Urine Bacteria Few /hpf (None Seen) H Urine Hyaline Casts Few /lpf (0 - 2) Urine Glucose Normal mg/dL (Normal) Microbiology Microbiology Date/Time Source Procedure Growth Status 03/28/24 10:22 Voided Urine Urine Culture - Preliminary Resulted 03/27/24 21:14 Blood Blood Culture - Preliminary NO GROWTH AFTER 48 HOURS OF INCUBATION. Resulted Labs and/or images reviewed: Labs reviewed by me, Image(s) reviewed by me Assessment/Plan Assessment/Plan pneumonia/community acquired/slow recovery- states was awaiting op bronch as w/u consult pulmonary copd exacerbation cad- stable atrial fibrillation/H/O RECENT ABLATION bph-/urethral stricture- had landa placed by urology Plan discussed with: Patient, Other My Orders Orders - AB BOURNE MD Procedure Category Date Status Time Chest Two Views XY 03/30/24 Logged Routine 06:00 Doxycycline PHA 03/29/24 In Process 100mg/250ml 16:15 Date of Service: Mar 30, 2024 Billing Provider: AB BOURNE MD Common Visit Codes: [id number] INP/OBS CARE(HIGH) AB BOURNE MD Mar 30, 2024 11:06
--- NOTE | 2024-03-30 18:06 | DVH ---
CHEST RADIOGRAPH Indication: FOLLOW UP PNA Technique: Single frontal view of the chest was obtained Comparison: XY CHEST PORTABLE on DOS: 03/27/24, CHEST PORTABLE on DOS: 02/28/22, CHEST PORTABLE on DOS: 08/04/19, XY CHEST PORTABLE on DOS: 03/27/24 FINDINGS: Lines and Tubes: None Lungs: Retrocardiac opacity may reflect pneumonia or aspiration Pleura: Small left pleural effusion. No pneumothorax. Cardiomediastinal contours: Unremarkable Bones: Unremarkable IMPRESSION: 1. Retrocardiac opacity may reflect pneumonia or aspiration. 2. Small left pleural effusion
--- NOTE | 2024-03-30 23:38 | DVHINCON2 ---
Date of service: Mar 30, 2024 Referring Physician Elsy Malik MD Reason for Consultation Acute hypoxic respiratory failure, pleural effusion, pneumonia History of Present Illness A 73-year-old man with past medical history of AFib, Coronary artery disease, COPD, myocardial infarction, pulmonary embolism, and hyperlipidemia who presented to ED on 03/27/24 with complaint of chest pain. Patient is s/p cardiac ablation at [facility] 2 weeks ago. He c/o sudden onset of substernal chest pain described as anginal-like sensation, nonradiating, racing heart rate, shortness of breath getting worse that prompted this visit. Workup in ED noted WBC of 22.0, hemoglobin 10.2, hematocrit 30.5, platelets 309, sodium 135, potassium 3.9, BUN 23, creatinine 1.54, GFR 48, troponin 11, glucose 100, B [employer] 208.84. O2 saturation was 96% on oxygen. Chest x-ray revealed retrocardiac opacity may reflect pneumonia/aspiration, small left pleural effusion. Patient was admitted for further care and pulmonary consultation is requested for evaluation and management due to these findings. Review of Systems: 14-point review of systems negative unless otherwise noted above. Past Medical History: AFib, Coronary artery disease, COPD, myocardial infarction, pulmonary embolism, and hyperlipidemia Past Surgical History: PTCA, Tonsillectomy Medications: Reviewed. Allergies: No known drug allergies. Family History: DM and hypertension. Social History: Nonsmoker. No alcohol or illicit drug use. Family History: Diabetes mellitus GRANDMOTHER FHx: hypertension GRANDMOTHER Allergies: Coded Allergies: NO KNOWN ALLERGIES (Unverified , 08/04/19) Home Meds Active Scripts Guaifenesin (Guaifenesin) 200 Mg Tab, 200 MG PO QID for 7 Days, #28 TAB Prov:RIO SULTANA MD 03/07/22 Prednisone (Prednisone) 20 Mg Tab, 20 MG PO BID for 5 Days, #10 TAB Prov:RIO SULTANA MD 03/07/22 Reported Medications Furosemide (Furosemide) 40 Mg Tab, 40 MG PO DAILY for 30 Days 03/02/22 Warfarin Sodium (Warfarin Sodium) 2.5 Mg Tab, 2.5 MG PO DAILY for 30 Days, MG 03/02/22 Fluticasone-Salmeterol (Wixela Inhub 500-50 Mcg/Dose) 1 Aer Aer, 1 AER IN BID, AER 03/02/22 Albuterol Sulfate (Albuterol Sulfate) 0.083 % Neb, 1 VIAL NEB Q6HPRN PRN for SHORTNESS OF BREATH, #50 VIAL 08/05/19 Levothyroxine Sodium (Levothyroxine Sodium) 100 Mcg Tab, 100 MCG PO QAM for 30 Days, MCG 08/05/19 Hydrochlorothiazide (Hydrochlorothiazide) 12.5 Mg Cap, 12.5 MG PO DAILY, MG 08/05/19 Amiodarone Hcl (Amiodarone Hcl) 200 Mg Tab, 200 MG PO DAILY 08/05/19 Atorvastatin Calcium (ATORVASTATIN CALCIUM) 40 Mg Tab, 1 TAB PO HS, #30 TAB 5 Refills 08/05/19 Metoprolol Tartrate (Metoprolol Tartrate) 25 Mg Tab, 25 MG PO BID for 30 Days, MG 09/03/18 Tiotropium [place] Monohydrate (Spiriva Handihaler) 18 Mcg Cap, 18 MCG IN QAM, CAP 08/09/18 Albuterol Sulfate (VENTOLIN MDI) 90 Mcg Ih, 2 PUFF IN TID PRN for SHORTNESS OF BREATH for 30 Days, MCG 08/09/18 Aspirin (Aspir-Low) 81 Mg Tab, 81 MG PO DAILY for 30 Days, MG 08/09/18 Vital Signs Vital Signs Date Time Temp Pulse Resp B/P (MAP) Pulse Ox O2 Delivery O2 Flow Rate FiO2 03/30/24 21:55 100 18 99 03/30/24 21:45 Nasal Cannula* 4 36 03/30/24 21:00 97.6 141/82 (101) 97.6 Physical Exam Gen.: Patient lying in bed in no apparent distress. On supplemental oxygen. Head: Normocephalic, atraumatic. Eyes: EOMI/PERRLA. Ears: Normal hearing. Normal anatomy. Neck/trachea: Trachea midline, supple. Nose: Normal external anatomy. Mouth: Moist mucous membranes. Chest: Decreased air entry bilaterally. No wheezing or rhonchi. Cardiovascular: Positive S1, positive S2. Regular rate and rhythm. Abdomen: Positive bowel sounds in all 4 quadrants. Soft, non-tender, non-diste nded. : Deferred. Rectal: Deferred. Skin: Warm, dry. Intact. Extremities: 2+ radial pulses bilaterally. No lower extremity edema. Neuro: Awake, alert, oriented x3. No gross motor or sensory deficits. Cranial nerves II through XII intact. Gait not assessed. Labs/Diagnostic Data Labs Test 03/30/24 06:52 03/29/24 05:25 03/28/24 10:22 03/28/24 08:34 Range/Units White Blood Count 13.5 #H 4.4-10.8 10^3/uL Red Blood Count 3.01 L 4.5-5.90 10^6/uL Hemoglobin 8.4 L 13.5-17.5 g/dL Hematocrit 25.3 #L 41.0-53.0 % Mean Corpuscular Volume 83.9 80.0-100.0 fL Mean Corpuscular Hemoglobin 28.0 28.0-32.0 pg Mean Corpuscular Hemoglobin Concent 33.4 32.0-36.0 g/dL Red Cell Distribution Width 16.2 H 11.8-14.3 % Platelet Count 241 140-450 10^3/uL Mean Platelet Volume 6.7 L 6.9-10.8 fL Neutrophils (%) (Auto) 90.8 H 37.0-80.0 % Lymphocytes (%) (Auto) 4.8 L 10.0-50.0 % Monocytes (%) (Auto) 4.2 0.0-12.0 % Eosinophils (%) (Auto) 0.0 0.0-7.0 % Basophils (%) (Auto) 0.2 0.0-2.0 % Neutrophils # (Auto) 12.2 H 1.6-8.6 10 ^3/uL Lymphocytes # (Auto) 0.6 0.4-5.4 10 ^3/uL Monocytes # (Auto) 0.6 0-1.3 10 ^3/uL Eosinophils # (Auto) 0 0-0.8 10 ^3/uL Basophils # (Auto) 0 0-0.2 10 ^3/uL Nucleated Red Blood Cells 0.0 % Creatinine 1.30 0.700-1.30 mg/dL Glomerular Filtration Rate Calc 59 >90 mL/min Vancomycin Level Trough 28.1 H 5-10 ug/mL Sodium Level 134 L 136-145 mmol/L Potassium Level 3.5 3.5-5.1 mmol/L Chloride Level 104 98-107 mmol/L Carbon Dioxide Level 24 20-31 mmol/L Anion Gap 6 5-15 Blood Urea Nitrogen 47 #H 9-23 mg/dL BUN/Creatinine Ratio 28.3 H 10.0-20.0 Serum Glucose 244 #H 74-106 mg/dL Calcium Level 9.2 8.7-10.4 mg/dL Urine Color Light-yellow Yellow Urine Clarity Turbid H Clear Urine pH 5.5 5.0-9.0 Urine Specific [place] 1.010 1.001-1.035 Urine Protein Trace H Negative Urine Ketones Negative Negative Urine Blood 2+ H Negative /uL Urine Nitrite Negative Negative Urine Bilirubin Negative Negative Urine Urobilinogen Normal Negative mg/dL Urine Leukocyte Esterase 3+ Negative /uL Urine RBC 3 0 - 3 /hpf Urine WBC 100 0 - 3 /hpf Urine Squamous Epithelial Cells Few <5 /hpf Urine Bacteria Few H None Seen /hpf Urine Hyaline Casts Few 0 - 2 /lpf Urine Glucose Normal Normal mg/dL Influenza Type A Antigen Negative Negative Influenza Type B Antigen Negative Negative SARS-CoV-2 Antigen (Rapid) Negative NEGATIVE Test 03/28/24 04:50 03/28/24 02:55 03/27/24 19:28 03/27/24 18:47 Range/Units Differential Total Cells Counted 100.0 100 Neutrophils % (Manual) 73 37.0-80.0 Band Neutrophils % (Manual) 15 Lymphocytes % (Manual) 7 L 10.0-50.0 Monocytes % (Manual) 5 0-12 Eosinophils % (Manual) 0 0-7 Basophils % (Manual) 0 0.0-2.0 Metamyelocytes % (manual) 0 Myelocytes % (Manual) 0 Promyelocytes % (Manual) 0 Blast Cells % (Manual) 0 Reactive Lymphocytes 0 Platelet Estimate Adequate Hemoglobin A1c 5.2 <5.7 % A1C Magnesium Level 1.2 L 1.6-2.6 mg/dL Total Bilirubin 0.7 0.2-1.0 mg/dL Aspartate Amino Transferase (AST) 31 13-40 U/L Alanine Aminotransferase (ALT) 20 7-40 U/L Alkaline Phosphatase 88 46-116 U/L Total Protein 6.7 5.7-8.2 g/dL Albumin 3.0 L 3.2-4.8 g/dL Triglycerides Level 30 < 150 mg/dL Cholesterol Level 85 < 200 mg/dL LDL Cholesterol 33 < 100 mg/dL HDL Cholesterol 42 40-59 mg/dL Free Prostate Specific Antigen 0.40 N/A ng/mL Percent Free Prostate Specific Ag 23.5 . % Prostate Specific Antigen Total 1.7 0.0-4.0 ng/mL Lactic Acid Level 1.6 0.4-2.0 mmol/L Troponin I High Sensitivity 11 </=54 ng/L Thyroid Stimulating Hormone (TSH) 6.65 H 0.55-4.78 uIU/mL Prothrombin Time 14.0 H 9.3-11.8 sec Prothrombin Time INR 1.35 H 0.9-1.15 Activated Partial Thromboplast Time 30.6 24.5-34.5 SEC B-Type Natriuretic Peptide 208.84 0-100 pg/mL Microbiology Date/Time Source Procedure Growth Status 03/28/24 10:22 Voided Urine Urine Culture - Final Complete 03/27/24 21:14 Blood Blood Culture - Preliminary NO GROWTH AFTER 72 HOURS OF INCUBATION. Resulted Assessment Impression: Acute hypoxic respiratory failure Dependence on supplemental oxygen Pleural effusion Atelectasis Pneumonia, likely gram negative Abnormal CT chest outside imaging center Ground glass opacities on imaging Plan: Supplemental oxygen 4 LPM NC Titrate to keep O2 sats above 92%. Taper O2 as tolerated. CXR demonstrates Retrocardiac opacity, may reflect pneumonia or aspiration. Small left pleural effusion Patient is s/p cardiac catheterization. Follow up Cardiology recs. Plan to obtain CT chest without contrast. Continue bronchodilators. Continue antibiotics Incentive spirometry Chest pain - Pain control Avoid oversedation Monitor renal function. Monitor electrolytes. Supplement as necessary. Monitor ins and outs. DVT prophylaxis. Prognosis: Poor given patient's multiple co-morbidities. Rest of plan per hospitalist and other consultants. Thank you, Dr. Malik, for allowing me to participate in this patient's care. Further recommendations will depend on the patient's clinical course. Please do not hesitate to contact me if you have any questions or concerns. This medical document was created using an electronic medical record system with [employer] system. Although these documentations are being carefully reviewed, there may still be some phonetic and typographical changes. The errors are purely typographical, due to imperfection on the software program, and do not reflect any compromise in the patient's medical care. Plan discussed with: Patient, Other (KARINA Boone/MD RICH Zhong MD Mar 30, 2024 23:37
[2024-03-31] VITALS (13 sets, daily range): BP systolic 106–134; BP diastolic 43–77; PULSE 89–114; RESP 2–20; TEMP 97.4–98.2; O2SAT 92–99
[2024-03-31 07:38] LABS: Basophils # (auto) 0 10 ^3/uL (0-0.2); Basophils % (auto) 0.2 % (0.0-2.0); Eosinophils # (auto) 0 10 ^3/uL (0-0.8); Hemoglobin 8.9 g/dL (13.5-17.5); Lymphocytes # (auto) 0.8 10 ^3/uL (0.4-5.4); Lymphocytes % (auto) 5.3 % (10.0-50.0); Mean Corpuscular Hgb Conc. 32.9 g/dL (32.0-36.0); Monocytes # (auto) 0.9 10 ^3/uL (0-1.3); Monocytes % (auto) 5.8 % (0.0-12.0); Neutrophils % (auto) 88.7 % (37.0-80.0); Nucleated Red Blood Cells % 0.1 %; Platelet Count (auto) 281 10^3/uL (140-450); Red Blood Cells 3.17 10^6/uL (4.5-5.90); Red Cell Distribution Width 16.2 % (11.8-14.3); White Blood Cell 15.8 10^3/uL (4.4-10.8)
--- NOTE | 2024-03-31 09:13 | DVH ---
Procedure: CT CHEST WITHOUT CONTRAST Reason for study/Clinical History: Chronic cough, retrocardiac opacities, small L pleural effusion Comparison Study: Chest radiograph performed 09/20/2022. Exam Date: 03/31/2024 08:27 AM TECHNIQUE: Multidetector CT of the chest was performed from the lung apices to the upper abdomen with out the use of intravenous contract. Axial, coronal and sagittal multiplanar reformats were performed . Radiation Dose Information: CT Dose: CTDI volume is 15.4 mGy. Dose-length product is 635.81 mGy*cm The dose indicators for CT are the volume Computed Tomography (CT) Dose Index (CTDIvol) and the Dose Length Product (DLP), and are measured in units of mGy and mGy-cm, respectively. These indicators are not patient dose, but values generated from the CT scanner acquisition factors. The report includes radiation exposure data for exposures received during this examination. FINDINGS: Lower neck: Normal thyroid. Lungs: Moderate emphysema. Left lower lobe atelectasis. Right lower lobe atelectasis. Central airways: Patent. Pleura: No pleural effusion or significant pneumothorax. Heart/Vascular Structures: Normal heart size. No pericardial effusion. Normal caliber thoracic aorta and main pulmonary artery. Lymph Nodes: No adenopathy Musculoskeletal: No acute osseous abnormality. Soft tissues: Normal. Upper abdomen: Limited portions of the upper abdomen are unremarkable. IMPRESSION: 1. Right lower and left lower lobe atelectasis. Radiation optimization: All CT scans at this facility use at least one of these dose optimization alexander hniques: automated exposure control mA and/or kV adjustment per patient size (includes targeted exam s where dose is matched to clinical indication) or iterative reconstruction.
--- NOTE | 2024-03-31 10:54 | DVHPN2 ---
Reviewed: Care Plan, H&P, Labs, Medications, Previous Orders, Radiology Changes from previous H/P or p: No Changes Eyes: No Pain, No Vision change, No Conjunctivae inflammation, No Eyelid inflammation, No Other, No Redness ENT: No Ear pain, No Ear discharge, No Nose pain, No Nose discharge, No Nose congestion, No Mouth pain, No Mouth swelling, No Throat pain, No Throat swelling, No Other Cardiovascular: Chest Pain; No Palpitations, No Orthopnea, No Paroxysmal Noc. Dyspnea, No Edema, No Lt Headedness, No Other Respiratory: No Cough, No Dry; Shortness of breath, SOB with excertion; No Wheezing, No Hemoptysis, No Pleuritic Pain, No Sputum; Other (SOB at rest) Gastrointestinal: No Nausea, No Vomiting, No Abdominal Pain, No Diarrhea, No Constipation, No Melena, No Hematochezia, No Other Genitourinary: No Dysuria, No Frequency, No Incontinence, No Hematuria, No Retention, No Other Musculoskeletal: No other, No neck pain, No shoulder pain, No arm pain, No back pain, No hand pain, No leg pain, No foot pain Skin: No Rash, No Lesions, No Jaundice, No Bruising, No Other Objective Vitals Vital Signs Date Time Temp Pulse Resp B/P (MAP) Pulse Ox O2 Delivery O2 Flow Rate FiO2 03/31/24 10:00 94 Nasal Cannula* 4 36 03/31/24 09:48 111 20 106/43 03/31/24 09:00 97.4 97.4 Intake/Output Intake and Output 03/31/24 07:00 Intake Total 580 ml Output Total 3800 ml Balance -3220 ml Intake Oral 280 ml IV Total 300 ml Output Urine Total 3800 ml General Appearance: Alert, Oriented X3, Cooperative, No acute distress Lungs: Clear to auscultation, Normal air movement, Other (scattered wheeze) Cardiovascular: Regular rate, Normal S1, Normal S2 Abdomen: Normal bowel sounds, Soft, No tenderness, No hepatospenomegaly Neuro: Normal gait, Normal speech, Strength at 5/5 X4 ext, Normal tone, S ensation intact, Cranial nerves 3-12 NL Medications Current Medications Medications Dose Ordered Sig/Saige Route Start Time Stop Time Status Last Admin Dose Admin Albuterol 2.5 mg Q4HPRN PRN NEB 03/27/24 21:45 03/30/24 21:45 2.5 MG Ipratropium [place] 0.5 mg Q4HPRN PRN NEB 03/27/24 21:45 03/30/24 21:45 0.5 MG Levothyroxine Sodium 100 mcg QAM@0600 PO 03/28/24 06:00 03/31/24 06:16 100 MCG Aspirin 81 mg DAILY PO 03/28/24 10:00 03/31/24 09:09 81 MG Furosemide 20 mg DAILY IV 03/28/24 10:00 03/31/24 09:08 20 MG Ceftriaxone Sodium 50 ml @ 100 mls/hr DAILY@09 IV 03/28/24 09:00 03/31/24 09:06 100 MLS/HR Sodium Chloride 10 ml Q8HR IV 03/27/24 22:00 03/31/24 06:16 10 ML Acetaminophen/ Hydrocodone Bitart 1 tab Q4HP PRN PO 03/27/24 21:45 03/30/24 21:26 1 TAB Docusate Sodium 100 mg BIDPRN PRN PO 03/27/24 21:45 Acetaminophen 650 mg Q6HP PRN PO 03/27/24 21:45 Norepinephrine Bitartrate 250 ml @ 3.75 mls/hr Q24H IV 03/28/24 04:30 Hold 03/30/24 01:07 7.5 MLS/HR Atorvastatin Calcium 40 mg HS PO 03/28/24 22:00 03/30/24 21:24 40 MG Enoxaparin Sodium 90 mg Q12HR SC 03/28/24 10:00 03/31/24 09:09 90 MG Amiodarone HCl 200 mg Q12HR PO 03/28/24 10:00 03/31/24 09:09 200 MG Vancomycin HCl 0 ml @ 0 mls/hr UD IV 03/28/24 12:00 Methylprednisolone Sodium Succinate 40 mg Q8HR IV 03/28/24 22:00 03/31/24 06:16 40 MG Tamsulosin HCl 0.4 mg QPM PO 03/28/24 18:00 03/30/24 18:55 0.4 MG Vancomycin HCl 250 ml @ 200 mls/hr Q20H IV 03/29/24 08:00 03/31/24 00:40 200 MLS/HR Doxycycline Hyclate 250 ml @ 125 mls/hr Q12H IV 03/29/24 16:15 03/31/24 04:43 125 MLS/HR Laboratory Results Laboratory Tests 03/29/24 05:25 03/30/24 06:52 03/31/24 06:14 Urinalysis Test 03/28/24 10:22 Urine Color Light-yellow (Yellow) Urine Clarity Turbid (Clear) H Urine pH 5.5 (5.0-9.0) Urine Specific Carbon 1.010 (1.001-1.035) Urine Protein Trace (Negative) H Urine Ketones Negative (Negative) Urine Blood 2+ /uL (Negative) H Urine Nitrite Negative (Negative) Urine Bilirubin Negative (Negative) Urine Urobilinogen Normal mg/dL (Negative) Urine Leukocyte Esterase 3+ /uL (Negative) Urine RBC 3 /hpf (0 - 3) Urine WBC 100 /hpf (0 - 3) Urine Squamous Epithelial Cells Few /hpf (<5) Urine Bacteria Few /hpf (None Seen) H Urine Hyaline Casts Few /lpf (0 - 2) Urine Glucose Normal mg/dL (Normal) Microbiology Microbiology Date/Time Source Procedure Growth Status 03/28/24 10:22 Voided Urine Urine Culture - Final Complete 03/27/24 21:14 Blood Blood Culture - Preliminary NO GROWTH AFTER 72 HOURS OF INCUBATION. 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
--- NOTE | 2024-03-31 13:53 | ECG ---
[facility] Test Date: 2024-03-27 Test Time: 17:57:25 Pat Name: JANET CHAN Department: ER Room: 0290T A Gender: M Sap Bobj Developer: ANUP : 1950 Requested By: GUILLE LOPEZ Order Number: [id number] Reading MD: Shmuel Burkett Measurements Intervals [place] Rate: 119 P: 0 [place]: 0 QRS: 87 QRSD: 114 T: -10 QT: 356 QTc: 501 Interpretive Statements Atrial fibrillation Paired ventricular premature complexes Left posterior fascicular block Prolonged QT interval Baseline wander in lead(s) V4 Electronically Signed On 04-01-2024 17:52:01 PST by Shmuel Burkett Please click the below link to view image of tracing.
--- NOTE | 2024-03-31 23:12 | DVHPN2 ---
Progress Note - Dictate Date Seen: Mar 31, 2024 Medical Necessity Reason Pt with a Central, PICC or Fol: No Subjective Patient seen and examined at bedside. Remains on supplemental oxygen Overnight events reviewed. vital signs Vital Sign Date Time Temp Pulse Resp B/P (MAP) Pulse Ox O2 Delivery O2 Flow Rate FiO2 03/31/24 21:00 97.7 109 20 117/56 (76) 95 97.7 03/31/24 19:13 Nasal Cannula 4.0 03/31/24 19:13 36 Total Intake and Output 03/30/24 03/30/24 03/31/24 15:00 23:00 07:00 Intake Total 50 ml 250 ml 280 ml Output Total 1700 ml 2100 ml Balance 50 ml -1450 ml -1820 ml medications Current Medications Medications Dose Ordered Sig/Saige Route Start Time Stop Time Status Last Admin Dose Admin Albuterol 2.5 mg Q4HPRN PRN NEB 03/27/24 21:45 03/31/24 19:13 2.5 MG Ipratropium [place] 0.5 mg Q4HPRN PRN NEB 03/27/24 21:45 03/31/24 19:13 0.5 MG Levothyroxine Sodium 100 mcg QAM@0600 PO 03/28/24 06:00 03/31/24 06:16 100 MCG Aspirin 81 mg DAILY PO 03/28/24 10:00 03/31/24 09:09 81 MG Furosemide 20 mg DAILY IV 03/28/24 10:00 03/31/24 09:08 20 MG Ceftriaxone Sodium 50 ml @ 100 mls/hr DAILY@09 IV 03/28/24 09:00 03/31/24 09:06 100 MLS/HR Sodium Chloride 10 ml Q8HR IV 03/27/24 22:00 03/31/24 21:36 10 ML Acetaminophen/ Hydrocodone Bitart 1 tab Q4HP PRN PO 03/27/24 21:45 03/30/24 21:26 1 TAB Docusate Sodium 100 mg BIDPRN PRN PO 03/27/24 21:45 Acetaminophen 650 mg Q6HP PRN PO 03/27/24 21:45 Norepinephrine Bitartrate 250 ml @ 3.75 mls/hr Q24H IV 03/28/24 04:30 Hold 03/30/24 01:07 7.5 MLS/HR Atorvastatin Calcium 40 mg HS PO 03/28/24 22:00 03/31/24 21:35 40 MG Enoxaparin Sodium 90 mg Q12HR SC 03/28/24 10:00 03/31/24 21:42 90 MG Amiodarone HCl 200 mg Q12HR PO 03/28/24 10:00 03/31/24 21:35 200 MG Vancomycin HCl 0 ml @ 0 mls/hr UD IV 03/28/24 12:00 Methylprednisolone Sodium Succinate 40 mg Q8HR IV 03/28/24 22:00 03/31/24 21:35 40 MG Tamsulosin HCl 0.4 mg QPM PO 03/28/24 18:00 03/31/24 17:36 0.4 MG Vancomycin HCl 250 ml @ 200 mls/hr Q20H IV 03/29/24 08:00 03/31/24 20:49 200 MLS/HR Doxycycline Hyclate 250 ml @ 125 mls/hr Q12H IV 03/29/24 16:15 03/31/24 17:36 125 MLS/HR objective Gen.: Patient lying in bed in no apparent distress. On supplemental oxygen. Head: Normocephalic, atraumatic. Eyes: EOMI/PERRLA. Ears: Normal hearing. Normal anatomy. Neck/trachea: Trachea midline, supple. Nose: Normal external anatomy. Mouth: Moist mucous membranes. Chest: Decreased air entry bilaterally. No wheezing or rhonchi. Cardiovascular: Positive S1, positive S2. Regular rate and rhythm. Abdomen: Positive bowel sounds in all 4 quadrants. Soft, non-tender, non- distended. : Deferred. Rectal: Deferred. Skin: Warm, dry. Intact. Extremities: 2+ radial pulses bilaterally. No lower extremity edema. Neuro: Awake, alert, oriented x3. No gross motor or sensory deficits. Cranial nerves II through XII intact. Gait not assessed. laboratory and microbiology Laboratory Tests 03/31/24 06:14 03/30/24 06:52 03/29/24 05:25 Test 03/29/24 05:25 Range/Units Serum Glucose 244 #H 74-106 mg/dL Assessment/Plan Impression: Acute hypoxic respiratory failure Dependence on supplemental oxygen Pleural effusion Atelectasis Pneumonia, likely gram negative Events: Patient agreed to proceed with bronchoscopy with bronchoalveolar lavage, possible brushings possible biopsy. He was aware of the risks and benefits of the procedure. With full knowledge of the risks and benefits C agreed to proceed with procedure. Patient had an outpatient abnormal CT chest that demonstrated ground-glass opacities. He continues to complain of chronic cough and recurrent pneumonias. CT chest is obtained today and reviewed. Left lower lobe atelectasis. Slight patchy opacities in the right middle lobe as well. Bronchoscopy was planned with BAL for sampling from right middle lobe and left lower lobe. Continue antibiotics Continue bronchodilators Incentive spirometry Cardiology recommendations appreciated. Rest of plan as outlined below. Plan: Supplemental oxygen 4 LPM NC Titrate to keep O2 sats above 92%. Taper O2 as tolerated. CXR demonstrates Retrocardiac opacity, may reflect pneumonia or aspiration. Small left pleural effusion Patient is s/p cardiac catheterization. Follow up Cardiology recs. Plan to obtain CT chest without contrast. Continue bronchodilators. Continue antibiotics Incentive spirometry Chest pain - Pain control Avoid oversedation Monitor renal function. Monitor electrolytes. Supplement as necessary. Monitor ins and outs. DVT prophylaxis. Prognosis: Poor given patient's multiple co-morbidities. Rest of plan per hospitalist and other consultants. Thank you, Dr. Malik, for allowing me to participate in this patient's care. Further recommendations will depend on the patient's clinical course. Please do not hesitate to contact me if you have any questions or concerns. This medical document was created using an electronic medical record system with [employer] dictation system. Although these documentations are being carefully reviewed, there may still be some phonetic and typographical changes. The errors are purely typographical, due to imperfection on the software program, and do not reflect any compromise in the patient's medical care. Plan discussed with: Patient, Other (KARINA Wood MD) RICH PERALTA MD Mar 31, 2024 23:12
[2024-04-01] VITALS (10 sets, daily range): BP systolic 96–110; BP diastolic 46–67; PULSE 89–121; RESP 17–24; TEMP 97.6–98.5; O2SAT 89–97
[2024-04-01] MEDS: DOXYCYCLINE 100MG/250ML 250 ML IV SCH (06:48)
[2024-04-01] MEDS ORDERED: EPINEPHrine HCL 1 MG/1 ML AMP ONE (08:28)
[2024-04-01] MEDS ORDERED: FLUMAZENIL 0.1 MG/ML INJ 10ML MDV IV ONE (08:28)
[2024-04-01] MEDS ORDERED: SODIUM CHLORIDE LOCK 10 ML ONE (08:28)
[2024-04-01] MEDS ORDERED: NALOXONE HCL 0.4 MG/ML VIAL ONE (08:28)
[2024-04-01] MEDS ORDERED: LIDOCAINE 2% JELLY 11ml (GLYDO) ONE (08:28)
[2024-04-01] MEDS ORDERED: LIDOCAINE 2%HCL (LOCAL ANESTH.) INJ 20ML MDV ONE (08:28)
[2024-04-01] MEDS ORDERED: GLYCOPYRROLATE 0.2 MG/ML 1ML VIAL ONE (08:29)
[2024-04-01] MEDS ORDERED: MIDAZOLAM HCL 2MG/2ML 2ml VIAL (1mg/ml) ONE (08:29)
[2024-04-01] MEDS: fentaNYL CITRATE 100 MCG/2 ML VL ONE (09:14)
[2024-04-01] MEDS: MIDAZOLAM HCL 5 MG/ML-1ML VIAL ONE (09:14)
[2024-04-01] MEDS: diphenhdrAMINE HCL 50 MG/1 ML VL ONE (09:14)
[2024-04-01] MEDS ORDERED: IPRATROPIUM BROM 0.5 MG/2.5ML INH SOL NEB PRN (09:45)
--- NOTE | 2024-04-01 09:56 | DVHNC2 ---
Procedure - Bronchoscopy with bronchoalveolar lavage procedure note: Indications: Left lower lobe atelectasis, Possible mucous plugging. Hx abnormal CT chest Medicines: See mica washer gluer notes. Versed 2 mg, Fentanyl 50 mcg, Benadryl 50 mg IVP. Complications: None Procedure: Patient medications and allergies reviewed. The risks and benefits of the procedure and the sedation options and risk were discussed with the patient's healthcare proxy. All questions were answered and informed consent was obtained. Patient identification and proposed procedure were verified prior to the procedure by the physician, and a nurse, and the respiratory therapist in Endoscopy room. The heart rate, respiratory rate, oxygen saturations, blood pressure, adequacy of pulmonary ventilation, and response to care were monitored throughout the procedure. The physical status of the patient was reassessed after the procedure. After obtaining informed consent, the bronchoscope was introduced through the endotracheal tube and advanced into the trachea bronchial tree of both lungs. The procedure was accomplished without difficulty. The patient tolerated the procedure well. Findings: The trachea is in normal caliber. The steve is sharp. The tracheobronchial tree of the right lung was examined to at least the first subsegmental level. The bronchial mucosa and anatomy in the right lung are normal. There are no endobronchial lesions. There was copious whitish secretions from right main stem bronchus onward throughout R1-R10. Mucous plugging removed from R6-R10 Right middle lobe (RML) Bronchoalveolar lavage (BAL) obtained. RML BAL sent for gram stain and culture, viral culture, fungal culture, and AFB smear and culture. Left lower lobe (LLL) Bronchoalveolar lavage (BAL) obtained. LLL BAL sent for gram stain and culture, viral culture, fungal culture, and AFB smear and culture. The left upper lobe, lingula, and left lower lobe were examined to at least the first subsegmental level. Bronchial mucosa and anatomy in the left upper lobe and lingula are normal. There were no endobronchial lesions. There was copious whitish secretions from left main stem bronchus onward throughout L1-L10. Mucous plugging removed from L7-L10. Slight mucosal hemorrhage in left main stem bronchus that resolved with 20 mL cold saline. There was no active bleeding at the completion of the procedure. Estimated blood loss: Less than 5 mL. Impression: Left lower lobe atelectasis due to mucous plugging Mucous plugging from L7-L10 and R6-R10 RML and LLL BAL performed Recommendation: Follow-up RML and LLL BAL results. Procedure codes: 08942, bronchoscopy, rigid and flexible, including fluoroscopic guidance, one performed; with bronchial endobronchial broncho-alveolar lavage, single or multiple sites RICH PERALTA MD Apr 01, 2024 09:56
[2024-04-01] MEDS: IPRATROPIUM BROM 0.5 MG/2.5ML INH SOL NEB ONE (10:00)
[2024-04-01] MEDS: ALBUTEROL SULF 2.5 MG/0.5ML(0.5%) NEB SOLN NEB ONE (10:00)
--- NOTE | 2024-04-01 10:10 | DVHNC2 ---
Procedure - I administered moderate sedation throughout the 14 minutes of the procedure. An independent observer administered medications at my direction and monitored the patient's level of consciousness and physiological status throughout the procedure. CPT 26597 for the first 15 minutes. CONSCIOUS SEDATION PROCEDURE NOTE: Procedural Sedation Performed by: Dr Khan Bourbon Protocol: a time out was performed and the correct patient and site were verified Consent: The risks and benefits of monitored anesthesia care, including the risk of aspiration, deep sedation requiring airway management including possible intubation, nausea/vomiting and the risks of not performing the procedure, including severe pain and inability to complete the procedure, were all discussed with the [patient]. The alternatives of performing the procedure, including local anesthesia and IV analgesia, also discussed. The patient has a ride home available. ASA Class: II-mild systemic disease Mallampati Score: 2 Pre-anesthesia evaluation, including history, exam, and informed consent is documented in the note above. Monitoring: Continuous monitoring of heart rate, respiratory rate, pulse oximetry and ETCO2. Supplemental oxygen prior to and during procedure via nasal cannula. Resuscitation equipment available at the bedside during sedation. Intra-service start time: 918 am Intra-service stop time: 932 am The patient received Versed 2 mg, Fentanyl 50 mcg, Benadryl 50 mg ivp and dosages were recorded on the sedation form. The patient was recovered from the sedation without complication or incident. Patient returned to pre-sedation level of awareness. The monitoring was discontinued at this time. Post-anesthesia evaluation: Respiratory function, cardiovascular function, temperature, and mental status [did/did not] return to pre-anesthetic state. Pain was controlled. The patient did tolerate p.o. RICH KHAN MD Apr 01, 2024 10:10
--- NOTE | 2024-04-01 10:33 | DVH ---
CHEST RADIOGRAPH Indication: Post Bronchoscopy Technique: Single frontal view of the chest was obtained Comparison: XY CHEST PORTABLE on DOS: 03/30/24, XY CHEST PORTABLE on DOS: 03/27/24, CHEST PORTABLE on DOS : 02/28/22, CHEST PORTABLE on DOS: 08/04/19, XY CHEST PORTABLE on DOS: 03/30/24 FINDINGS: Lines and Tubes: None Lungs: Retrocardiac opacity may reflect pneumonia or aspiration Pleura: Small left pleural effusion. No pneumothorax. Cardiomediastinal contours: Unremarkable Bones: Unremarkable IMPRESSION: 1. Retrocardiac opacity may reflect pneumonia or aspiration. 2. Small left pleural effusion
--- NOTE | 2024-04-01 11:27 | DVHPN2 ---
Reviewed: Care Plan, H&P, Labs, Medications, Previous Orders, Radiology Changes from previous H/P or p: No Changes Eyes: No Pain, No Vision change, No Conjunctivae inflammation, No Eyelid inflammation, No Other, No Redness ENT: No Ear pain, No Ear discharge, No Nose pain, No Nose discharge, No Nose congestion, No Mouth pain, No Mouth swelling, No Throat pain, No Throat swelling, No Other Cardiovascular: Chest Pain; No Palpitations, No Orthopnea, No Paroxysmal Noc. Dyspnea, No Edema, No Lt Headedness, No Other Respiratory: No Cough, No Dry; Shortness of breath, SOB with excertion; No Wheezing, No Hemoptysis, No Pleuritic Pain, No Sputum; Other (SOB at rest) Gastrointestinal: No Nausea, No Vomiting, No Abdominal Pain, No Diarrhea, No Constipation, No Melena, No Hematochezia, No Other Genitourinary: No Dysuria, No Frequency, No Incontinence, No Hematuria, No Retention, No Other Musculoskeletal: No other, No neck pain, No shoulder pain, No arm pain, No back pain, No hand pain, No leg pain, No foot pain Skin: No Rash, No Lesions, No Jaundice, No Bruising, No Other Objective Vitals Vital Signs Date Time Temp Pulse Resp B/P (MAP) Pulse Ox O2 Delivery O2 Flow Rate FiO2 04/01/24 11:11 103/63 04/01/24 10:20 114 19 94 04/01/24 09:39 Nasal Cannula 4.0 04/01/24 09:39 98.6 98.6 04/01/24 06:42 36 Intake/Output Intake and Output 04/01/24 07:00 Intake Total 1490 ml Output Total 1950 ml Balance -460 ml Intake Oral 940 ml IV Total 550 ml Output Urine Total 1950 ml General Appearance: Alert, Oriented X3, Cooperative, No acute distress Lungs: Clear to auscultation, Normal air movement, Other (scattered wheeze) Cardiovascular: Regular rate, Normal S1, Normal S2 Abdomen: Normal bowel sounds, Soft, No tenderness, No hepatospenomegaly Neuro: Normal gait, Normal speech, Strength at 5/5 X4 ext, Normal tone, S ensation intact, Cranial nerves 3-12 NL Medications Current Medications Medications Dose Ordered Sig/Saige Route Start Time Stop Time Status Last Admin Dose Admin Albuterol 2.5 mg Q4HPRN PRN NEB 03/27/24 21:45 04/01/24 10:10 2.5 MG Ipratropium Sargent 0.5 mg Q4HPRN PRN NEB 03/27/24 21:45 04/01/24 10:10 0.5 MG Levothyroxine Sodium 100 mcg QAM@0600 PO 03/28/24 06:00 03/31/24 06:16 100 MCG Aspirin 81 mg DAILY PO 03/28/24 10:00 04/01/24 11:11 81 MG Furosemide 20 mg DAILY IV 03/28/24 10:00 04/01/24 11:11 20 MG Ceftriaxone Sodium 50 ml @ 100 mls/hr DAILY@09 IV 03/28/24 09:00 04/01/24 11:10 100 MLS/HR Sodium Chloride 10 ml Q8HR IV 03/27/24 22:00 04/01/24 06:26 10 ML Acetaminophen/ Hydrocodone Bitart 1 tab Q4HP PRN PO 03/27/24 21:45 03/30/24 21:26 1 TAB Docusate Sodium 100 mg BIDPRN PRN PO 03/27/24 21:45 Acetaminophen 650 mg Q6HP PRN PO 03/27/24 21:45 Norepinephrine Bitartrate 250 ml @ 3.75 mls/hr Q24H IV 03/28/24 04:30 Hold 03/30/24 01:07 7.5 MLS/HR Atorvastatin Calcium 40 mg HS PO 03/28/24 22:00 03/31/24 21:35 40 MG Enoxaparin Sodium 90 mg Q12HR SC 03/28/24 10:00 04/01/24 11:11 90 MG Amiodarone HCl 200 mg Q12HR PO 03/28/24 10:00 04/01/24 11:11 200 MG Vancomycin HCl 0 ml @ 0 mls/hr UD IV 03/28/24 12:00 Methylprednisolone Sodium Succinate 40 mg Q8HR IV 03/28/24 22:00 03/31/24 21:35 40 MG Tamsulosin HCl 0.4 mg QPM PO 03/28/24 18:00 03/31/24 17:36 0.4 MG Vancomycin HCl 250 ml @ 200 mls/hr Q20H IV 03/29/24 08:00 03/31/24 20:49 200 MLS/HR Doxycycline Hyclate 250 ml @ 125 mls/hr Q12H IV 04/01/24 06:45 04/01/24 06:48 125 MLS/HR Ipratropium Sargent 0.5 mg Q3HP PRN NEB 04/01/24 09:45 Laboratory Results Laboratory Tests 03/29/24 05:25 03/30/24 06:52 03/31/24 06:14 Urinalysis Test 03/28/24 10:22 Urine Color Light-yellow (Yellow) Urine Clarity Turbid (Clear) H Urine pH 5.5 (5.0-9.0) Urine Specific [place] 1.010 (1.001-1.035) Urine Protein Trace (Negative) H Urine Ketones Negative (Negative) Urine Blood 2+ /uL (Negative) H Urine Nitrite Negative (Negative) Urine Bilirubin Negative (Negative) Urine Urobilinogen Normal mg/dL (Negative) Urine Leukocyte Esterase 3+ /uL (Negative) Urine RBC 3 /hpf (0 - 3) Urine WBC 100 /hpf (0 - 3) Urine Squamous Epithelial Cells Few /hpf (<5) Urine Bacteria Few /hpf (None Seen) H Urine Hyaline Casts Few /lpf (0 - 2) Urine Glucose Normal mg/dL (Normal) Microbiology Microbiology Date/Time Source Procedure Growth Status 03/28/24 10:22 Voided Urine Urine Culture - Final Complete 03/27/24 21:14 Blood Blood Culture - Preliminary NO GROWTH AFTER 72 HOURS OF INCUBATION. Resulted Labs and/or images reviewed: Labs reviewed by me, Image(s) reviewed by me Assessment/Plan Assessment/Plan Sepsis Secondary to bilateral community-acquired pneumonia: Treated with vancomycin and doxycycline Ana test negative Flu test negative Status post bronchoscopy by Dr. 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 Plan discussed with: Patient My Orders Orders - OSKAR LONGORIA MD Procedure Category Date Status Time Complete Blood Count LAB 04/01/24 Logged 05:00 Comprehensive LAB 04/01/24 Logged Metabolic Panel 05:00 PTPTT LAB 04/01/24 Logged 05:00 Type And Screen BBK 04/01/24 Logged 05:00 Date of Service: Apr 01, 2024 Billing Provider: OSKAR LONGORIA MD Common Visit Codes: [id number] INP/OBS CARE(HIGH) OSKAR LONGORIA MD Apr 01, 2024 11:27
[2024-04-01] MEDS ORDERED: LEVO500T91 PO (11:29)
[2024-04-01] MEDS ORDERED: DOXY100C79 PO (11:29)
--- NOTE | 2024-04-01 11:32 | DVHDS2 ---
Discharge Summary Date of Admission Mar 27, 2024 at 22:04 Date of Discharge: Apr 01, 2024 Admitting Diagnosis Shortness of breaths Wounds: Bronchoscopy Labs/Diagnostic Data: Laboratory Results Test 03/31/24 06:14 03/30/24 23:46 03/30/24 06:52 03/29/24 05:25 White Blood Count 15.8 10^3/uL (4.4-10.8) Red Blood Count 3.17 10^6/uL (4.5-5.90) Hemoglobin 8.9 g/dL (13.5-17.5) Hematocrit 27.0 % (41.0-53.0) Mean Corpuscular Volume 85.0 fL (80.0-100.0) Mean Corpuscular Hemoglobin 28.0 pg (28.0-32.0) Mean Corpuscular Hemoglobin Concent 32.9 g/dL (32.0-36.0) Red Cell Distribution Width 16.2 % (11.8-14.3) Platelet Count 281 10^3/uL (140-450) Mean Platelet Volume 7.1 fL (6.9-10.8) Neutrophils (%) (Auto) 88.7 % (37.0-80.0) Lymphocytes (%) (Auto) 5.3 % (10.0-50.0) Monocytes (%) (Auto) 5.8 % (0.0-12.0) Eosinophils (%) (Auto) 0.0 % (0.0-7.0) Basophils (%) (Auto) 0.2 % (0.0-2.0) Neutrophils # (Auto) 14.0 10 ^3/uL (1.6-8.6) Lymphocytes # (Auto) 0.8 10 ^3/uL (0.4-5.4) Monocytes # (Auto) 0.9 10 ^3/uL (0-1.3) Eosinophils # (Auto) 0 10 ^3/uL (0-0.8) Basophils # (Auto) 0 10 ^3/uL (0-0.2) Nucleated Red Blood Cells 0.1 % Potassium Level 3.5 mmol/L (3.5-5.1) Vancomycin Level Trough 11.9 ug/mL (5-10) Creatinine 1.30 mg/dL (0.700-1.30) Glomerular Filtration Rate Calc 59 mL/min (>90) Sodium Level 134 mmol/L (136-145) Chloride Level 104 mmol/L (98-107) Carbon Dioxide Level 24 mmol/L (20-31) Anion Gap 6 (5-15) Blood Urea Nitrogen 47 mg/dL (9-23) BUN/Creatinine Ratio 28.3 (10.0-20.0) Serum Glucose 244 mg/dL (74-106) Calcium Level 9.2 mg/dL (8.7-10.4) Test 03/28/24 10:22 03/28/24 08:34 03/28/24 04:50 03/28/24 02:55 Urine Color Light-yellow (Yellow) Urine Clarity Turbid (Clear) Urine pH 5.5 (5.0-9.0) Urine Specific [place] 1.010 (1.001-1.035) Urine Protein Trace (Negative) Urine Ketones Negative (Negative) Urine Blood 2+ /uL (Negative) Urine Nitrite Negative (Negative) Urine Bilirubin Negative (Negative) Urine Urobilinogen Normal mg/dL (Negative) Urine Leukocyte Esterase 3+ /uL (Negative) Urine RBC 3 /hpf (0 - 3) Urine WBC 100 /hpf (0 - 3) Urine Squamous Epithelial Cells Few /hpf (<5) Urine Bacteria Few /hpf (None Seen) Urine Hyaline Casts Few /lpf (0 - 2) Urine Glucose Normal mg/dL (Normal) Influenza Type A Antigen Negative (Negative) Influenza Type B Antigen Negative (Negative) SARS-CoV-2 Antigen (Rapid) Negative (NEGATIVE) Differential Total Cells Counted 100.0 (100) Neutrophils % (Manual) 73 (37.0-80.0) Band Neutrophils % (Manual) 15 Lymphocytes % (Manual) 7 (10.0-50.0) Monocytes % (Manual) 5 (0-12) Eosinophils % (Manual) 0 (0-7) Basophils % (Manual) 0 (0.0-2.0) Metamyelocytes % (manual) 0 Myelocytes % (Manual) 0 Promyelocytes % (Manual) 0 Blast Cells % (Manual) 0 Reactive Lymphocytes 0 Platelet Estimate Adequate Hemoglobin A1c 5.2 % A1C (<5.7) Magnesium Level 1.2 mg/dL (1.6-2.6) Total Bilirubin 0.7 mg/dL (0.2-1.0) Aspartate Amino Transferase (AST) 31 U/L (13-40) Alanine Aminotransferase (ALT) 20 U/L (7-40) Alkaline Phosphatase 88 U/L (46-116) Total Protein 6.7 g/dL (5.7-8.2) Albumin 3.0 g/dL (3.2-4.8) Triglycerides Level 30 mg/dL (< 150) Cholesterol Level 85 mg/dL (< 200) LDL Cholesterol 33 mg/dL (< 100) HDL Cholesterol 42 mg/dL (40-59) Free Prostate Specific Antigen 0.40 ng/mL (N/A) Percent Free Prostate Specific Ag 23.5 % (.) Prostate Specific Antigen Total 1.7 ng/mL (0.0-4.0) Lactic Acid Level 1.6 mmol/L (0.4-2.0) Test 03/27/24 19:28 03/27/24 18:47 Troponin I High Sensitivity 11 ng/L (</=54) Thyroid Stimulating Hormone (TSH) 6.65 uIU/mL (0.55-4.78) Prothrombin Time 14.0 sec (9.3-11.8) Prothrombin Time INR 1.35 (0.9-1.15) Activated Partial Thromboplast Time 30.6 SEC (24.5-34.5) B-Type Natriuretic Peptide 208.84 pg/mL (0-100) Other Laboratory Tests 03/31/24 06:14 03/30/24 06:52 03/29/24 05:25 Brief Hx & Hospital Course: 53-year-old male with a history of COPD coronary artery disease AFib status post recent ablation at [facility] BPH with urethral stricture status post Castano insertion by Urology Dr. Cheng came in complaining of generalized weakness and shortness of breaths found to have sepsis secondary to community-acquired pneumonia treated with the vancomycin and doxycycline Ana test negative flu test negative bronchoscopy by Dr. Khan without pending acute UTI treated with the Rocephin blood cultures negative urine cultures were mixed . Acute COPD exacerbation treated with albuterol Atrovent and Solu-Medrol. Patient insistent to be discharged today to celebrate his birthday tomorrow. Prescription for Levaquin for UTI and doxy for pneumonia transmitted to the pharmacy and reviewed all his previous home medications. He will Follow up with Dr. Khan for bronchoscopy result Consults/Reason for consult Pulmonology Dr. Khan Urology Dr. Hilton Operations or Procedures Bronchoscopy Castano insertion Condition at Discharge: Fair Final Diagnosis/Problems List Sepsis Secondary to bilateral community-acquired pneumonia: Treated with vancomycin and doxycycline Ana test negative Flu test negative Status post bronchoscopy by Dr. 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 Khan in two weeks Medications: Levaquin Doxycycline Transmitted to the pharmacy 35 (Time taken for discharge summary 35 minutes) Discharge Statement: "Patient was advised to return to the ER or call 911 if any headaches, dizziness, shortness of breath, chest pain, abdominal pain, bleeding, fevers, or worsening of medical condition. Patient was counseled about treatment plan, medications, possible side effects, patientverbalized understanding. All questions were answered to the best of my ability. This discharge took greater then 30 minutes in planning, reviewing documentation, counseling the patient, and discussing with other team members." ASSESSMENT ASSESSMENT Hospital Course Improved Assessment Sepsis Secondary to bilateral community-acquired pneumonia: Treated with vancomycin and doxycycline Ana test negative Flu test negative Status post bronchoscopy by Dr. 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
[2024-04-01 12:52] LABS: Hematocrit 26.5 % (41.0-53.0); Hemoglobin 8.8 g/dL (13.5-17.5); Mean Corpuscular Hemoglobin 28.1 pg (28.0-32.0); Mean Corpuscular Hgb Conc. 33.1 g/dL (32.0-36.0); Mean Corpuscular Volume 85.1 fL (80.0-100.0); Platelet Count (auto) 246 10^3/uL (140-450); Red Blood Cells 3.12 10^6/uL (4.5-5.90); Red Cell Distribution Width 16.6 % (11.8-14.3); White Blood Cell 13.4 10^3/uL (4.4-10.8)
[2024-04-01 13:07] LABS: Basophils % (manual) 0 (0.0-2.0); Blast Cells 0; Eosinophils % (manual) 0 (0-7); Metamyelocytes % 0; Myelocytes % 0; Promyelocytes % 0; Reactive Lymphocytes 0
[2024-04-01 13:09] LABS: INR 1.08 (0.9-1.15); Partial Thromboplastin Time 24.3 SEC (24.5-34.5); Prothrombin Time 11.4 sec (9.3-11.8)
[2024-04-01 13:12] LABS: Alkaline Phosphatase 77 U/L (46-116); Anion Gap 8 (5-15); BUN/Creatinine Ratio 35.5 (10.0-20.0); Bilirubin, Total 0.3 mg/dL (0.2-1.0); Carbon Dioxide 25 mmol/L (20-31); Glucose 97 mg/dL (74-106); Potassium 3.5 mmol/L (3.5-5.1); Sodium 142 mmol/L (136-145); Total Protein 6.2 g/dL (5.7-8.2)
[2024-04-01 13:13] LABS: Alanine Aminotransferase 60 U/L (7-40); Aspartate Aminotransferase 50 U/L (13-40); Blood Urea Nitrogen 39 mg/dL (9-23); Chloride 109 mmol/L (98-107)
[2024-04-01 14:43] LABS: Band Neutrophils % (manual) 3; Lymphocytes % (manual) 15 (10.0-50.0); Monocytes % (manual) 5 (0-12); Platelet Estimate Adequate
--- NOTE | 2024-04-01 23:23 | DVHPN2 ---
Progress Note - Dictate Date Seen: Apr 01, 2024 Medical Necessity Reason Pt with a Central, PICC or Fol: Yes The following are medically ne: Landa Catheter Reason for landa catheter: Strict I&O Subjective Patient seen and examined at bedside. Remains on supplemental oxygen Overnight events reviewed. vital signs Vital Sign Date Time Temp Pulse Resp B/P (MAP) Pulse Ox O2 Delivery O2 Flow Rate FiO2 04/01/24 13:00 98.5 89 18 96/46 (63) 97 98.5 04/01/24 10:30 Nasal Cannula 4.0 04/01/24 07:45 36 Total Intake and Output 03/31/24 03/31/24 04/01/24 15:00 23:00 07:00 Intake Total 890 ml 500 ml 100 ml Output Total 600 ml 1350 ml Balance 890 ml -100 ml -1250 ml objective Gen.: Patient lying in bed in no apparent distress. On supplemental oxygen. Head: Normocephalic, atraumatic. Eyes: EOMI/PERRLA. Ears: Normal hearing. Normal anatomy. Neck/trachea: Trachea midline, supple. Nose: Normal external anatomy. Mouth: Moist mucous membranes. Chest: Decreased air entry bilaterally. No wheezing or rhonchi. Cardiovascular: Positive S1, positive S2. Regular rate and rhythm. Abdomen: Positive bowel sounds in all 4 quadrants. Soft, non-tender, non- distended. : Deferred. Rectal: Deferred. Skin: Warm, dry. Intact. Extremities: 2+ radial pulses bilaterally. No lower extremity edema. Neuro: Awake, alert, oriented x3. No gross motor or sensory deficits. Cranial nerves II through XII intact. Gait not assessed. laboratory and microbiology Laboratory Tests 04/01/24 12:00 Test 04/01/24 12:00 Range/Units Serum Glucose 97 # 74-106 mg/dL Assessment/Plan Impression: Acute hypoxic respiratory failure Dependence on supplemental oxygen Pleural effusion Atelectasis Pneumonia, likely gram negative Events: Remains on supplemental O2, on 4 LPM NC Taper O2 as tolerated. Patient underwent bronchoscopy with RML and LLL bronchoalveolar lavage today. Mucous plugging noted from L7-L10 and R6-R10 See separate procedure note for full details. Patient to follow up in [facility] for results. CXR reviewed, demonstrates Retrocardiac opacity, may reflect pneumonia or aspiration. Small left pleural effusion Continue antibiotics Continue bronchodilators Incentive spirometry Cardiology recommendations appreciated. Patient is stable for discharge from the pulmonary standpoint. Rest of plan as outlined below. Plan: Supplemental oxygen Titrate to keep O2 sats above 92%. Patient is s/p cardiac catheterization. Cardiology recs appreciated. Continue bronchodilators. Continue antibiotics Incentive spirometry Chest pain - Pain control Avoid oversedation Monitor renal function. Monitor electrolytes. Supplement as necessary. Monitor ins and outs. DVT prophylaxis. Prognosis: Poor given patient's multiple co-morbidities. Rest of plan per hospitalist and other consultants. Thank you, Dr. Malik, for allowing me to participate in this patient's care. Further recommendations will depend on the patient's clinical course. Please do not hesitate to contact me if you have any questions or concerns. This medical document was created using an electronic medical record system with [employer] dictation system. Although these documentations are being carefully reviewed, there may still be some phonetic and typographical changes. The errors are purely typographical, due to imperfection on the software program, and do not reflect any compromise in the patient's medical care. Plan discussed with: Patient, Other (RN) RICH PERALTA MD Apr 01, 2024 23:23
== END 2024-04-01 15:50 | disposition home or self-care (01) | DRG 871 ==
LOC: ER 17:57 → EDUNIT# 17:57 → EDBD 17:57 → TELE 22:04 → TELE-WESTW 03-30 18:10
PROVIDERS: ADMIT Nurse Practitioner Family; ATTEND Family Medicine
PROC: 0T7D8ZZ Dilation of Urethra, Via Natural or Artificial Opening Endoscopic (ICD-10-PCS; principal; 2024-03-28)
PROC: 0B9J8ZX Drainage of Left Lower Lung Lobe, Via Natural or Artificial Opening Endoscopic, Diagnostic (ICD-10-PCS; 2024-04-01)
PROC: 0B9D8ZX Drainage of Right Middle Lung Lobe, Via Natural or Artificial Opening Endoscopic, Diagnostic (ICD-10-PCS; 2024-04-01)
DX: A41.9 Sepsis, unspecified organism (principal); J15.69 Pneumonia due to other Gram-negative bacteria; J96.21 Acute and chronic respiratory failure with hypoxia; R65.21 Severe sepsis with septic shock; N17.0 Acute kidney failure with tubular necrosis; J15.9 Unspecified bacterial pneumonia; I25.110 Atherosclerotic heart disease of native coronary artery with unstable angina pectoris; J90 Pleural effusion, not elsewhere classified; J44.0 Chronic obstructive pulmonary disease with (acute) lower respiratory infection; I48.21 Permanent atrial fibrillation; J44.1 Chronic obstructive pulmonary disease with (acute) exacerbation; N39.0 Urinary tract infection, site not specified; I50.32 Chronic diastolic (congestive) heart failure; Z20.822 Contact with and (suspected) exposure to COVID-19; I27.20 Pulmonary hypertension, unspecified; I11.0 Hypertensive heart disease with heart failure; E78.5 Hyperlipidemia, unspecified; Z79.01 Long term (current) use of anticoagulants; Z79.899 Other long term (current) drug therapy; Z79.82 Long term (current) use of aspirin; I25.2 Old myocardial infarction; Z86.711 Personal history of pulmonary embolism; Z86.718 Personal history of other venous thrombosis and embolism; Z87.891 Personal history of nicotine dependence; Z98.61 Coronary angioplasty status; Z83.3 Family history of diabetes mellitus; Z82.49 Family history of ischemic heart disease and other diseases of the circulatory system; Z87.440 Personal history of urinary (tract) infections; Z99.81 Dependence on supplemental oxygen; Z87.01 Personal history of pneumonia (recurrent)
CPT/HCPCS: 31624; 36415; 52000; 71045; 71250; 76775; 80048; 80053; 80061; 80202; 81001; 82565; 83036; 83605; 83735; 83880; 84132; 84154; 84443; 84484; 85007; 85025; 85027; 85610; 85730; 87040; 87070; 87086; 87205; 87426; 87804; 93005; 93306; 94640; 99291; G0378; J0171; J2250; J2405; J3490

== ENCOUNTER → 2024-05-27 | Outpatient (CLI) | payer MEDICARE ==
[~2024-05-27] MED LIST changes: +DOXY100C79 PO; +LEVO500T91 PO
[2024-05-27 12:39] LABS: Basophils # (auto) 0.1 10 ^3/uL (0-0.2); Basophils % (auto) 0.7 % (0.0-2.0); Eosinophils # (auto) 0.4 10 ^3/uL (0-0.8); Eosinophils % (auto) 4.2 % (0.0-7.0); Hematocrit 29.8 % (41.0-53.0); Hemoglobin 9.8 g/dL (13.5-17.5); Lymphocytes # (auto) 1.7 10 ^3/uL (0.4-5.4); Lymphocytes % (auto) 19.5 % (10.0-50.0); Mean Corpuscular Hemoglobin 27.8 pg (28.0-32.0); Mean Corpuscular Volume 84.3 fL (80.0-100.0); Monocytes # (auto) 0.6 10 ^3/uL (0-1.3); Monocytes % (auto) 6.7 % (0.0-12.0); Neutrophils # (auto) 6.1 10 ^3/uL (1.6-8.6); Neutrophils % (auto) 68.9 % (37.0-80.0); Platelet Count (auto) 268 10^3/uL (140-450); Red Blood Cells 3.54 10^6/uL (4.5-5.90); Red Cell Distribution Width 17.2 % (11.8-14.3); White Blood Cell 8.8 10^3/uL (4.4-10.8)
[2024-05-27 13:13] LABS: Thyroid Stimulating Hormone 14.98 uIU/mL (0.55-4.78)
[2024-05-27 13:22] LABS: Potassium 3.8 mmol/L (3.5-5.1)
[2024-05-27 13:23] LABS: Magnesium 1.7 mg/dL (1.6-2.6)
[2024-05-27 13:25] LABS: Free T4 (Free Thyroxine) 1.13 ng/dL (0.89-1.76)
== END | disposition home or self-care (01) ==
LOC: LAB 12:04
PROVIDERS: ATTEND Internal Medicine
DX: I11.0 Hypertensive heart disease with heart failure (principal); I50.9 Heart failure, unspecified; E03.9 Hypothyroidism, unspecified; I48.91 Unspecified atrial fibrillation
CPT/HCPCS: 36415; 82607; 83540; 83550; 83615; 83735; 84132; 84439; 84443; 85025; 85045

== ENCOUNTER 2024-08-11 19:31 | Inpatient (IN) | payer MEDICARE ==
[~2024-08-11] VITALS: Ht 182.9 cm; Wt 91.0 kg
[2024-08-11 19:35] VITALS: PULSE 111; RESP 25; O2SAT 97
[2024-08-11] MEDS ORDERED: IPRATROPIUM BROM 0.5 MG/2.5ML INH SOL ONE (19:37)
[2024-08-11] MEDS ORDERED: LEVALBUTEROL HCL 1.25 MG/3 ML NEB ONE (19:37)
--- NOTE | 2024-08-11 19:53 | ECG ---
[facility] Test Date: 2024-08-11 Test Time: 19:35:32 Pat Name: JANET CHAN Department: ED Room: Gender: M Lens Dotter: ADAM : 1950 Requested By: CATALINA RYAN Order Number: [id number] Reading MD: Measurements Intervals [place] Rate: 119 P: 0 ME: 0 QRS: 108 QRSD: 117 T: 54 QT: 357 QTc: 503 Interpretive Statements Atrial fibrillation Left posterior fascicular block Low voltage, extremity leads Consider anterior infarct ST elevation, consider inferior injury Please click the below link to view image of tracing.
[2024-08-11] MEDS: IPRATROPIUM BROM 0.5 MG/2.5ML INH SOL NEB ONE ×2 (20:00→20:20)
[2024-08-11 20:04] LABS: Base Excess 9.1 mmol/L (-2.0-3.0)
[2024-08-11 20:04] LABS: Basophils # (auto) 0 10 ^3/uL (0-0.2); Basophils % (auto) 0.4 % (0.0-2.0); Eosinophils # (auto) 0.1 10 ^3/uL (0-0.8); Hematocrit 31.4 % (41.0-53.0); Hemoglobin 10.5 g/dL (13.5-17.5); Lymphocytes # (auto) 1.6 10 ^3/uL (0.4-5.4); Lymphocytes % (auto) 24.2 % (10.0-50.0); Mean Corpuscular Hemoglobin 28.6 pg (28.0-32.0); Mean Corpuscular Hgb Conc. 33.5 g/dL (32.0-36.0); Mean Corpuscular Volume 85.2 fL (80.0-100.0); Monocytes # (auto) 0.6 10 ^3/uL (0-1.3); Monocytes % (auto) 9.4 % (0.0-12.0); Neutrophils # (auto) 4.2 10 ^3/uL (1.6-8.6); Nucleated Red Blood Cells % 0.2 %; Platelet Count (auto) 211 10^3/uL (140-450); Red Blood Cells 3.69 10^6/uL (4.5-5.90); Red Cell Distribution Width 15.4 % (11.8-14.3); White Blood Cell 6.5 10^3/uL (4.4-10.8)
[2024-08-11] MEDS: LEVALBUTEROL HCL 1.25 MG/3 ML NEB NEB ONE (20:15)
--- NOTE | 2024-08-11 20:26 | DVH ---
INDICATION: sob TECHNIQUE: Frontal view of the chest. COMPARISON: XY CHEST XRAY 1 VIEW on DOS: 04/01/24, XY CHEST PORTABLE on DOS: 03/30/24, XY CHEST PORTABLE on DOS: 03/27/24, CHEST PORTABLE on DOS: 02/28/22, CHEST PORTABLE on DOS: 08/04/19 FINDINGS: Findings:. The heart there is cardiomegaly with mild interstitial pulmonary edema. There is no eviden ce of airspace consolidation.. The bony structures of the chest are intact without fracture. IMPRESSION: 1. Cardiomegaly with interstitial pulmonary edema
--- NOTE | 2024-08-11 20:38 | ED.PDOC ---
History of Present Illness HPI Comments 74 y/o M with a history of AFib s/p ablation, CAD, CHF, COPD on home O2, HLD, HTN, NC s/p PTCA, PE, UTI's, sepsis secondary to PNA, and current lung fungal infection, brought in by EMS from home complaining of shortness of breath. EMS reports patient was saturating 81 % on room air with wheezes and diminished breath sounds on the left. DuoNeb was administered which only improved the patient's oxygen saturation to 87%. Patient was subsequently placed on CPAP with improvement of oxygen saturation to 95%. On arrival to ED, the patient appears to be in moderate respiratory distress and was transitioned to BiPAP. History is limited due to severity of symptoms. Patient was able to acknowledge he is not having chest pain and that shortness of breath has improved with treatment by EMS. He denies fever. He acknowledges he has been coughing. Chief Complaint: Shortness of Breath Time Seen by MD: 19:40 Primary Care Provider: ALBINA Reviewed Notes: Nurses Notes, Meat And Poultry Inspector Notes, Medications, Allergies Allergies: Coded Allergies: NO KNOWN ALLERGIES (Unverified , 08/04/19) Home Meds Active Scripts Levofloxacin Hemihydrate (LEVAQUIN 500 MG) 500 Mg Tab, 1 TAB PO DAILY, #10 TAB Prov:OSKAR LONGORIA MD 04/01/24 Doxycycline (Monohydrate) (Doxycycline) 100 Mg Cap, 100 MG PO DAILY, #20 CAP Prov:OSKAR LONGORIA MD 04/01/24 Guaifenesin (Guaifenesin) 200 Mg Tab, 200 MG PO QID for 7 Days, #28 TAB Prov:RIO SULTANA MD 03/07/22 Prednisone (Prednisone) 20 Mg Tab, 20 MG PO BID for 5 Days, #10 TAB Prov:RIO SULTANA MD 03/07/22 Reported Medications Furosemide (Furosemide) 40 Mg Tab, 40 MG PO DAILY for 30 Days 03/02/22 Warfarin Sodium (Warfarin Sodium) 2.5 Mg Tab, 2.5 MG PO DAILY for 30 Days, MG 03/02/22 Fluticasone-Salmeterol (Wixela Inhub 500-50 Mcg/Dose) 1 Aer Aer, 1 AER IN BID, AER 03/02/22 Albuterol Sulfate (Albuterol Sulfate) 0.083 % Neb, 1 VIAL NEB Q6HPRN PRN for SHORTNESS OF BREATH, #50 VIAL 08/05/19 Levothyroxine Sodium (Levothyroxine Sodium) 100 Mcg Tab, 100 MCG PO QAM for 30 Days, MCG 08/05/19 Hydrochlorothiazide (Hydrochlorothiazide) 12.5 Mg Cap, 12.5 MG PO DAILY, MG 08/05/19 Amiodarone Hcl (Amiodarone Hcl) 200 Mg Tab, 200 MG PO DAILY 08/05/19 Atorvastatin Calcium (ATORVASTATIN CALCIUM) 40 Mg Tab, 1 TAB PO HS, #30 TAB 5 Refills 08/05/19 Metoprolol Tartrate (Metoprolol Tartrate) 25 Mg Tab, 25 MG PO BID for 30 Days, MG 09/03/18 Tiotropium [place] Monohydrate (Spiriva Handihaler) 18 Mcg Cap, 18 MCG IN QAM, CAP 08/09/18 Albuterol Sulfate (VENTOLIN MDI) 90 Mcg Ih, 2 PUFF IN TID PRN for SHORTNESS OF BREATH for 30 Days, MCG 08/09/18 Aspirin (Aspir-Low) 81 Mg Tab, 81 MG PO DAILY for 30 Days, MG 08/09/18 Information Source: Patient, Emergency Med Personnel Mode of Arrival: EMS Severity: Moderate Timing: Hours Duration: Since onset Prehospital treatment: 12 Lead EKG, Breathing Tx, Tube Rebuilder, C-Pap, Oxygen Past Medical History PAST MEDICAL HISTORY: AFIB (s/p ablation), CAD, CHF, COPD, High Lipids, HTN, NC, PE, UTI'S Past Medical History (Other): BPH w/urethral stricutre sepsis secondary to PNA Surgical History: PTCA, Tonsillectomy Surgical History (Other): heart ablation s/p AFIB bronchoscopy Family History Family History: Reviewed,noncontributory to illness Social History Smoker: Non-Smoker Alcohol: Occasionally Drugs: Denies Drug Use Lives In: Home Unable to Obtain due to: Medical Urgency Physical Exam General Appearance: Moderate Distress HEENT: Other (Pupils and face symmetric. Moist mucous membranes.) Neck: Full Range of Motion, Normal Inspection Respiratory: Accessory Muscle Use, Decreased Breath Sounds, Respiratory Distress, Wheezing Cardiovascular: Irregular, No Edema, No JVD, Tachycardia Breast Exam: Deferred Gastrointestinal: Non Tender, Soft Genitalia: Deferred Pelvic: Deferred Rectal: Deferred Extremities: Normal inspection, Normal range of motion, Non-tender, No pedal edema Neurologic: Alert (Oriented x4), Other (Moves all extremities. Sensation intact all extremities.) Cerebellar Function: NOT DONE Reflexes: NOT DONE Skin: Dry, Pallor, Warm Lymphatic: NOT DONE Was a procedure done? Was a procedure done?: No EKG EKG : Comments AFib RVR, rate 119, normal QRS interval, QTC prolonged at 503, indeterminate axis, old lateral or anteroseptal infarct, nonspecific T change. Differential Dx Considerations may include: acute CHF/COPD exacerbation, arrhythmia, NC, PE, ACS, URI, PNA, among others X-Ray, Labs, Meds, VS Vital Signs Date Time Temp Pulse Resp B/P (MAP) Pulse Ox O2 Delivery O2 Flow Rate FiO2 08/11/24 20:39 89 Facial BiPAP Mask 40 08/11/24 20:00 100 08/11/24 19:54 97.6 100 22 194/116 (142) 95 97.6 08/11/24 19:49 114 170/93 Facial BiPAP Mask 50 08/11/24 19:35 119 08/11/24 19:35 97.8 111 25 170/93 (118) 97 97.8 Lab Test 08/11/24 20:58 08/11/24 19:56 08/11/24 19:42 Range/Units Troponin I High Sensitivity Pending 22 </=54 ng/L Blood Gas Specimen Type Arterial Blood Gas Sample Site Left radial Blood Gas Patient Temperature 37.0 Arterial Blood Date Drawn [id number] Arterial Blood pH 7.404 7.350-7.450 Arterial Blood Partial Pressure CO2 57.9 H 35.0-48.0 mmHg Arterial Blood Partial Pressure O2 69.8 L 83.0-108.0 mmHg Arterial Blood HCO3 35.4 H 21.0-28.0 mmol/L Arterial Blood Oxygen Saturation 92.3 L 94.0-98.0 % Arterial Blood Base Excess 9.1 H -2.0-3.0 mmol/L Arterial Blood Oxyhemoglobin 91.6 L 94.0-98.0 % Arterial Blood Carboxyhemoglobin 0.4 L 0.5-1.5 % Arterial Blood Methemoglobin 0.4 0.0-1.5 % Albert Test Yes Blood Gas Total Hemoglobin 10.20 L 13.5-17.5 g/dL Blood Gas Set Respiration Rate 14.0 Blood Gas Modality Mask - bipap Blood Gas Spontaneous Rate 18 FiO2 % 40.0 Blood Gas Tidal Volume 794.0 Blood Gas Spontaneous Tidal Volume 794 Blood Gas EPAP 5 Blood Gas IPAP 10 Specimen Drawn By Sunny logan rt White Blood Count 6.5 4.4-10.8 10^3/uL Red Blood Count 3.69 L 4.5-5.90 10^6/uL Hemoglobin 10.5 L 13.5-17.5 g/dL Hematocrit 31.4 L 41.0-53.0 % Mean Corpuscular Volume 85.2 80.0-100.0 fL Mean Corpuscular Hemoglobin 28.6 28.0-32.0 pg Mean Corpuscular Hemoglobin Concent 33.5 32.0-36.0 g/dL Red Cell Distribution Width 15.4 H 11.8-14.3 % Platelet Count 211 140-450 10^3/uL Mean Platelet Volume 7.4 6.9-10.8 fL Neutrophils (%) (Auto) 64.0 37.0-80.0 % Lymphocytes (%) (Auto) 24.2 10.0-50.0 % Monocytes (%) (Auto) 9.4 0.0-12.0 % Eosinophils (%) (Auto) 2.0 0.0-7.0 % Basophils (%) (Auto) 0.4 0.0-2.0 % Neutrophils # (Auto) 4.2 1.6-8.6 10 ^3/uL Lymphocytes # (Auto) 1.6 0.4-5.4 10 ^3/uL Monocytes # (Auto) 0.6 0-1.3 10 ^3/uL Eosinophils # (Auto) 0.1 0-0.8 10 ^3/uL Basophils # (Auto) 0 0-0.2 10 ^3/uL Nucleated Red Blood Cells 0.2 % Sodium Level 135 L 136-145 mmol/L Potassium Level 3.6 3.5-5.1 mmol/L Chloride Level 95 L 98-107 mmol/L Carbon Dioxide Level 36 H 20-31 mmol/L Anion Gap 4 L 5-15 Blood Urea Nitrogen 11 9-23 mg/dL Creatinine 1.11 0.700-1.30 mg/dL Glomerular Filtration Rate Calc 71 >90 mL/min BUN/Creatinine Ratio 9.9 L 10.0-20.0 Serum Glucose 123 H 74-106 mg/dL Calcium Level 8.1 L 8.7-10.4 mg/dL B-Type Natriuretic Peptide 803.67 0-100 pg/mL Current Medications Medications (Trade) Dose Ordered Sig/Saige Route Start Time Stop Time Status Last Admin Ipratropium [place] (Atrovent Medneb) 0.5 mg ONCE ONCE NEB 08/11/24 19:45 08/11/24 19:46 DC 08/11/24 20:00 Methylprednisolone Sodium Succinate (Solu Medrol) 125 mg ONCE ONCE IV 08/11/24 19:45 08/11/24 19:46 DC 08/11/24 21:05 Levalbuterol HCl (Xopenex Medneb) 1.25 mg ONCE ONCE NEB 08/11/24 20:15 08/11/24 20:30 DC 08/11/24 20:15 [place] [id number] Ph: [phone] DIAGNOSTIC IMAGING Diagnostic Imaging Report : [id number] Signed PATIENT: JANET CHAN ACCT: [id number] UNIT: [id number] : 1950 LOC: ER ROOM / BED: / AGE / SEX: 74 / M ADM STATUS: REG ER SERVICE 36 ORDERING PHYSICIAN: CATALINA BOWENS MD PROCEDURE(s): CXRP - CHEST PORTABLE REASON: sob ORDER NUMBER(s): [id number], ACCESSION NUMBER(s): [id number] INDICATION: sob TECHNIQUE: Frontal view of the chest. COMPARISON: XY CHEST XRAY 1 VIEW on DOS: 04/01/24, XY CHEST PORTABLE on DOS: 03/30/24, XY CHEST PORTABLE on DOS: 03/27/24, CHEST PORTABLE on DOS: 02/28/22, CHEST PORTABLE on DOS: 08/04/19 FINDINGS: Findings:. The heart there is cardiomegaly with mild interstitial pulmonary edema. There is no evidence of airspace consolidation.. The bony structures of the chest are intact without fracture. IMPRESSION: 1. Cardiomegaly with interstitial pulmonary edema ATED BY: DEEPA SMITH MD DICTATED DATE/TIME: 08/11/242022 SIGNED BY: DEEPA SMITH MD SIGNED DATE/TIME: 08/11/242022 CC: X-Ray, Labs, Meds, VS Comment 74 y/o M with a history of AFib s/p ablation, CAD, CHF, COPD on home O2, HLD, HTN, NC s/p PTCA, PE, UTI's, sepsis secondary to PNA, and current lung fungal infection, brought in by EMS from home complaining of shortness of breath. Vitals remarkable for heart rate 119, respiratory rate 25, BP 170/93 Exam remarkable for respiratory distress, wheezes and diminished breath sounds, tachycardia Rhythm strip independently interpreted by me: AFib RVR, rate 119 Chest x-ray IMPRESSION: 1. Cardiomegaly with interstitial pulmonary edema CBC unremarkable, metabolic panel remarkable for sodium 135, chloride 95, CO2 36, BNP 803.67, troponin negative x2 Patient treated with the following in the ED: Continued on BiPAP Xopenex 1.25/Atrovent 0.5 mg nebulized, Solu-Medrol 125 mg IV, Lasix 40 mg IV On re-evaluation, patient is sleeping but arousable, still on BiPAP with good oxygen saturation. Not in respiratory distress. Plan is to admit the patient for respiratory support and diuresis. Time of 1ST Reevaluation: 12:10 Reevaluation 1ST: Unchanged Time of 2ND Reevaluation: 21:54 Reevaluation 2ND: Improved Patient Education/Counseling: Diagnosis, Treatment, Other (need for admission ) Family Education/Counseling: No Family Present Departure 1 Departure Time of Disposition: 21:54 Impression: Primary Impression: Acute on chronic respiratory failure Qualified Codes: J96.20 - Acute and chronic respiratory failure, unspecified whether with hypoxia or hypercapnia Additional Impressions: CHF exacerbation Qualified Codes: I50.9 - Heart failure, unspecified COPD exacerbation Disposition: ADMITTED INPATIENT Admit to: Tele Condition: Guarded Critical Care Note Critical Care Time?: Yes (45 min-critical care time only) Critical care comment: Critical care time including multiple bedside re-evaluations, review of lab and imaging studies, and discussion of the case with the admitting provider. Patient is high risk for respiratory and/or hemodynamic decompensation. Stability Stability form required: No Heart Score Heart Score: Heart Score Response (Comments) Value History N/A 0 EKG N/A 0 Age N/A 0 Risk Factors N/A 0 Troponin N/A 0 Total 0 I personally scribed for CATALINA BOWENS MD ([email or web address]) on 08/11/24 at 20:38. Electronically submitted by Alessio Page ([email or web address]). CATALINA BOWENS MD August 11, 2024 20:38
[2024-08-11 20:44] LABS: Potassium 3.6 mmol/L (3.5-5.1)
[2024-08-11 20:45] LABS: Anion Gap 4 (5-15)
[2024-08-11 20:50] LABS: BUN/Creatinine Ratio 9.9 (10.0-20.0); Blood Urea Nitrogen 11 mg/dL (9-23)
[2024-08-11] MEDS: methylPREDNISolone SOD SUCC 125 MG/2 ML VL IV ONE (21:05)
[2024-08-11 21:07] LABS: Calcium 8.1 mg/dL (8.7-10.4); Carbon Dioxide 36 mmol/L (20-31); Chloride 95 mmol/L (98-107); Glucose 123 mg/dL (74-106); Sodium 135 mmol/L (136-145)
[2024-08-11] MEDS ORDERED: ONDANSETRON HCL 4 MG/2 ML VIAL IV PRN (22:30)
[2024-08-11] MEDS ORDERED: MORPHINE SULFATE INJ 2 MG/ml SYRG IV PRN (22:30)
[2024-08-11] MEDS ORDERED: NITROGLYCERIN 0.4 MG SL TAB SL PRN (22:30)
[2024-08-11] MEDS ORDERED: ACETAMINOPHEN 325 MG TAB PO PRN (22:30)
[2024-08-11] MEDS ORDERED: ALBUTEROL SULF 2.5 MG/0.5ML(0.5%) NEB SOLN NEB PRN (22:30)
[2024-08-11] MEDS ORDERED: IPRATROPIUM BROM 0.5 MG/2.5ML INH SOL NEB PRN (22:30)
[2024-08-11 23:01] LABS: INR 1.25 (0.9-1.15); Partial Thromboplastin Time 33.9 SEC (24.5-34.5)
[2024-08-11] MEDS: FUROSEMIDE 40 MG/4 ML VIAL IV ONE (23:26)
[2024-08-11 23:59] VITALS: BP 114/59; PULSE 100; RESP 22; O2SAT 97
[2024-08-12] VITALS (21 sets, daily range): BP systolic 105–129; BP diastolic 42–64; PULSE 58–117; RESP 12–24; TEMP 97.2–97.3; O2SAT 72–99
[2024-08-12] MEDS: LEVALBUTEROL HCL 1.25 MG/3 ML NEB NEB SCH ×2 (00:19→18:58)
--- NOTE | 2024-08-12 01:04 | DVHHP2 ---
History of Present Illness Reason for Visit: Shortness for breath History of Present Illness 74-year-old male presents for evaluation of shortness for breath. Patient reports a one day history of worsening shortness for breath with associated wheezing and chest tightness. Denies cough or fever. No other acute complaints reported Past Medical History COPD, congestive heart failure, dyslipidemia, hypertension, mi, PE, AFib, BPH Past Surgical History Heart ablation, bronchoscopy Family History Noncontributory Smoke: No ALCOHOL: occassional Drugs: None Lives: with Family Review of Systems Review of Systems Review of systems are currently negative otherwise addressed in HPI. Allergies: Coded Allergies: NO KNOWN ALLERGIES (Unverified , 08/04/19) Medications Current Medications Medications Dose Ordered Sig/Saige Route Start Time Stop Time Status Last Admin Dose Admin Levalbuterol HCl 1.25 mg Q6HR NEB 08/12/24 00:00 08/12/24 00:19 1.25 MG Warfarin Sodium RX PROTOCOL PER PHARMACY PO 08/11/24 22:30 UNV Amiodarone HCl 200 mg DAILY PO 08/12/24 10:00 Atorvastatin Calcium 40 mg HS PO 08/12/24 22:00 Aspirin 81 mg DAILY PO 08/12/24 10:00 Furosemide 20 mg BIDD IV 08/12/24 06:00 Hydrochlorothiazide 12.5 mg DAILY PO 08/12/24 10:00 Levothyroxine Sodium 100 mcg QAM@0600 PO 08/12/24 06:00 Metoprolol Tartrate 25 mg BID PO 08/12/24 10:00 Albuterol 2.5 mg Q6HPRN PRN NEB 08/11/24 22:30 Ipratropium [place] 0.5 mg Q6HPRN PRN NEB 08/11/24 22:30 Methylprednisolone Sodium Succinate 40 mg BID IV 08/12/24 10:00 Ondansetron HCl 4 mg Q4HP PRN IV 08/11/24 22:30 Acetaminophen 650 mg Q6HP PRN PO 08/11/24 22:30 Nitroglycerin 0.4 mg Q5MINP PRN SL 08/11/24 22:30 Morphine Sulfate 2 mg Q30M PRN IV 08/11/24 22:30 Exam Vital Signs Vital Signs Date Time Temp Pulse Resp B/P (MAP) Pulse Ox O2 Delivery O2 Flow Rate FiO2 08/12/24 00:25 100 18 99 08/12/24 00:16 Nasal Cannula 4.0 08/12/24 00:16 36 08/11/24 23:59 114/59 08/11/24 19:54 97.6 97.6 Exam Gen: 74-year-old male in moderate distress Skin: Warm, dry, normal color and texture, no rash. HEENT: Normocephalic atraumatic, mucous membranes moist and pink. Neck: Cervical and supraclavicular nodes normal without enlargement, trachea is midline, thyroid gland is normal without masses. Pulmonary: Bilateral wheeze Cardiac: Regular rate and rhythm. No murmur Abdomen: Soft, nontender, nondistended, bowel sounds present all 4 quadrants, no guarding, no rigidity, no organomegaly. Extremities: No cyanosis, clubbing, no edema Neuro: Cranial nerves II through XII grossly intact, normal affect and speech, no focal motor deficits. Labs/Xrays ORDERING PHYSICIAN: JOEY GEE DNP PROCEDURE(s): ECIDC - ECHO 2D MODE CARDIAC DOP REASON: Elevated BNP ORDER NUMBER(s): [id number], ACCESSION NUMBER(s): [id number] APPROVED REPORT EXAM: Two-dimensional and M-mode echocardiogram with Doppler and color Doppler. Blood Pressure: 119/41 mmHg INDICATION ELEVATED BNP RISK FACTORS Height: 6'0, Weight: 195 DIMENSIONS LVDd 4.4 (3.8-5.7cm) LA (2D) 3.7 (1.9-4.0cm) Aortic Root 3.6 (2.0- 3.7cm) LVDs 3.2 (2.5-4.0cm) LA (MM) (1.9-4.0cm) Aortic Cusp Exc 1.8 (1.5- 2.0cm) EF (%) 60.0 (55-70%) Rt. Atrium 3.8 (1.9-4.0cm) Asc. Aorta cm IVSd 1.0 (0.7-1.1cm) RV (D) (1.8-2.4cm) PWd 1.1 (0.7-1.1cm) Mitral Valve Mitral Mitral Stenosis E/A ratio 0.0 2D MVA cm2 Aortic Valve Aortic Valve Aortic Stenosis V1 1.29m/s AO Mean GR. 8mmHg V2 1.88m/s AO Peak GR. 14mmHg LVOT Diameter 2.4 (1.8-2.4cm) Doppler JOVANNI 3.10cm2 Tricuspid Valve TR Velocity 2.65m/s RVSP 31mmHg LEFT VENTRICLE Normal left ventricular size. Wall thickness is normal. Ejection fraction is normal and is estimated at 60% based on visual estimate. There is no gross wall motion abnormalities but endocardial definition is suboptimal. Diastolic function is indeterminate. RIGHT VENTRICLE The right ventricle is likely mildly dilated in size. Right ventricular systolic function is normal. ATRIA Both atria are likely of normal size. MITRAL VALVE Mitral valve is normal structure and function. No significant mitral regurgitation. PULMONIC VALVE Not well visualized. TRICUSPID VALVE Normal structure and function. There is trace tricuspid regurgitation. PA systolic pressure is estimated at 35 mm Hg. AORTIC VALVE Leaflets appear to be mildly calcified. No hemodynamically significant stenosis or regurgitation. GREAT VESSELS Aortic root is of normal size. Proximal ascending aorta is not well visualized. PERICARDIAL EFFUSION No significant pericardial effusion. IVC is of normal size and collapses normally with inspiration. Other Information Quality : Technically Limited Rhythm : Technically limited study due to patient position.body habitus. Conclusion The study is technically limited. Normal left ventricular size and systolic function. Right ventricle is likely mildly dilated in size with normal systolic function. Mildly calcified aortic valve with no significant stenosis. PA systolic pressure is estimated at 35 mm Hg. No pericardial effusion. SIGNED BY: KRISTY CALLES MD SIGNED DATE/TIME: 03/28/24 1110 ORDERING PHYSICIAN: CATALINA BOWENS MD PROCEDURE(s): CXRP - CHEST PORTABLE REASON: sob ORDER NUMBER(s): [id number], ACCESSION NUMBER(s): [id number] INDICATION: sob TECHNIQUE: Frontal view of the chest. COMPARISON: XY CHEST XRAY 1 VIEW on DOS: 04/01/24, XY CHEST PORTABLE on DOS: 03/30/24, XY CHEST PORTABLE on DOS: 03/27/24, CHEST PORTABLE on DOS: 02/28/22, CHEST PORTABLE on DOS: 08/04/19 FINDINGS: Findings:. The heart there is cardiomegaly with mild interstitial pulmonary edema. There is no evidence of airspace consolidation.. The bony structures of the chest are intact without fracture. IMPRESSION: 1. Cardiomegaly with interstitial pulmonary edema Labs Test 08/11/24 22:42 08/11/24 20:58 08/11/24 19:56 08/11/24 19:42 Range/Units Troponin I High Sensitivity 116 *H </=54 ng/L Prothrombin Time 13.0 H 9.3-11.8 sec Prothrombin Time INR 1.25 H 0.9-1.15 Activated Partial Thromboplast Time 33.9 24.5-34.5 SEC Blood Gas Specimen Type Arterial Blood Gas Sample Site Left radial Blood Gas Patient Temperature 37.0 Arterial Blood Date Drawn [id number] Arterial Blood pH 7.404 7.350-7.450 Arterial Blood Partial Pressure CO2 57.9 H 35.0-48.0 mmHg Arterial Blood Partial Pressure O2 69.8 L 83.0-108.0 mmHg Arterial Blood HCO3 35.4 H 21.0-28.0 mmol/L Arterial Blood Oxygen Saturation 92.3 L 94.0-98.0 % Arterial Blood Base Excess 9.1 H -2.0-3.0 mmol/L Arterial Blood Oxyhemoglobin 91.6 L 94.0-98.0 % Arterial Blood Carboxyhemoglobin 0.4 L 0.5-1.5 % Arterial Blood Methemoglobin 0.4 0.0-1.5 % Albert Test Yes Blood Gas Total Hemoglobin 10.20 L 13.5-17.5 g/dL Blood Gas Set Respiration Rate 14.0 Blood Gas Modality Mask - bipap Blood Gas Spontaneous Rate 18 FiO2 % 40.0 Blood Gas Tidal Volume 794.0 Blood Gas Spontaneous Tidal Volume 794 Blood Gas EPAP 5 Blood Gas IPAP 10 Specimen Drawn By Sunny logan rt White Blood Count 6.5 4.4-10.8 10^3/uL Red Blood Count 3.69 L 4.5-5.90 10^6/uL Hemoglobin 10.5 L 13.5-17.5 g/dL Hematocrit 31.4 L 41.0-53.0 % Mean Corpuscular Volume 85.2 80.0-100.0 fL Mean Corpuscular Hemoglobin 28.6 28.0-32.0 pg Mean Corpuscular Hemoglobin Concent 33.5 32.0-36.0 g/dL Red Cell Distribution Width 15.4 H 11.8-14.3 % Platelet Count 211 140-450 10^3/uL Mean Platelet Volume 7.4 6.9-10.8 fL Neutrophils (%) (Auto) 64.0 37.0-80.0 % Lymphocytes (%) (Auto) 24.2 10.0-50.0 % Monocytes (%) (Auto) 9.4 0.0-12.0 % Eosinophils (%) (Auto) 2.0 0.0-7.0 % Basophils (%) (Auto) 0.4 0.0-2.0 % Neutrophils # (Auto) 4.2 1.6-8.6 10 ^3/uL Lymphocytes # (Auto) 1.6 0.4-5.4 10 ^3/uL Monocytes # (Auto) 0.6 0-1.3 10 ^3/uL Eosinophils # (Auto) 0.1 0-0.8 10 ^3/uL Basophils # (Auto) 0 0-0.2 10 ^3/uL Nucleated Red Blood Cells 0.2 % Sodium Level 135 L 136-145 mmol/L Potassium Level 3.6 3.5-5.1 mmol/L Chloride Level 95 L 98-107 mmol/L Carbon Dioxide Level 36 H 20-31 mmol/L Anion Gap 4 L 5-15 Blood Urea Nitrogen 11 9-23 mg/dL Creatinine 1.11 0.700-1.30 mg/dL Glomerular Filtration Rate Calc 71 >90 mL/min BUN/Creatinine Ratio 9.9 L 10.0-20.0 Serum Glucose 123 H 74-106 mg/dL Calcium Level 8.1 L 8.7-10.4 mg/dL B-Type Natriuretic Peptide 803.67 0-100 pg/mL Assessment/Plan Assessment/Plan Assessment Acute on chronic congestive heart failure COPD exacerbation Acute hypoxic respiratory failure Pain accelerated hypertension Plan Admit the patient to [facility] to the hospitalist Gordon delgado Azithromycin IV Lasix Resume home medications Continue treatment per orders. Plan discussed with: Patient My Orders Orders - WHITNEY BANSAL AGACNP Procedure Category Date Status Time Warfarin Per Rx PHA 08/11/24 Pending Protocol (Coumadin 22:30 Amiodarone Tablet PHA 08/12/24 In Process (Cordarone Tablet) 10:00 Atorvastatin (Lipitor) PHA 08/12/24 In Process 22:00 Aspirin Tablet PHA 08/12/24 In Process 10:00 Furosemide Injection PHA 08/12/24 In Process (Lasix Injection) 06:00 Hydrochlorothiazide PHA 08/12/24 In Process Tablet (Hydrochlorot 10:00 Levothyroxine Tablet PHA 08/12/24 In Process (Synthroid Tablet) 06:00 Metoprolol Tartrate PHA 08/12/24 In Process Tablet (Lopressor Ta 10:00 Basic Metabolic Panel LAB 08/12/24 Logged 04:00 Albuterol Medneb PHA 08/11/24 In Process (Ventolin Medneb) 22:30 Ipratropium Medneb PHA 08/11/24 In Process (Atrovent Medneb) 22:30 Methylprednisolone PHA 08/12/24 In Process Sod Succ (Solu Medrol 10:00 Admit ADMIT 08/11/24 Transmitted 22:27 Ondansetron Hcl PHA 08/11/24 In Process (Zofran) 22:30 Complete Blood Count LAB 08/12/24 Logged 04:00 Cardiac DIET 08/12/24 Transmitted Diet-2gna,Lofat,Lochol Breakfast Condition: Serious CHASE 08/11/24 In Process 22:27 Acetaminophen Tablet PHA 08/11/24 In Process (Tylenol Tablet) 22:30 Bedrest With Bathroom CHASE 08/11/24 In Process Privileg 22:27 Nitroglycerin PHA 08/11/24 In Process Sublingual (Ntrostat 22:30 Morphine Sulfate PHA 08/11/24 In Process Injection 22:30 Stat Ekg For Chest CHASE 08/11/24 In Process Pain 22:27 Notify Md Of Changes CHASE 08/11/24 In Process From Base 22:27 Major Sales Associate For CHASE 08/11/24 In Process 24 Hours 22:27 Emergency Dysrhythmia CHASE 08/11/24 In Process Protocol 22:27 Rhythm Strips Once CHASE 08/11/24 In Process Every Shift 22:27 Oxygen By Nasal RT 08/11/24 Transmitted Cannula 22:27 Date of Service: August 11, 2024 Billing Provider: WHITNEY BANSAL Common Visit Codes: [id number] CARE 30-74 MIN WHITNEY BANSAL August 12, 2024 01:04
[2024-08-12] MEDS: LEVOTHYROXINE SODIUM 100 MCG TAB PO SCH (06:14)
[2024-08-12] MEDS: FUROSEMIDE 20 MG/2 ML VIAL IV SCH (06:14)
[2024-08-12 06:26] LABS: Basophils # (auto) 0 10 ^3/uL (0-0.2); Basophils % (auto) 0.1 % (0.0-2.0); Eosinophils # (auto) 0 10 ^3/uL (0-0.8); Eosinophils % (auto) 0.1 % (0.0-7.0); Hematocrit 30.1 % (41.0-53.0); Hemoglobin 10.1 g/dL (13.5-17.5); Lymphocytes # (auto) 0.2 10 ^3/uL (0.4-5.4); Lymphocytes % (auto) 6.7 % (10.0-50.0); Mean Corpuscular Hemoglobin 28.7 pg (28.0-32.0); Mean Corpuscular Hgb Conc. 33.6 g/dL (32.0-36.0); Mean Corpuscular Volume 85.4 fL (80.0-100.0); Monocytes # (auto) 0.1 10 ^3/uL (0-1.3); Monocytes % (auto) 2.2 % (0.0-12.0); Neutrophils # (auto) 3.2 10 ^3/uL (1.6-8.6); Neutrophils % (auto) 90.9 % (37.0-80.0); Platelet Count (auto) 179 10^3/uL (140-450); Red Blood Cells 3.53 10^6/uL (4.5-5.90); Red Cell Distribution Width 15.5 % (11.8-14.3); White Blood Cell 3.6 10^3/uL (4.4-10.8)
[2024-08-12 06:39] LABS: Anion Gap 10 (5-15)
[2024-08-12 06:58] LABS: BUN/Creatinine Ratio 37.5 (10.0-20.0); Blood Urea Nitrogen 39 mg/dL (9-23); Calcium 8.4 mg/dL (8.7-10.4); Carbon Dioxide 31 mmol/L (20-31); Chloride 94 mmol/L (98-107); Glucose 176 mg/dL (74-106); Potassium 3.5 mmol/L (3.5-5.1); Sodium 135 mmol/L (136-145)
[2024-08-12] MEDS: METOPROLOL TARTRATE 25 MG TAB PO SCH (10:00)
[2024-08-12] MEDS: AZITHROMYCIN 500MG/ 250ML 250 ML IV SCH (10:04)
[2024-08-12] MEDS: methylPREDNISolone SOD SUCC 40 MG/ML VL IV SCH (10:04)
[2024-08-12] MEDS: hydroCHLOROthiazide 25 MG TAB PO SCH (10:05)
[2024-08-12] MEDS: ASPirin 81 mg TAB PO SCH (10:05)
[2024-08-12] MEDS: AMIODARONE HCL 200 MG TAB PO SCH (10:05)
[2024-08-12 14:18] LABS: INR 1.13 (0.9-1.15); Partial Thromboplastin Time 29.3 SEC (24.5-34.5); Prothrombin Time 11.8 sec (9.3-11.8)
--- NOTE | 2024-08-12 17:08 | DVHPN2 ---
Subjective Patient reports that his shortness of breath has improved Reviewed: Care Plan, H&P, Labs, Medications Changes from previous H/P or p: No Changes General: Per HPI Objective Vitals Vital Signs Date Time Temp Pulse Resp B/P (MAP) Pulse Ox O2 Delivery O2 Flow Rate FiO2 08/12/24 16:57 121/42 08/12/24 16:00 66 08/12/24 16:00 97.2 22 91 97.2 08/12/24 15:00 Nasal Cannula* 3 32 Intake/Output Intake and Output 08/12/24 07:00 Intake Total 240 ml Output Total 800 ml Balance -560 ml Intake Oral 240 ml Output Urine Total 800 ml General Appearance: Alert, Oriented X3, Cooperative, mild distress HEENT: Atraumatic, PERRLA Cardiovascular: Normal S1, Normal S2 Abdomen: Normal bowel sounds, Soft Neuro: Normal gait, Normal speech Skin: Dry, Intact Psych/Mental Status: Mental status NL, Mood NL Medications Current Medications Medications Dose Ordered Sig/Saige Route Start Time Stop Time Status Last Admin Dose Admin Amiodarone HCl 200 mg DAILY PO 08/12/24 10:00 08/12/24 10:05 200 MG Atorvastatin Calcium 40 mg HS PO 08/12/24 22:00 Aspirin 81 mg DAILY PO 08/12/24 10:00 08/12/24 10:05 81 MG Furosemide 20 mg BIDD IV 08/12/24 06:00 08/12/24 16:57 20 MG Hydrochlorothiazide 12.5 mg DAILY PO 08/12/24 10:00 08/12/24 10:05 12.5 MG Levothyroxine Sodium 100 mcg QAM@0600 PO 08/12/24 06:00 08/12/24 06:14 100 MCG Metoprolol Tartrate 25 mg BID PO 08/12/24 10:00 Albuterol 2.5 mg Q6HPRN PRN NEB 08/11/24 22:30 Methylprednisolone Sodium Succinate 40 mg BID IV 08/12/24 10:00 08/12/24 10:04 40 MG Ondansetron HCl 4 mg Q4HP PRN IV 08/11/24 22:30 Acetaminophen 650 mg Q6HP PRN PO 08/11/24 22:30 Nitroglycerin 0.4 mg Q5MINP PRN SL 08/11/24 22:30 Morphine Sulfate 2 mg Q30M PRN IV 08/11/24 22:30 Azithromycin 250 ml @ 125 mls/hr DAILY IV 08/12/24 10:00 08/12/24 10:04 125 MLS/HR Ipratropium Shelly 0.5 mg Q6HWA NEB 08/12/24 18:00 UNV Levalbuterol HCl 1.25 mg Q6HWA NEB 08/12/24 18:00 UNV Rivaroxaban 20 mg QPM PO 08/12/24 18:00 UNV Laboratory Results Laboratory Tests 08/12/24 05:05 Chemistry Test 08/11/24 19:42 08/12/24 05:05 Calcium Level 8.1 mg/dL (8.7-10.4) L 8.4 mg/dL (8.7-10.4) L Coagulation Test 08/11/24 20:58 08/12/24 13:57 Prothrombin Time 13.0 sec (9.3-11.8) H 11.8 sec (9.3-11.8) Prothrombin Time INR 1.25 (0.9-1.15) H 1.13 (0.9-1.15) Activated Partial Thromboplast Time 33.9 SEC (24.5-34.5) 29.3 SEC (24.5-34.5) Cardiac Markers Test 08/11/24 19:42 B-Type Natriuretic Peptide 803.67 pg/mL (0-100) Blood Gas Results Test 08/11/24 19:56 Arterial Blood pH 7.404 (7.350-7.450) FiO2 % 40.0 Labs and/or images reviewed: Labs reviewed by me, Image(s) reviewed by me Assessment/Plan Assessment/Plan Impression: -acute on chronic hypoxic respiratory failure -questionable COPD with exacerbation -aspergillosis with current treatment with itraconazole -NSTEMI, questionable type 2 -AFib with RVR, status post AFib ablation -acute decompensated heart failure, probable diastolic in nature -BPH, awaiting prostate artery ablation Plan: -patient having improvement with respiratory symptoms, now off BiPAP. Currently on nasal cannula at 2-3 L/min -pulmonology consultation -ID consultation -cardiology consultation -recheck troponin, if up trending, probably will need repeat echocardiogram -restart anticoagulation with Xarelto, stop Coumadin order -bronchodilators with Xopenex and Atrovent. Start Pulmicort b.i.d. -continue IV Solu-Medrol 40 mg twice a day -PPI -repeat labs, chest x-ray, ABG in a.m. -restart after itraconazole 200 mg p.o. b.i.d. Total time spent with patient discussing and formulating plan of care: 35 minutes. This medical document was created using an electronic medical record system with [employer] dictation system. Although this document has been carefully reviewed, there may still be some phonetic and typographical errors. These areas are purely typographical due to imperfections of the software programs, and do not reflect any compromise in the patient's medical care. Plan discussed with: Patient, Other (RN) My Orders Orders - JELENA MUNOZ NP Procedure Category Date Status Time Troponin-I Hs LAB 08/12/24 In Process 16:12 Complete Blood Count LAB 08/13/24 Verified 04:00 Comprehensive LAB 08/13/24 Verified Metabolic Panel 04:00 Transfer Orders XFER 08/12/24 Transmitted 16:13 Ipratropium Medneb PHA 08/12/24 Logged (Atrovent Medneb) 18:00 Levalbuterol Hcl PHA 08/12/24 Logged (Xopenex Medneb) 18:00 Rivaroxaban Tablet PHA 08/12/24 Logged (Xarelto Tablet) 18:00 * Infectious [place]- Dr. CONS 08/12/24 Transmitted Dylan Perry 16:55 Itraconazole PHA 08/12/24 Verified (Sporanox) 22:00 * Cardiology Consult CONS 08/12/24 Verified 16:58 Budesonide PHA 08/12/24 Verified (Inhalation) 22:00 Chest Xray 1 View XY 08/13/24 Verified 04:00 Date of Service: August 12, 2024 Billing Provider: JELENA MUNOZ NP Common Visit Codes: [id number] INP/OBS CARE(HIGH) JELENA MUNOZ NP August 12, 2024 17:08
[2024-08-12] MEDS: cefTRIAXone 1GM/50ML D5W 50 ML IV SCH (17:57)
[2024-08-12] MEDS: RIVAROXABAN 20 MG TAB PO SCH (17:57)
[2024-08-12] MEDS: IPRATROPIUM BROM 0.5 MG/2.5ML INH SOL NEB SCH (18:58)
[2024-08-12] MEDS: ATORVASTATIN 20 MG TAB PO SCH (22:58)
[2024-08-12] MEDS: ITRACONAZOLE 100 MG CAP PO SCH (23:11)
[2024-08-12] MEDS: BUDESONIDE (INHALATION) 0.5 MG/2 ML NEB NEB SCH (23:40)
[2024-08-13] VITALS (17 sets, daily range): BP systolic 94–133; BP diastolic 50–73; PULSE 59–101; RESP 14–20; TEMP 96.5–98; O2SAT 94–100
[2024-08-13] MEDS ORDERED: RIV20T PO (03:09)
[2024-08-13] MEDS ORDERED: MELA3TAB27 PO (03:33)
[2024-08-13] MEDS: MELATONIN 5 MG TAB PO PRN (03:37)
--- NOTE | 2024-08-13 06:41 | DVH ---
EXAM: XR Chest, 1 View CLINICAL INDICATION: pna TECHNIQUE: Frontal view of the chest. COMPARISON: XY CHEST PORTABLE on DOS: 08/11/24, XY CHEST XRAY 1 VIEW on DOS: 04/01/24, XY CHEST PORTAB LE on DOS: 03/30/24, XY CHEST PORTABLE on DOS: 03/27/24, CHEST PORTABLE on DOS: 02/28/22 FINDINGS: LUNGS AND PLEURAL SPACES: Left basilar atelectasis or pneumonia. No pneumothorax. HEART: Unremarkable. No cardiomegaly. MEDIASTINUM: Unremarkable. Normal mediastinal contour. BONES/JOINTS: Unremarkable. No acute fracture. OTHER FINDINGS: . . IMPRESSION: Left basilar atelectasis or pneumonia.
[2024-08-13 07:24] LABS: Basophils # (auto) 0 10 ^3/uL (0-0.2); Basophils % (auto) 0.2 % (0.0-2.0); Eosinophils # (auto) 0 10 ^3/uL (0-0.8); Hematocrit 28.5 % (41.0-53.0); Hemoglobin 9.5 g/dL (13.5-17.5); Lymphocytes # (auto) 0.4 10 ^3/uL (0.4-5.4); Lymphocytes % (auto) 4.1 % (10.0-50.0); Mean Corpuscular Hemoglobin 27.8 pg (28.0-32.0); Mean Corpuscular Hgb Conc. 33.4 g/dL (32.0-36.0); Mean Corpuscular Volume 83.3 fL (80.0-100.0); Monocytes # (auto) 0.4 10 ^3/uL (0-1.3); Monocytes % (auto) 4.1 % (0.0-12.0); Neutrophils # (auto) 9.7 10 ^3/uL (1.6-8.6); Neutrophils % (auto) 91.6 % (37.0-80.0); Platelet Count (auto) 224 10^3/uL (140-450); Red Blood Cells 3.42 10^6/uL (4.5-5.90); Red Cell Distribution Width 15.3 % (11.8-14.3); White Blood Cell 10.6 10^3/uL (4.4-10.8)
[2024-08-13 07:38] LABS: Alanine Aminotransferase 32 U/L (7-40); Albumin 3.3 g/dL (3.2-4.8); Alkaline Phosphatase 74 U/L (46-116); Anion Gap 7 (5-15); BUN/Creatinine Ratio 30.1 (10.0-20.0); Total Protein 7.2 g/dL (5.7-8.2)
[2024-08-13 07:39] LABS: Bilirubin, Total 0.4 mg/dL (0.2-1.0)
[2024-08-13 07:41] LABS: Blood Urea Nitrogen 31 mg/dL (9-23); Calcium 8.3 mg/dL (8.7-10.4); Carbon Dioxide 34 mmol/L (20-31); Chloride 93 mmol/L (98-107); Glucose 144 mg/dL (74-106); Potassium 3.1 mmol/L (3.5-5.1); Sodium 134 mmol/L (136-145)
[2024-08-13 07:48] LABS: Urine Bacteria None Seen /hpf (None Seen)
[2024-08-13 07:53] LABS: Urine Blood TRACE /uL (Negative); Urine Clarity Clear (Clear); Urine Color Colorless (Yellow); Urine Protein, UAD Negative (Negative); Urine Specific Gravity 1.006 (1.001-1.035); Urine Squamous Epithelial Cell None Seen /hpf (<5); Urine Urobilinogen Normal (Negative); Urine WBC < 1 /HPF (0-3); Urine pH 7.5 (5.0-9.0)
[2024-08-13 07:58] LABS: Aspartate Aminotransferase 56 U/L (13-40)
--- NOTE | 2024-08-13 08:33 | DVHPN2 ---
Subjective Patient reporting having some chest discomfort. Reviewed: Care Plan, H&P, Labs, Medications Changes from previous H/P or p: No Changes General: Per HPI Objective Vitals Vital Signs Date Time Temp Pulse Resp B/P (MAP) Pulse Ox O2 Delivery O2 Flow Rate FiO2 08/13/24 07:51 93 16 99 08/13/24 07:41 Nasal Cannula* 4 36 08/13/24 05:25 108/50 08/13/24 05:00 97.8 97.8 Intake/Output Intake and Output 08/13/24 07:00 Intake Total 1280 ml Output Total 3200 ml Balance -1920 ml Intake Oral 1280 ml Output Urine Total 3200 ml Stool Total 0 ml General Appearance: Alert, Oriented X3, Cooperative, mild distress HEENT: Atraumatic, PERRLA Cardiovascular: Normal S1, Normal S2 Abdomen: Normal bowel sounds, Soft Neuro: Normal gait, Normal speech Skin: Dry, Intact Psych/Mental Status: Mental status NL, Mood NL Medications Current Medications Medications Dose Ordered Sig/Saige Route Start Time Stop Time Status Last Admin Dose Admin Amiodarone HCl 200 mg DAILY PO 08/12/24 10:00 08/12/24 10:05 200 MG Atorvastatin Calcium 40 mg HS PO 08/12/24 22:00 08/12/24 22:58 40 MG Aspirin 81 mg DAILY PO 08/12/24 10:00 08/12/24 10:05 81 MG Furosemide 20 mg BIDD IV 08/12/24 06:00 08/12/24 16:57 20 MG Hydrochlorothiazide 12.5 mg DAILY PO 08/12/24 10:00 08/12/24 10:05 12.5 MG Levothyroxine Sodium 100 mcg QAM@0600 PO 08/12/24 06:00 08/13/24 05:12 100 MCG Metoprolol Tartrate 25 mg BID PO 08/12/24 10:00 08/12/24 22:58 25 MG Albuterol 2.5 mg Q6HPRN PRN NEB 08/11/24 22:30 Methylprednisolone Sodium Succinate 40 mg BID IV 08/12/24 10:00 08/12/24 22:59 40 MG Ondansetron HCl 4 mg Q4HP PRN IV 08/11/24 22:30 Acetaminophen 650 mg Q6HP PRN PO 08/11/24 22:30 Nitroglycerin 0.4 mg Q5MINP PRN SL 08/11/24 22:30 Morphine Sulfate 2 mg Q30M PRN IV 08/11/24 22:30 Azithromycin 250 ml @ 125 mls/hr DAILY IV 08/12/24 10:00 08/12/24 10:04 125 MLS/HR Ipratropium Martin 0.5 mg Q6HWA NEB 08/12/24 18:00 08/13/24 07:47 0.5 MG Levalbuterol HCl 1.25 mg Q6HWA NEB 08/12/24 18:00 08/13/24 07:47 1.25 MG Rivaroxaban 20 mg QPM PO 08/12/24 18:00 08/12/24 17:57 20 MG Itraconazole 200 mg Q12HR PO 08/12/24 22:00 Budesonide 0.5 mg BID NEB 08/12/24 22:00 08/13/24 07:48 0.5 MG Ceftriaxone Sodium 50 ml @ 100 mls/hr DAILY@09 IV 08/12/24 17:41 08/12/24 17:57 100 MLS/HR Melatonin 10 mg HS PRN PO 08/13/24 03:30 08/13/24 03:37 10 MG Tamsulosin HCl 0.4 mg QPM PO 08/13/24 18:00 Laboratory Results Laboratory Tests 08/13/24 06:35 Chemistry Test 08/13/24 06:35 Albumin 3.3 g/dL (3.2-4.8) Calcium Level 8.3 mg/dL (8.7-10.4) L Magnesium Level Pending Total Protein 7.2 g/dL (5.7-8.2) Coagulation Test 08/12/24 13:57 Prothrombin Time 11.8 sec (9.3-11.8) Prothrombin Time INR 1.13 (0.9-1.15) Activated Partial Thromboplast Time 29.3 SEC (24.5-34.5) LFT Test 08/13/24 06:35 Alanine Aminotransferase (ALT) 32 U/L (7-40) Alkaline Phosphatase 74 U/L (46-116) Aspartate Amino Transferase (AST) 56 U/L (13-40) H Total Bilirubin 0.4 mg/dL (0.2-1.0) Urinalysis Test 08/13/24 07:41 Urine Color Colorless (Yellow) Urine Clarity Clear (Clear) Urine pH 7.5 (5.0-9.0) Urine Specific [place] 1.006 (1.001-1.035) Urine Protein Negative (Negative) Urine Ketones Negative (Negative) Urine Blood Trace /uL (Negative) H Urine Nitrite Negative (Negative) Urine Bilirubin Negative (Negative) Urine Urobilinogen Normal mg/dL (Negative) Urine Leukocyte Esterase Negative /uL (Negative) Urine RBC None seen /hpf (0 - 3) Urine Microscopic WBC < 1 /HPF (0-3) Urine Squamous Epithelial Cells None seen /hpf (<5) Urine Bacteria None seen /hpf (None Seen) Urine Glucose Normal mg/dL (Normal) Labs and/or images reviewed: Labs reviewed by me, Image(s) reviewed by me Assessment/Plan Assessment/Plan Impression: -acute on chronic hypoxic respiratory failure -questionable COPD with exacerbation -aspergillosis with current treatment with itraconazole -NSTEMI, questionable type 2 -AFib with RVR, status post AFib ablation -acute decompensated heart failure, probable diastolic in nature -BPH, awaiting prostate artery ablation Plan: -events: Patient continues to report having mild dyspnea, with improvement, but now reporting having chest discomfort that he attributes to congestion. Troponins are trending up. AFib/flutter is controlled. Patient was restarted on Xarelto yesterday. Pending cardiology and infectious disease consultation. Repeat chest x-ray today reveals left lower lobe opacities with improvement with pulmonary vascular congestion. Discussed findings with the patient. -pulmonology consultation -ID consultation -cardiology consultation -recheck troponin, if up trending, probably will need repeat echocardiogram -restart anticoagulation with Xarelto, stop Coumadin order -bronchodilators with Xopenex and Atrovent. Start Pulmicort b.i.d. -continue IV Solu-Medrol 40 mg twice a day -PPI -restart tamsulosin -repeat labs, chest x-ray, ABG in a.m. -continue itraconazole 200 mg p.o. b.i.d. Total time spent with patient discussing and formulating plan of care: 35 minutes. This medical document was created using an electronic medical record system with [employer]ation system. Although this document has been carefully reviewed, there may still be some phonetic and typographical errors. These areas are purely typographical due to imperfections of the software programs, and do not reflect any compromise in the patient's medical care. Plan discussed with: Patient, Other (RN) My Orders Orders - JELENA MUNOZ NP Procedure Category Date Status Time Transfer Orders XFER 08/12/24 Transmitted 16:13 Ipratropium Medneb PHA 08/12/24 In Process (Atrovent Medneb) 18:00 Levalbuterol Hcl PHA 08/12/24 In Process (Xopenex Medneb) 18:00 Rivaroxaban Tablet PHA 08/12/24 In Process (Xarelto Tablet) 18:00 * Infectious [place]- CONS 08/12/24 Transmitted Dylan Perry 16:55 Itraconazole PHA 08/12/24 In Process (Sporanox) 22:00 * Cardiology Consult CONS 08/12/24 Transmitted 16:58 Budesonide PHA 08/12/24 In Process (Inhalation) 22:00 Chest Xray 1 View XY 08/13/24 Resulted 04:00 *Consult CONS 08/12/24 Transmitted / 17:02 Ceftriaxone 1gm/50ml PHA 08/12/24 In Process D5w (Rocephin) 17:41 Tamsulosin PHA 08/13/24 In Process Hydrochloride (Flomax) 18:00 Potassium Effervesent PHA 08/13/24 Logged Tab (Klor-Con/Ef) 08:30 Magnesium LAB 08/13/24 In Process 08:23 Date of Service: August 13, 2024 Billing Provider: JELENA MUNOZ NP Common Visit Codes: [id number] INP/OBS CARE(HIGH) JELENA MUNOZ NP August 13, 2024 08:33
[2024-08-13] MEDS: TAMSULOSIN HYDROCHLORIDE 0.4 MG CAP PO ONE (09:12)
[2024-08-13] MEDS: POTASSIUM EFFERVESENT TAB 25 MEQ PO ONE (09:12)
--- NOTE | 2024-08-13 10:48 | DVHINCON2 ---
Date of service: August 12, 2024 Referring Physician jeannine montano Reason for Consultation Respiratory failure History of Present Illness HPI Patient is a 74-year-old gentleman with a history of COPD, a patient of Dr. Khan, with recently diagnosed pulmonary aspergillosis. Patient presented with pneumonia like symptoms cough production of mucus and worsening shortness of breath. Patient seen in the emergency room. Due to increasing distress an ABG was obtained pH 7.40 pCO2 69 on supplemental oxygen. Chest x-ray shows left basilar infiltrate/pneumonia Home Meds Active Scripts Levofloxacin Hemihydrate (LEVAQUIN 500 MG) 500 Mg Tab, 1 TAB PO DAILY, #10 TAB Prov:OSKAR LONGORIA MD 04/01/24 Doxycycline (Monohydrate) (Doxycycline) 100 Mg Cap, 100 MG PO DAILY, #20 CAP Prov:OSKAR LONGORIA MD 04/01/24 Guaifenesin (Guaifenesin) 200 Mg Tab, 200 MG PO QID for 7 Days, #28 TAB Prov:RIO SULTANA MD 03/07/22 Prednisone (Prednisone) 20 Mg Tab, 20 MG PO BID for 5 Days, #10 TAB Prov:RIO SULTANA MD 03/07/22 Reported Medications Melatonin (KP MELATONIN) 3 Mg Tab, 40 MG PO DAILY for insomnia , TAB 08/13/24 Rivaroxaban (Xarelto Tablet) 20 Mg Tb, 20 MG PO DAILY, TAB 08/13/24 Furosemide (Furosemide) 40 Mg Tab, 40 MG PO DAILY for 30 Days 03/02/22 Warfarin Sodium (Warfarin Sodium) 2.5 Mg Tab, 2.5 MG PO DAILY for 30 Days, MG 03/02/22 Fluticasone-Salmeterol (Wixela Inhub 500-50 Mcg/Dose) 1 Aer Aer, 1 AER IN BID, AER 03/02/22 Albuterol Sulfate (Albuterol Sulfate) 0.083 % Neb, 1 VIAL NEB Q6HPRN PRN for SHORTNESS OF BREATH, #50 VIAL 08/05/19 Levothyroxine Sodium (Levothyroxine Sodium) 100 Mcg Tab, 100 MCG PO QAM for 30 Days, MCG 08/05/19 Hydrochlorothiazide (Hydrochlorothiazide) 12.5 Mg Cap, 12.5 MG PO DAILY, MG 08/05/19 Amiodarone Hcl (Amiodarone Hcl) 200 Mg Tab, 200 MG PO DAILY 08/05/19 Atorvastatin Calcium (ATORVASTATIN CALCIUM) 40 Mg Tab, 1 TAB PO HS, #30 TAB 5 Refills 08/05/19 Metoprolol Tartrate (Metoprolol Tartrate) 25 Mg Tab, 25 MG PO BID for 30 Days, MG 09/03/18 Tiotropium [place] Monohydrate (Spiriva Handihaler) 18 Mcg Cap, 18 MCG IN QAM, CAP 08/09/18 Albuterol Sulfate (VENTOLIN MDI) 90 Mcg Ih, 2 PUFF IN TID PRN for SHORTNESS OF BREATH for 30 Days, MCG 08/09/18 Aspirin (Aspir-Low) 81 Mg Tab, 81 MG PO DAILY for 30 Days, MG 08/09/18 Past Medical History Cardiac: No pertinent Hx Pulmonary: COPD Central Nervous System: No pertinent Hx GI: No pertinent Hx Hemotology/Oncology: No pertinent Hx Hepatobiliary: No pertinent Hx Psychiatric: No pertinent Hx Musculoskeletal: No pertinent Hx Rheumotologic: No pertinent Hx Infectious Disease: No peritnent Hx ENT: No pertinent Hx Renal/: No pertinent Hx Endocrine: No pertinent Hx Dermatology: No pertinent Hx Past Surgical History: No pertinent Hx Family History: No pertinent Hx Patient Family History: Diabetes mellitus GRANDMOTHER FHx: hypertension GRANDMOTHER Review of Systems Constitutional: Malaise, Weakness Ears, Nose, & Throat: No symptom reported Eyes: No symptom reported Pulmonary/Respiratory: Dyspnea, Cough Cardiovascular: No symptom reported Gastrointestinal: No symptom reported Genitourinary: No symptom reported Musculoskeletal: No symptom reported Skin: No symptom reported Psychiatric: No symptom reported Endocrine: No symptom reported Hemotologic/Lymphatic: No symptom reported H&P Exam Vital Signs Vital Signs Date Time Temp Pulse Resp B/P (MAP) Pulse Ox O2 Delivery O2 Flow Rate FiO2 08/13/24 10:18 117/63 08/13/24 10:17 100 08/13/24 09:00 15 96 08/13/24 08:00 97.5 97.5 08/13/24 08:00 Nasal Cannula* 4 36 General Appeara: Well developed, Well nourished, Normal Appearance Head Exam: Normal inspection Neck Exam: Normal inspection, Non-tender, Normal alignment Eye Exam: bilateral eye Normal inspection, bilateral eye PERRL Ear Exam: bilateral ear Auricle normal, bilateral ear Canal normal Nasal Exam: Normal inspection Mouth: Normal Inspection Pulmonary/Respiratory: Normal inspection, Normal breath sounds, Chest non- tender Cardiovascular/Chest: Normal inspection Peripheral Pulses: 4+ carotid (R), 4+ carotid (L) Abdominal Exam: Normal bowel sounds Rectal Exam: Deferred Labs/Xrays Labs Test 08/13/24 07:41 08/13/24 06:35 08/12/24 13:57 08/12/24 05:05 Range/Units Urine Color Colorless Yellow Urine Clarity Clear Clear Urine pH 7.5 5.0-9.0 Urine Specific [place] 1.006 1.001-1.035 Urine Protein Negative Negative Urine Ketones Negative Negative Urine Blood Trace H Negative /uL Urine Nitrite Negative Negative Urine Bilirubin Negative Negative Urine Urobilinogen Normal Negative mg/dL Urine Leukocyte Esterase Negative Negative /uL Urine RBC None seen 0 - 3 /hpf Urine Microscopic WBC < 1 0-3 /HPF Urine Squamous Epithelial Cells None seen <5 /hpf Urine Bacteria None seen None Seen /hpf Urine Glucose Normal Normal mg/dL White Blood Count 10.6 # 4.4-10.8 10^3/uL Red Blood Count 3.42 L 4.5-5.90 10^6/uL Hemoglobin 9.5 L 13.5-17.5 g/dL Hematocrit 28.5 L 41.0-53.0 % Mean Corpuscular Volume 83.3 80.0-100.0 fL Mean Corpuscular Hemoglobin 27.8 L 28.0-32.0 pg Mean Corpuscular Hemoglobin Concent 33.4 32.0-36.0 g/dL Red Cell Distribution Width 15.3 H 11.8-14.3 % Platelet Count 224 140-450 10^3/uL Mean Platelet Volume 7.4 6.9-10.8 fL Neutrophils (%) (Auto) 91.6 H 37.0-80.0 % Lymphocytes (%) (Auto) 4.1 L 10.0-50.0 % Monocytes (%) (Auto) 4.1 0.0-12.0 % Eosinophils (%) (Auto) 0.0 0.0-7.0 % Basophils (%) (Auto) 0.2 0.0-2.0 % Neutrophils # (Auto) 9.7 H 1.6-8.6 10 ^3/uL Lymphocytes # (Auto) 0.4 0.4-5.4 10 ^3/uL Monocytes # (Auto) 0.4 0-1.3 10 ^3/uL Eosinophils # (Auto) 0 0-0.8 10 ^3/uL Basophils # (Auto) 0 0-0.2 10 ^3/uL Nucleated Red Blood Cells 0.0 % Sodium Level 134 L 136-145 mmol/L Potassium Level 3.1 L 3.5-5.1 mmol/L Chloride Level 93 L 98-107 mmol/L Carbon Dioxide Level 34 H 20-31 mmol/L Anion Gap 7 5-15 Blood Urea Nitrogen 31 H 9-23 mg/dL Creatinine 1.03 0.700-1.30 mg/dL Glomerular Filtration Rate Calc 77 >90 mL/min BUN/Creatinine Ratio 30.1 H 10.0-20.0 Serum Glucose 144 H 74-106 mg/dL Calcium Level 8.3 L 8.7-10.4 mg/dL Magnesium Level 1.9 1.6-2.6 mg/dL Total Bilirubin 0.4 0.2-1.0 mg/dL Aspartate Amino Transferase (AST) 56 H 13-40 U/L Alanine Aminotransferase (ALT) 32 7-40 U/L Alkaline Phosphatase 74 46-116 U/L Total Protein 7.2 5.7-8.2 g/dL Albumin 3.3 3.2-4.8 g/dL Prothrombin Time 11.8 9.3-11.8 sec Prothrombin Time INR 1.13 0.9-1.15 Activated Partial Thromboplast Time 29.3 24.5-34.5 SEC Troponin I High Sensitivity 139 *H </=54 ng/L Test 08/11/24 19:56 08/11/24 19:42 Range/Units Blood Gas Specimen Type Arterial Blood Gas Sample Site Left radial Blood Gas Patient Temperature 37.0 Arterial Blood Date Drawn [id number] Arterial Blood pH 7.404 7.350-7.450 Arterial Blood Partial Pressure CO2 57.9 H 35.0-48.0 mmHg Arterial Blood Partial Pressure O2 69.8 L 83.0-108.0 mmHg Arterial Blood HCO3 35.4 H 21.0-28.0 mmol/L Arterial Blood Oxygen Saturation 92.3 L 94.0-98.0 % Arterial Blood Base Excess 9.1 H -2.0-3.0 mmol/L Arterial Blood Oxyhemoglobin 91.6 L 94.0-98.0 % Arterial Blood Carboxyhemoglobin 0.4 L 0.5-1.5 % Arterial Blood Methemoglobin 0.4 0.0-1.5 % Albert Test Yes Blood Gas Total Hemoglobin 10.20 L 13.5-17.5 g/dL Blood Gas Set Respiration Rate 14.0 Blood Gas Modality Mask - bipap Blood Gas Spontaneous Rate 18 FiO2 % 40.0 Blood Gas Tidal Volume 794.0 Blood Gas Spontaneous Tidal Volume 794 Blood Gas EPAP 5 Blood Gas IPAP 10 Specimen Drawn By Sunny logan rt B-Type Natriuretic Peptide 803.67 0-100 pg/mL Assessment/Plan Plan Diagnoses Left lower lobe pneumonia Acute exacerbation of COPD Atelectasis Acute on chronic hypoxemic respiratory failure Elevated troponin Patient seen and examined in the emergency room Imaging labs and x-rays reviewed Management plan Broad-spectrum antibiotics/bronchodilators Solu-Medrol for an acute exacerbation of COPD Transition to prednisone with taper prior to discharge Continue itraconazole Obtain sputum sample Supplemental O2 was needed gives off above 90% Supportive Care Otherwise management per primary team and consultants Plan discussed with: Patient MAHESH PEDERSEN MD August 13, 2024 10:48
--- NOTE | 2024-08-13 10:49 | DVHPN2 ---
Progress Note - Dictate Date Seen: August 13, 2024 Medical Necessity Reason Pt with a Central, PICC or Fol: No vital signs Vital Sign Date Time Temp Pulse Resp B/P (MAP) Pulse Ox O2 Delivery O2 Flow Rate FiO2 08/13/24 10:18 117/63 08/13/24 10:17 100 08/13/24 09:00 15 96 08/13/24 08:00 97.5 97.5 08/13/24 08:00 Nasal Cannula* 4 36 Total Intake and Output 08/12/24 08/12/24 08/13/24 15:00 23:00 07:00 Intake Total 800 ml 480 ml Output Total 2200 ml 1000 ml Balance -1400 ml -520 ml medications Current Medications Medications Dose Ordered Sig/Saige Route Start Time Stop Time Status Last Admin Dose Admin Amiodarone HCl 200 mg DAILY PO 08/12/24 10:00 08/13/24 10:17 200 MG Atorvastatin Calcium 40 mg HS PO 08/12/24 22:00 08/12/24 22:58 40 MG Aspirin 81 mg DAILY PO 08/12/24 10:00 08/13/24 10:16 81 MG Furosemide 20 mg BIDD IV 08/12/24 06:00 08/12/24 16:57 20 MG Hydrochlorothiazide 12.5 mg DAILY PO 08/12/24 10:00 08/13/24 10:18 12.5 MG Levothyroxine Sodium 100 mcg QAM@0600 PO 08/12/24 06:00 08/13/24 05:12 100 MCG Metoprolol Tartrate 25 mg BID PO 08/12/24 10:00 08/13/24 10:17 25 MG Albuterol 2.5 mg Q6HPRN PRN NEB 08/11/24 22:30 Methylprednisolone Sodium Succinate 40 mg BID IV 08/12/24 10:00 08/12/24 22:59 40 MG Ondansetron HCl 4 mg Q4HP PRN IV 08/11/24 22:30 Acetaminophen 650 mg Q6HP PRN PO 08/11/24 22:30 Nitroglycerin 0.4 mg Q5MINP PRN SL 08/11/24 22:30 Morphine Sulfate 2 mg Q30M PRN IV 08/11/24 22:30 Azithromycin 250 ml @ 125 mls/hr DAILY IV 08/12/24 10:00 08/12/24 10:04 125 MLS/HR Ipratropium [place] 0.5 mg Q6HWA NEB 08/12/24 18:00 08/13/24 07:47 0.5 MG Levalbuterol HCl 1.25 mg Q6HWA NEB 08/12/24 18:00 08/13/24 07:47 1.25 MG Rivaroxaban 20 mg QPM PO 08/12/24 18:00 08/12/24 17:57 20 MG Itraconazole 200 mg Q12HR PO 08/12/24 22:00 Budesonide 0.5 mg BID NEB 08/12/24 22:00 08/13/24 07:48 0.5 MG Ceftriaxone Sodium 50 ml @ 100 mls/hr DAILY@09 IV 08/12/24 17:41 08/13/24 09:11 100 MLS/HR Melatonin 10 mg HS PRN PO 08/13/24 03:30 08/13/24 03:37 10 MG Tamsulosin HCl 0.4 mg QPM PO 08/13/24 18:00 laboratory and microbiology Laboratory Tests 08/13/24 06:35 Test 08/13/24 06:35 Range/Units Serum Glucose 144 H 74-106 mg/dL Assessment/Plan Diagnoses Left lower lobe pneumonia Acute exacerbation of COPD Atelectasis Acute on chronic hypoxemic respiratory failure Elevated troponin Patient seen and examined in the emergency room Imaging labs and x-rays reviewed Management plan Broad-spectrum antibiotics/bronchodilators Solu-Medrol for an acute exacerbation of COPD Transition to prednisone with taper prior to discharge Continue itraconazole Supplemental O2 was needed gives off above 90% Supportive Care gi and dvt proph Plan discussed with: Patient MAHESH PEDERSEN MD August 13, 2024 10:49
--- NOTE | 2024-08-13 10:49 | DVHINCON2 ---
Date Seen: August 13, 2024 Referring Physician LIBORIO Waldron Reason for Consultation Afib/Flutter History of Present Illness This is a 74-year-old male patient who presents to the emergency room with chief complaint of worsening shortness of breath and cough for four days prior to emergency room arrival. The patient reports he was recently diagnosed with aspergillosis and is currently undergoing treatment. Cardiology has been consulted at this time for atrial fibrillation and underlying history of congestive heart failure. Initial twelve lead electrocardiogram reveals atrial fibrillation (poor quality EKG). At the time of assessment, the patient appears to be back in normal sinus rhythm with PAC's. This was confirmed with a repeat twelve lead electrocardiogram. The patient denies any chest pain. Initial troponin level of 22ng/L with current peak level at 139ng/L. Initial BNP level of 803.67pg/mL. Significant medical history includes paroxysmal atrial fibrillation on Xarelto/amiodarone therapy with recent cardiac ablation in February 2024, coronary artery disease status post PTCA including three DMITRIY on 2011 status post PTCA with balloon angioplasty of an acutely restenosed RPLB on 08/09/2018, congestive heart failure, history of PE/DVT, pulmonary hypertension, hypertension, dyslipidemia, questionable COPD, thyroid disease, benign prostatic hyperplasia, and remote history of tobacco use. 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 Mcduffie and states recently undergoing a coronary angiogram in February 2024 in which no catheter based intervention was needed. The patient also mentions undergoing a cardiac ablation in February 2024 at [facility] with . Past Medical History Past medical history reviewed. No other significant than mentioned above. Past Surgical History Cardiac ablation, 03/07/2024 PTCA including three DMITRIY in 2011 status post PTCA with balloon angioplasty of an acutely restenosed RPLB on 08/09/2018 Tonsillectomy Sinus reconstruction Family History: Diabetes mellitus GRANDMOTHER FHx: hypertension GRANDMOTHER Family History Family history reviewed. Social History The patient has a 40 pack-year history, quit smoking approximately 15 years ago Denies any illicit drug use Denies any alcohol use Allergies: Coded Allergies: NO KNOWN ALLERGIES (Unverified , 08/04/19) Home Meds Active Scripts Levofloxacin Hemihydrate (LEVAQUIN 500 MG) 500 Mg Tab, 1 TAB PO DAILY, #10 TAB Prov:OSKAR LONGORIA MD 04/01/24 Doxycycline (Monohydrate) (Doxycycline) 100 Mg Cap, 100 MG PO DAILY, #20 CAP Prov:OSKAR LONGORIA MD 04/01/24 Guaifenesin (Guaifenesin) 200 Mg Tab, 200 MG PO QID for 7 Days, #28 TAB Prov:RIO SULTANA MD 03/07/22 Prednisone (Prednisone) 20 Mg Tab, 20 MG PO BID for 5 Days, #10 TAB Prov:RIO SULTANA MD 03/07/22 Reported Medications Melatonin (KP MELATONIN) 3 Mg Tab, 40 MG PO DAILY for insomnia , TAB 08/13/24 Rivaroxaban (Xarelto Tablet) 20 Mg Tb, 20 MG PO DAILY, TAB 08/13/24 Furosemide (Furosemide) 40 Mg Tab, 40 MG PO DAILY for 30 Days 03/02/22 Warfarin Sodium (Warfarin Sodium) 2.5 Mg Tab, 2.5 MG PO DAILY for 30 Days, MG 03/02/22 Fluticasone-Salmeterol (Wixela Inhub 500-50 Mcg/Dose) 1 Aer Aer, 1 AER IN BID, AER 03/02/22 Albuterol Sulfate (Albuterol Sulfate) 0.083 % Neb, 1 VIAL NEB Q6HPRN PRN for SHORTNESS OF BREATH, #50 VIAL 08/05/19 Levothyroxine Sodium (Levothyroxine Sodium) 100 Mcg Tab, 100 MCG PO QAM for 30 Days, MCG 08/05/19 Hydrochlorothiazide (Hydrochlorothiazide) 12.5 Mg Cap, 12.5 MG PO DAILY, MG 08/05/19 Amiodarone Hcl (Amiodarone Hcl) 200 Mg Tab, 200 MG PO DAILY 08/05/19 Atorvastatin Calcium (ATORVASTATIN CALCIUM) 40 Mg Tab, 1 TAB PO HS, #30 TAB 5 Refills 08/05/19 Metoprolol Tartrate (Metoprolol Tartrate) 25 Mg Tab, 25 MG PO BID for 30 Days, MG 09/03/18 Tiotropium [place] Monohydrate (Spiriva Handihaler) 18 Mcg Cap, 18 MCG IN QAM, CAP 08/09/18 Albuterol Sulfate (VENTOLIN MDI) 90 Mcg Ih, 2 PUFF IN TID PRN for SHORTNESS OF BREATH for 30 Days, MCG 08/09/18 Aspirin (Aspir-Low) 81 Mg Tab, 81 MG PO DAILY for 30 Days, MG 08/09/18 Home Meds Home medications reviewed. Current Medications Current Medications Medications (Trade) Dose Ordered Sig/Saige Route PRN Reason Start Time Stop Time Status Last Admin Atorvastatin Calcium (Lipitor) 40 mg HS PO 08/12/24 22:00 08/12/24 22:58 Ipratropium [place] (Atrovent Medneb) 0.5 mg Q6HWA NEB 08/12/24 18:00 08/13/24 07:47 Levalbuterol HCl (Xopenex Medneb) 1.25 mg Q6HWA NEB 08/12/24 18:00 08/13/24 07:47 Rivaroxaban (Xarelto Tablet) 20 mg QPM PO 08/12/24 18:00 08/12/24 17:57 Itraconazole (Sporanox) 200 mg Q12HR PO 08/12/24 22:00 Budesonide (Pulmicort) 0.5 mg BID NEB 08/12/24 22:00 08/13/24 07:48 Ceftriaxone Sodium 50 ml @ 100 mls/hr DAILY@09 IV 08/12/24 17:41 08/13/24 09:11 Melatonin (Melatonin) 10 mg HS PRN PO FOR INSOMNIA 08/13/24 03:30 08/13/24 03:37 Tamsulosin HCl (Flomax) 0.4 mg QPM PO 08/13/24 18:00 Review of Systems Constitutional: No symptom reported Ears, Nose, & Throat: No symptom reported Eyes: No symptom reported Neurological: No symptoms reported Pulmonary/Respiratory: Shortness of breath Cardiovascular: No symptom reported Gastrointestinal: No symptom reported Genitourinary: No symptom reported Musculoskeletal: No symptom reported Skin: No symptom reported Psychiatric: No symptom reported Endocrine: No symptom reported Hematologic/Lymphatic: No symptom reported Vital Signs Vital Signs Date Time Temp Pulse Resp B/P (MAP) Pulse Ox O2 Delivery O2 Flow Rate FiO2 08/13/24 10:18 117/63 08/13/24 10:17 100 08/13/24 09:00 15 96 08/13/24 08:00 97.5 97.5 08/13/24 08:00 Nasal Cannula* 4 36 Physical Exam General Appearance: Cooperative. Well-developed. Well-nourished. No acute distress. Pulmonary/Respiratory: Diminished bilateral lower lobes Cardiovascular/Chest: Regular rate and rhythm. Peripheral Pulses: 2+ Radial (R). 2+ Radial (L). 2+ Pedal (R). 2+ Pedal (L) Abdominal Exam: Normal bowel sounds. Ankle Exam: Negative ankle edema Lower extremities: Negative lower extremity edema Neuro/Mental Status: A/OX4, coherent. Thoughts/Psych: Normal thought pattern. Appropriate mood and affect. Good judgment and insight. Appearance: No acute distress. Skin Exam: Multiple scabs to bilateral lower extremities. Normal color. Warm and dry. Labs/Diagnostic Data Labs Test 08/13/24 07:41 08/13/24 06:35 08/12/24 13:57 08/12/24 05:05 Range/Units Urine Color Colorless Yellow Urine Clarity Clear Clear Urine pH 7.5 5.0-9.0 Urine Specific [place] 1.006 1.001-1.035 Urine Protein Negative Negative Urine Ketones Negative Negative Urine Blood Trace H Negative /uL Urine Nitrite Negative Negative Urine Bilirubin Negative Negative Urine Urobilinogen Normal Negative mg/dL Urine Leukocyte Esterase Negative Negative /uL Urine RBC None seen 0 - 3 /hpf Urine Microscopic WBC < 1 0-3 /HPF Urine Squamous Epithelial Cells None seen <5 /hpf Urine Bacteria None seen None Seen /hpf Urine Glucose Normal Normal mg/dL White Blood Count 10.6 # 4.4-10.8 10^3/uL Red Blood Count 3.42 L 4.5-5.90 10^6/uL Hemoglobin 9.5 L 13.5-17.5 g/dL Hematocrit 28.5 L 41.0-53.0 % Mean Corpuscular Volume 83.3 80.0-100.0 fL Mean Corpuscular Hemoglobin 27.8 L 28.0-32.0 pg Mean Corpuscular Hemoglobin Concent 33.4 32.0-36.0 g/dL Red Cell Distribution Width 15.3 H 11.8-14.3 % Platelet Count 224 140-450 10^3/uL Mean Platelet Volume 7.4 6.9-10.8 fL Neutrophils (%) (Auto) 91.6 H 37.0-80.0 % Lymphocytes (%) (Auto) 4.1 L 10.0-50.0 % Monocytes (%) (Auto) 4.1 0.0-12.0 % Eosinophils (%) (Auto) 0.0 0.0-7.0 % Basophils (%) (Auto) 0.2 0.0-2.0 % Neutrophils # (Auto) 9.7 H 1.6-8.6 10 ^3/uL Lymphocytes # (Auto) 0.4 0.4-5.4 10 ^3/uL Monocytes # (Auto) 0.4 0-1.3 10 ^3/uL Eosinophils # (Auto) 0 0-0.8 10 ^3/uL Basophils # (Auto) 0 0-0.2 10 ^3/uL Nucleated Red Blood Cells 0.0 % Sodium Level 134 L 136-145 mmol/L Potassium Level 3.1 L 3.5-5.1 mmol/L Chloride Level 93 L 98-107 mmol/L Carbon Dioxide Level 34 H 20-31 mmol/L Anion Gap 7 5-15 Blood Urea Nitrogen 31 H 9-23 mg/dL Creatinine 1.03 0.700-1.30 mg/dL Glomerular Filtration Rate Calc 77 >90 mL/min BUN/Creatinine Ratio 30.1 H 10.0-20.0 Serum Glucose 144 H 74-106 mg/dL Calcium Level 8.3 L 8.7-10.4 mg/dL Magnesium Level 1.9 1.6-2.6 mg/dL Total Bilirubin 0.4 0.2-1.0 mg/dL Aspartate Amino Transferase (AST) 56 H 13-40 U/L Alanine Aminotransferase (ALT) 32 7-40 U/L Alkaline Phosphatase 74 46-116 U/L Total Protein 7.2 5.7-8.2 g/dL Albumin 3.3 3.2-4.8 g/dL Prothrombin Time 11.8 9.3-11.8 sec Prothrombin Time INR 1.13 0.9-1.15 Activated Partial Thromboplast Time 29.3 24.5-34.5 SEC Troponin I High Sensitivity 139 *H </=54 ng/L Test 08/11/24 19:56 08/11/24 19:42 Range/Units Blood Gas Specimen Type Arterial Blood Gas Sample Site Left radial Blood Gas Patient Temperature 37.0 Arterial Blood Date Drawn [id number] Arterial Blood pH 7.404 7.350-7.450 Arterial Blood Partial Pressure CO2 57.9 H 35.0-48.0 mmHg Arterial Blood Partial Pressure O2 69.8 L 83.0-108.0 mmHg Arterial Blood HCO3 35.4 H 21.0-28.0 mmol/L Arterial Blood Oxygen Saturation 92.3 L 94.0-98.0 % Arterial Blood Base Excess 9.1 H -2.0-3.0 mmol/L Arterial Blood Oxyhemoglobin 91.6 L 94.0-98.0 % Arterial Blood Carboxyhemoglobin 0.4 L 0.5-1.5 % Arterial Blood Methemoglobin 0.4 0.0-1.5 % Albert Test Yes Blood Gas Total Hemoglobin 10.20 L 13.5-17.5 g/dL Blood Gas Set Respiration Rate 14.0 Blood Gas Modality Mask - bipap Blood Gas Spontaneous Rate 18 FiO2 % 40.0 Blood Gas Tidal Volume 794.0 Blood Gas Spontaneous Tidal Volume 794 Blood Gas EPAP 5 Blood Gas IPAP 10 Specimen Drawn By Sunny logan rt B-Type Natriuretic Peptide 803.67 0-100 pg/mL Assessment Acute on chronic hypoxic respiratory failure secondary to pneumonia Paroxysmal atrial fibrillation, Stage 3A (on Xarelto and Amiodarone) NSTEMI, likely type II secondary to above Recent cardiac ablation on 03/07/2024, on xarelto/amiodarone therapy Coronary artery disease status post PTCA x 3DES Chronic HFpEF, NYHA class III Hypertension Dyslipidemia Aspergillosis undergoing treatment BPH Plan/Recommendation We will continue with the following plan/recommendations (Dr. Burkett): [id number] VASc score: 6 points, HAS-BLED score: 1 point. Continue home dose of Xarelto, beta-binh, and antiarrhythmic agent amiodarone. Monitor and replete electrolytes as needed, keep potassium greater than four and magnesium greater than two. Transthoracic echocardiogram from 03/28/2024 reveals an EF of 60%. Initiate GDMT for HFpEF. Continue diuretics as this is a class 1 recommendation. Consider SGLT2i. Given history of CAD including 3 DMITRIY continue single-antiplatelet therapy and lipid-lowering agent. The patient denies any chest pain. We will repeat troponin level for any significant troponin trends. Continue with close cardiac surveillance and monitor for any ECG changes. Further recommendations per clinical course and progression. Thank you for allowing us to care for this patient. Please call with any questions or c oncerns. Critical care time spent: 43 minutes This medical document was created using an electronic medical record system with voice recognition software and computerized dictation system. Although this document has been carefully reviewed, there might still be some phonetic and typographical errors. Occasional wrong-word or ``sound-alike substitutions may have occurred due to the inherent limitations of voice recognition software. These areas are purely typographical due to imperfections of the software programs and do not reflect any compromise in the patient's medical care. Please read the chart carefully and recognize, using context, where these substitutions have occurred. Plan discussed with: Patient NYHA Physical activity limitations: Class3(Marked) ordinary Date of Service: August 13, 2024 Billing Provider: HARLEY OBRIEN Cardiology Common Codes: 01647-[id number] INP/OBS CARE (High) Cardiology Consultation Codes: [id number] CONSULT <45MIN HARLEY OBRIEN August 13, 2024 10:49
[2024-08-13 11:55] LABS: Triglycerides 79 mg/dL (< 150)
[2024-08-13 11:56] LABS: LDL Cholesterol 64 mg/dL (< 100)
[2024-08-13 11:57] LABS: Cholesterol 137 mg/dL (< 200); HDL Cholesterol 42 mg/dL (40-59)
[2024-08-13] MEDS ORDERED: POTASSIUM EFFERVESENT TAB 25 MEQ PO ONE (14:45)
[2024-08-13] MEDS: TAMSULOSIN HYDROCHLORIDE 0.4 MG CAP PO SCH (16:56)
[2024-08-14] VITALS (11 sets, daily range): BP systolic 98–126; BP diastolic 57–76; PULSE 55–108; RESP 16–20; TEMP 96.8–97.6; O2SAT 95–99
--- NOTE | 2024-08-14 06:25 | DVH ---
EXAM: XR Chest, 1 View CLINICAL INDICATION: Pneumonia TECHNIQUE: Frontal view of the chest. COMPARISON: XY CHEST XRAY 1 VIEW on DOS: 08/13/24, XY CHEST PORTABLE on DOS: 08/11/24, XY CHEST XRAY 1 VIEW on DOS: 04/01/24, XY CHEST PORTABLE on DOS: 03/30/24, XY CHEST PORTABLE on DOS: 03/27/24 FINDINGS: LUNGS AND PLEURAL SPACES: Bibasilar atelectasis or pneumonia. No pneumothorax. HEART: Unremarkable. No cardiomegaly. MEDIASTINUM: Unremarkable. Normal mediastinal contour. BONES/JOINTS: Unremarkable. No acute fracture. OTHER FINDINGS: . . . IMPRESSION: Bibasilar atelectasis or pneumonia.
[2024-08-14 06:39] LABS: Basophils # (auto) 0.1 10 ^3/uL (0-0.2); Basophils % (auto) 0.4 % (0.0-2.0); Eosinophils # (auto) 0 10 ^3/uL (0-0.8); Hematocrit 31.1 % (41.0-53.0); Hemoglobin 10.3 g/dL (13.5-17.5); Lymphocytes # (auto) 0.7 10 ^3/uL (0.4-5.4); Lymphocytes % (auto) 4.7 % (10.0-50.0); Mean Corpuscular Hemoglobin 27.6 pg (28.0-32.0); Mean Corpuscular Volume 83.6 fL (80.0-100.0); Monocytes # (auto) 0.6 10 ^3/uL (0-1.3); Monocytes % (auto) 4.5 % (0.0-12.0); Neutrophils # (auto) 12.7 10 ^3/uL (1.6-8.6); Neutrophils % (auto) 90.4 % (37.0-80.0); Platelet Count (auto) 303 10^3/uL (140-450); Red Blood Cells 3.72 10^6/uL (4.5-5.90); White Blood Cell 14.1 10^3/uL (4.4-10.8)
[2024-08-14 06:44] LABS: Anion Gap 7 (5-15)
[2024-08-14 06:50] LABS: BUN/Creatinine Ratio 22.8 (10.0-20.0)
[2024-08-14 07:03] LABS: Blood Urea Nitrogen 28 mg/dL (9-23); Calcium 8.6 mg/dL (8.7-10.4); Carbon Dioxide 34 mmol/L (20-31); Chloride 93 mmol/L (98-107); Glucose 156 mg/dL (74-106); Potassium 3.4 mmol/L (3.5-5.1); Sodium 134 mmol/L (136-145)
--- NOTE | 2024-08-14 10:30 | DVHPN2 ---
Consult Progress Note Subjective Other Systems: Patient going from normal sinus rhythm to atrial fibrillation on quality assurance monitor final. Currently in atrial fibrillation with controlled rate. Denies any chest pain or palpitations. Reports improvement in shortness of breath Objective vital signs Vital Sign Date Time Temp Pulse Resp B/P (MAP) Pulse Ox O2 Delivery O2 Flow Rate FiO2 08/14/24 10:14 101 126/71 08/14/24 09:00 96.9 17 97 96.9 08/14/24 08:30 Nasal Cannula* 4 36 Total Intake and Output 08/13/24 08/13/24 08/14/24 15:00 23:00 07:00 Intake Total 50 ml Balance 50 ml medications Current Medications Medications Dose Ordered Sig/Saige Route Start Time Stop Time Status Last Admin Dose Admin Amiodarone HCl 200 mg DAILY PO 08/12/24 10:00 08/14/24 10:12 200 MG Atorvastatin Calcium 40 mg HS PO 08/12/24 22:00 08/13/24 22:31 40 MG Aspirin 81 mg DAILY PO 08/12/24 10:00 08/14/24 10:10 81 MG Furosemide 20 mg BIDD IV 08/12/24 06:00 08/14/24 07:07 20 MG Hydrochlorothiazide 12.5 mg DAILY PO 08/12/24 10:00 08/14/24 10:13 12.5 MG Levothyroxine Sodium 100 mcg QAM@0600 PO 08/12/24 06:00 08/14/24 07:04 100 MCG Metoprolol Tartrate 25 mg BID PO 08/12/24 10:00 08/14/24 10:14 25 MG Albuterol 2.5 mg Q6HPRN PRN NEB 08/11/24 22:30 Methylprednisolone Sodium Succinate 40 mg BID IV 08/12/24 10:00 08/14/24 10:08 40 MG Ondansetron HCl 4 mg Q4HP PRN IV 08/11/24 22:30 Acetaminophen 650 mg Q6HP PRN PO 08/11/24 22:30 Nitroglycerin 0.4 mg Q5MINP PRN SL 08/11/24 22:30 Morphine Sulfate 2 mg Q30M PRN IV 08/11/24 22:30 Azithromycin 250 ml @ 125 mls/hr DAILY IV 08/12/24 10:00 08/14/24 10:10 125 MLS/HR Ipratropium [place] 0.5 mg Q6HWA NEB 08/12/24 18:00 08/14/24 07:20 0.5 MG Levalbuterol HCl 1.25 mg Q6HWA NEB 08/12/24 18:00 08/14/24 07:20 1.25 MG Rivaroxaban 20 mg QPM PO 08/12/24 18:00 08/13/24 16:56 20 MG Itraconazole 200 mg Q12HR PO 08/12/24 22:00 08/14/24 10:12 200 MG Budesonide 0.5 mg BID NEB 08/12/24 22:00 08/14/24 07:20 0.5 MG Ceftriaxone Sodium 50 ml @ 100 mls/hr DAILY@09 IV 08/12/24 17:41 08/14/24 08:44 100 MLS/HR Melatonin 10 mg HS PRN PO 08/13/24 03:30 08/13/24 03:37 10 MG Tamsulosin HCl 0.4 mg QPM PO 08/13/24 18:00 08/13/24 16:56 0.4 MG Examination: GENERAL:Normal, LUNGS:Abnormal (Diminished bilateral lower lobes), CVS:Normal (Atrial fibrillation with controlled rate), NEURO:Normal laboratory and microbiology Laboratory Tests 08/14/24 05:53 Test 08/14/24 05:53 Range/Units Serum Glucose 156 H 74-106 mg/dL Problem List/Assessment/Plan Problem List/Assessment/Plan Acute on chronic hypoxic respiratory failure secondary to pneumonia Paroxysmal atrial fibrillation, Stage 3A (on Xarelto and Amiodarone) NSTEMI, likely type II secondary to above Recent cardiac ablation on 03/07/2024, on xarelto/amiodarone therapy Coronary artery disease status post PTCA x 3 DMITRIY Chronic HFpEF, NYHA class III Hypertension Dyslipidemia Aspergillosis undergoing treatment BPH Plan/Recommendations (Dr. Burkett): [id number] VASc score: 6 points, HAS-BLED score: 1 point. Continue home dose of Xarelto, beta-binh, and antiarrhythmic agent amiodarone. Monitor and replete electrolytes as needed, keep potassium greater than four and magnesium greater than two. Transthoracic echocardiogram from 03/28/2024 reveals an EF of 60%. Will repeat for any changes and/or wall motion abnormalities. Continue GDMT for HFpEF. Continue diuretics as this is a class 1 recommendation. Consider SGLT2i. Given history of CAD including 3 DMITRIY continue single-antiplatelet therapy and lipid-lowering agent. The patient denies any chest pain. Troponin levels now flat. Elevated troponin levels likely secondary to pneumonia. Continue with close cardiac surveillance and monitor for any ECG changes. Further recommendations per clinical course and progression. Thank you for allowing us to care for this patient. Please call with any questions or concerns. This medical document was created using an electronic medical record system with voice recognition software and computerized dictation system. Although this document has been carefully reviewed, there might still be some phonetic and typographical errors. Occasional wrong-word or ``sound-alike substitutions may have occurred due to the inherent limitations of voice recognition software. These areas are purely typographical due to imperfections of the software programs and do not reflect any compromise in the patient's medical care. Please read the chart carefully and recognize, using context, where these substitutions have occurred. Plan discussed with: Patient Date of Service: August 14, 2024 Billing Provider: HARLEY OBRIEN Common Visit Codes: [id number] INP/OBS CARE(HIGH) HARLEY OBRIEN August 14, 2024 10:30
[2024-08-14] MEDS ORDERED: ALBUAER3 IN (11:11)
[2024-08-14] MEDS ORDERED: AMIO200T33 PO (11:11)
[2024-08-14] MEDS ORDERED: PRED20TA2 PO (11:11)
[2024-08-14] MEDS ORDERED: ALBU0.084 NEB (11:11)
[2024-08-14] MEDS ORDERED: BUDE1AER4 IN (11:11)
[2024-08-14] MEDS ORDERED: FURO40TA4 PO (11:11)
[2024-08-14] MEDS ORDERED: CEFD300C2 PO (11:11)
--- NOTE | 2024-08-14 12:03 | DVHDS2 ---
Discharge Summary Date of Admission August 11, 2024 at 22:27 Date of Discharge: August 14, 2024 Admitting Diagnosis Acute on chronic diastolic heart failure Labs/Diagnostic Data: Laboratory Results Test 08/14/24 05:53 08/13/24 13:51 08/13/24 07:41 08/13/24 06:35 White Blood Count 14.1 10^3/uL (4.4-10.8) Red Blood Count 3.72 10^6/uL (4.5-5.90) Hemoglobin 10.3 g/dL (13.5-17.5) Hematocrit 31.1 % (41.0-53.0) Mean Corpuscular Volume 83.6 fL (80.0-100.0) Mean Corpuscular Hemoglobin 27.6 pg (28.0-32.0) Mean Corpuscular Hemoglobin Concent 33.0 g/dL (32.0-36.0) Red Cell Distribution Width 16.0 % (11.8-14.3) Platelet Count 303 10^3/uL (140-450) Mean Platelet Volume 7.4 fL (6.9-10.8) Neutrophils (%) (Auto) 90.4 % (37.0-80.0) Lymphocytes (%) (Auto) 4.7 % (10.0-50.0) Monocytes (%) (Auto) 4.5 % (0.0-12.0) Eosinophils (%) (Auto) 0.0 % (0.0-7.0) Basophils (%) (Auto) 0.4 % (0.0-2.0) Neutrophils # (Auto) 12.7 10 ^3/uL (1.6-8.6) Lymphocytes # (Auto) 0.7 10 ^3/uL (0.4-5.4) Monocytes # (Auto) 0.6 10 ^3/uL (0-1.3) Eosinophils # (Auto) 0 10 ^3/uL (0-0.8) Basophils # (Auto) 0.1 10 ^3/uL (0-0.2) Nucleated Red Blood Cells 0.0 % Sodium Level 134 mmol/L (136-145) Potassium Level 3.4 mmol/L (3.5-5.1) Chloride Level 93 mmol/L (98-107) Carbon Dioxide Level 34 mmol/L (20-31) Anion Gap 7 (5-15) Blood Urea Nitrogen 28 mg/dL (9-23) Creatinine 1.23 mg/dL (0.700-1.30) Glomerular Filtration Rate Calc 62 mL/min (>90) BUN/Creatinine Ratio 22.8 (10.0-20.0) Serum Glucose 156 mg/dL (74-106) Calcium Level 8.6 mg/dL (8.7-10.4) Troponin I High Sensitivity 59 ng/L (</=54) Urine Color Colorless (Yellow) Urine Clarity Clear (Clear) Urine pH 7.5 (5.0-9.0) Urine Specific [place] 1.006 (1.001-1.035) Urine Protein Negative (Negative) Urine Ketones Negative (Negative) Urine Blood Trace /uL (Negative) Urine Nitrite Negative (Negative) Urine Bilirubin Negative (Negative) Urine Urobilinogen Normal mg/dL (Negative) Urine Leukocyte Esterase Negative /uL (Negative) Urine RBC None seen /hpf (0 - 3) Urine Microscopic WBC < 1 /HPF (0-3) Urine Squamous Epithelial Cells None seen /hpf (<5) Urine Bacteria None seen /hpf (None Seen) Urine Glucose Normal mg/dL (Normal) Magnesium Level 1.9 mg/dL (1.6-2.6) Total Bilirubin 0.4 mg/dL (0.2-1.0) Aspartate Amino Transferase (AST) 56 U/L (13-40) Alanine Aminotransferase (ALT) 32 U/L (7-40) Alkaline Phosphatase 74 U/L (46-116) Total Protein 7.2 g/dL (5.7-8.2) Albumin 3.3 g/dL (3.2-4.8) Triglycerides Level 79 mg/dL (< 150) Cholesterol Level 137 mg/dL (< 200) LDL Cholesterol 64 mg/dL (< 100) HDL Cholesterol 42 mg/dL (40-59) Thyroid Stimulating Hormone (TSH) 3.89 uIU/mL (0.55-4.78) Test 08/12/24 13:57 08/11/24 19:56 08/11/24 19:42 Prothrombin Time 11.8 sec (9.3-11.8) Prothrombin Time INR 1.13 (0.9-1.15) Activated Partial Thromboplast Time 29.3 SEC (24.5-34.5) Blood Gas Specimen Type Arterial Blood Gas Sample Site Left radial Blood Gas Patient Temperature 37.0 Arterial Blood Date Drawn [id number] Arterial Blood pH 7.404 (7.350-7.450) Arterial Blood Partial Pressure CO2 57.9 mmHg (35.0-48.0) Arterial Blood Partial Pressure O2 69.8 mmHg (83.0-108.0) Arterial Blood HCO3 35.4 mmol/L (21.0-28.0) Arterial Blood Oxygen Saturation 92.3 % (94.0-98.0) Arterial Blood Base Excess 9.1 mmol/L (-2.0-3.0) Arterial Blood Oxyhemoglobin 91.6 % (94.0-98.0) Arterial Blood Carboxyhemoglobin 0.4 % (0.5-1.5) Arterial Blood Methemoglobin 0.4 % (0.0-1.5) Albert Test Yes Blood Gas Total Hemoglobin 10.20 g/dL (13.5-17.5) Blood Gas Set Respiration Rate 14.0 Blood Gas Modality Mask - bipap Blood Gas Spontaneous Rate 18 FiO2 % 40.0 Blood Gas Tidal Volume 794.0 Blood Gas Spontaneous Tidal Volume 794 Blood Gas EPAP 5 Blood Gas IPAP 10 Specimen Drawn By Sunny logan rt B-Type Natriuretic Peptide 803.67 pg/mL (0-100) Other Laboratory Tests 08/14/24 05:53 Brief Hx & Hospital Course: History of Present Illness 74-year-old male presents for evaluation of shortness for breath. Patient reports a one day history of worsening shortness for breath with associated wheezing and chest tightness. Denies cough or fever. No other acute complaints reported Course of hospitalization: Patient was given IV diuresis with residual left lower lobe opacity via appreciated. Patient was eventually weaned off BiPAP, now on his baseline O2 supplementation of 2-3 L/min. Long discussion was made with the patient regarding his medical history which includes COPD, and current treatment for aspergillosis. Itraconazole was continued at dosage provided by his infectious disease doctor as an outpatient. Patient was also started on Rocephin and azithromycin. Given the patient had mild increase in troponin level, with the associated chest pain, Cardiology was obtained. NSTEMI type 2 as well as HefPef was diagnosed with the patient given his preserved ejection fraction. Patient also has a significant history of CAD with recent left heart catheterization, without any findings amenable for need of intervention. Patient also has a history of AFib with ablation, with the patient having paroxysmal atrial fibrillation/flutter, for which the patient was continued on his home dose of Xarelto. The patient states that all his symptoms have resolved and he is close to his baseline status with respect to activity as well as respiratory status. Patient was agreeable to be discharged home and follow up with his PCP, infectious disease doctor as well as store clerk for continued treatment of his comorbidities. He will be continued on prednisone 40 mg p.o. x3 days, titrating down to 20 mg p.o. daily times four days. Patient will also be continued on antibiotic therapy with cefdinir 300 mg p.o. b.i.d. for total of seven days. Patient was agreeable this discharge plan. All questions answered. Physical examination General: Alert and Oriented x3. No acute distress. Well-nourished. Eyes: EOMI. Anicteric. HENT: Moist mucous membranes. Lungs: Clear to auscultation bilaterally. No accessory muscle use. Cardiovascular: Regular rate and rhythm. No murmur. No JVD. Abdomen: Soft, non-tender and non-distended. No palpable masses. Extremities: No edema. Non-tender. Skin: No rashes or lesions. Warm. Neurologic: No focal neurological deficits. CN II-XII grossly intact, but not individually tested. Psychiatric: Cooperative. Appropriate mood and affect. Total time spent with patient discussing and formulating plan of care: 35 minutes. This medical document was created using an electronic medical record system with [employer] dictation system. Although this document has been carefully reviewed, there may still be some phonetic and typographical errors. These areas are purely typographical due to imperfections of the software programs, and do not reflect any compromise in the patient's medical care. Consults/Reason for consult Cardiology: Elevated troponin, paroxysmal AFib with RVR, chest pressure Pulmonology: History of COPD, current treatment with itraconazole for Aspergillus Condition at Discharge: Guarded Final Diagnosis/Problems List Acute on Chronic Hypoxic Respiratory Failure Secondary diagnosis: -acute on chronic hypoxic respiratory failure -questionable COPD with exacerbation -aspergillosis with current treatment with itraconazole -NSTEMI, questionable type 2 -AFib with RVR, status post AFib ablation -acute decompensated heart failure, probable diastolic in nature -BPH, awaiting prostate artery ablation Discharge Disposition: Home Discharge Instruct/Medications Diet: Consistent carbohydrate Activity: No Restrictions, As Tolerated Follow Up/Referral: PCP in 1-2 weeks ID in 1-2 weeks Pulmonology in 1-2 weeks Medications: Continue home medications Cefdinir 300mg po bid x 7 days Prednisone 40mg x 3 days, then 20mg po x 4 days 36 Discharge Statement: "Patient was advised to return to the ER or call 911 if any headaches, dizziness, shortness of breath, chest pain, abdominal pain, bleeding, fevers, or worsening of medical condition. Patient was counseled about treatment plan, medications, possible side effects, patientverbalized understanding. All questions were answered to the best of my ability. This discharge took greater then 30 minutes in planning, reviewing documentation, counseling the patient, and discussing with other team members." ASSESSMENT ASSESSMENT Assessment Acute on Chronic Hypoxic Respiratory Failure Date of Service: August 14, 2024 Billing Provider: JELENA MUNOZ NP Common Visit Codes: 24671-AEA/OBS DISCH DAY >30min JELENA MUNOZ NP August 14, 2024 12:03
[2024-08-14] MEDS: POTASSIUM CHL 20 Meq TABLET PO ONE (12:29)
--- NOTE | 2024-08-15 12:27 | ECG ---
[facility] Test Date: 2024-08-13 Test Time: 11:30:27 Pat Name: JANET CHAN Department: ED Room: 0238T A Gender: M Customer Quality Specialist: JUNG : 1950 Requested By: CATALINA RYAN Order Number: [id number] Reading MD: Measurements Intervals [place] Rate: 63 P: 64 WV: 157 QRS: 76 QRSD: 114 T: 71 QT: 506 QTc: 519 Interpretive Statements Sinus rhythm Multiple ventricular premature complexes Borderline intraventricular conduction delay Prolonged QT interval Please click the below link to view image of tracing.
--- NOTE | 2024-08-15 17:12 | DVHSR ---
APPROVED REPORT EXAM: LIMITED Two-dimensional echocardiogram. Blood Pressure: 126/71 mmHg INDICATION Re-evaluate cardiac function RISK FACTORS Height: 6', Weight: 200 DIMENSIONS LVDd5.4 (3.8-5.7cm)LA (2D)5.5 (1.9-4.0cm)Aortic Root (2.0-3.7cm) LVDs4.0 (2.5-4.0cm)LA (MM) (1.9-4.0cm)Aortic Cusp Exc (1.5-2.0cm) EF (%) 50.0 (55-70%)Rt. Atrium4.5 (1.9-4.0cm)Asc. Aorta cm IVSd1.2 (0.7-1.1cm)RV (D) (1.8-2.4cm) PWd1.0 (0.7-1.1cm) Mitral Valve MitralMitral Stenosis E/A ratio0.02D MVAcm2 Conclusion Technically good study sinus rhythm. Biatrial enlargement. RV enlargement. Concentric LVH. Mild sclerosis of the aortic leaflets without diminished excursion. The mitral tricuspid and pulmoni c or structurally normal. Left ventricular function is preserved at 60% with normal RV function. Dopplers unremarkable. No pericardial effusion masses or vegetations.
== END 2024-08-14 14:50 | disposition home or self-care (01) | DRG 280 ==
LOC: EDBD 19:31 → ER 19:37 → OVERFLOW 22:27 → TELE-EAST 08-13 18:44
PROVIDERS: ADMIT Nurse Practitioner Acute Care; ATTEND Nurse Practitioner Acute Care
PROC: 5A09357 Assistance with Respiratory Ventilation, Less than 24 Consecutive Hours, Continuous Positive Airway Pressure (ICD-10-PCS; principal; 2024-08-11)
PROC: 5A09357 Assistance with Respiratory Ventilation, Less than 24 Consecutive Hours, Continuous Positive Airway Pressure (ICD-10-PCS; 2024-08-12)
DX: I11.0 Hypertensive heart disease with heart failure (principal); I50.33 Acute on chronic diastolic (congestive) heart failure; I21.A1 Myocardial infarction type 2; J96.21 Acute and chronic respiratory failure with hypoxia; J18.9 Pneumonia, unspecified organism; J44.1 Chronic obstructive pulmonary disease with (acute) exacerbation; I48.92 Unspecified atrial flutter; B44.9 Aspergillosis, unspecified; J44.0 Chronic obstructive pulmonary disease with (acute) lower respiratory infection; N40.0 Benign prostatic hyperplasia without lower urinary tract symptoms; I48.0 Paroxysmal atrial fibrillation; E78.5 Hyperlipidemia, unspecified; I25.10 Atherosclerotic heart disease of native coronary artery without angina pectoris; I27.20 Pulmonary hypertension, unspecified; Z79.01 Long term (current) use of anticoagulants; Z79.899 Other long term (current) drug therapy; Z79.2 Long term (current) use of antibiotics; Z79.82 Long term (current) use of aspirin; Z83.3 Family history of diabetes mellitus; Z82.49 Family history of ischemic heart disease and other diseases of the circulatory system; Z98.61 Coronary angioplasty status; Z86.711 Personal history of pulmonary embolism; Z86.718 Personal history of other venous thrombosis and embolism; Z87.891 Personal history of nicotine dependence; Z99.81 Dependence on supplemental oxygen
CPT/HCPCS: 36415; 36600; 71045; 80048; 80053; 80061; 81001; 82805; 83735; 83880; 84443; 84484; 85025; 85610; 85730; 93005; 93306; 94640; 94660; 96374; 96375; 99291; G0378